=== PATIENT | female | born 1945 | race Caucasian/White ===

== ENCOUNTER → 2016-10-27 | Outpatient (CLI) | payer MEDICARE, BC ==
--- NOTE | 2016-10-27 15:38 | CR ---
EXAMINATION: Right knee HISTORY: Pain COMPARISON: 09/29/2016 TECHNIQUE: 3 views FINDINGS/IMPRESSION: Right total knee hardware is demonstrated in good position and alignment. No ac [place] osseous abnormality or fracture identified. Postoperative soft tissue changes noted without an u nderlying joint effusion.
== END | disposition home or self-care (01) ==
LOC: MW.CHORTHO 07:56
PROVIDERS: ATTEND Orthopaedic Surgery
DX: M25.561 Pain in right knee (principal); M79.1 Myalgia; L90.5 Scar conditions and fibrosis of skin; M79.89 Other specified soft tissue disorders; Z96.651 Presence of right artificial knee joint; M17.11 Unilateral primary osteoarthritis, right knee; Z98.890 Other specified postprocedural states
CPT/HCPCS: 20550; 73562; G0463; J1030

== ENCOUNTER → 2016-12-01 | Outpatient (CLI) | payer MEDICARE, BC | LOC: MW.CHORTHO 08:00 | PROVIDERS: ATTEND Orthopaedic Surgery | DX: M17.11 Unilateral primary osteoarthritis, right knee (principal); Z96.651 Presence of right artificial knee joint | CPT/HCPCS: G0463 ==

== ENCOUNTER → 2017-01-12 | Outpatient (CLI) | payer MEDICARE, BC | LOC: MW.CHORTHO 08:00 | PROVIDERS: ATTEND Orthopaedic Surgery | DX: M17.12 Unilateral primary osteoarthritis, left knee (principal); M17.11 Unilateral primary osteoarthritis, right knee; T84.84XA Pain due to internal orthopedic prosthetic devices, implants and grafts, initial encounter; Z96.659 Presence of unspecified artificial knee joint | CPT/HCPCS: 99214 ==

== ENCOUNTER → 2017-01-19 | Outpatient (CLI) | payer MEDICARE, BC | LOC: MW.MRI 10:47 | PROVIDERS: ATTEND Orthopaedic Surgery | DX: M17.12 Unilateral primary osteoarthritis, left knee (principal) | CPT/HCPCS: 73721-LT ==

== ENCOUNTER 2017-02-15 08:00 | Inpatient (IN) | payer MEDICARE, BC ==
[~2017-02-15 08:00] MED LIST: Acetaminophen 500 MG Tab PO SCH; Famotidine 20 MG/2 ML SDV IVPUSH SCH; Ropivacaine 49.25 ML, EPINEPHrine 0.5 MG, cloNIDine 80 MCG in Sodium Chloride 0.9% 49.4... INJECT ONE; Scopolamine 1.5 MG Transdermal Patch TRDERM SCH; ceFAZolin 2 GM in Premix Bag 1 BAG IV SCH; oxyCODONE ER 10 MG TAB.ER PO SCH
[2017-02-15] MEDS: Lactated Ringers 1,000 ML IV SCH ×2 (10:01→20:19)
[2017-02-15] MEDS ORDERED: Lidocaine 1% 50 ML MDV ONE (10:38)
[2017-02-15] MEDS ORDERED: Midazolam 1 MG/ML 2 ML SDV ONE ×2 (10:58→11:49)
[2017-02-15] MEDS ORDERED: fentaNYL 100 MCG/2 ML SDV ONE (10:58)
[2017-02-15] MEDS ORDERED: Propofol 200 MG/20 ML SDV ONE ×3 (11:03→13:23)
[2017-02-15] MEDS ORDERED: ceFAZolin 1 GM Vial ONE (11:28)
[2017-02-15] MEDS ORDERED: Lidocaine 2% 5 ML SDV ONE (11:36)
--- NOTE | 2017-02-15 11:48 | PCM.PREANE ---
Preanesthetic Assessment - Procedure Proposed Procedure: right knee arthroscopy, and left total knee replacement - Anesthesia/Transfusion/Family Hx Anesthesia History: Prior Anesthesia Without Reaction Other Type of Anesthesia Reaction Comment: Denies any known problem in past Family History of Anesthesia Reaction: No Transfusion History: No Prior Transfusion(s) Intubation History: Unknown - Review of Systems General: No Symptoms Pulmonary: No Symptoms (hx of asthma....uses inhaler daily) Cardiovascular: Other (hypertension-treated) Gastrointestinal: No symptoms Neurological: Other (pain in right knee (s/p replacement)) Other: Reports: Diabetes - Physical Assessment NPO Status Date: 02/14/17 NPO Status Time: 22:00 O2 Sat by Pulse Oximetry: 95 Respiratory Rate: 16 Temperature: 98.8 F Vital Signs: Last Vital Signs Temp 98.8 F 02/15/17 10:56 Pulse 77 02/15/17 09:59 Resp 16 02/15/17 09:59 BP 133/76 02/15/17 09:59 Pulse Ox 95 02/15/17 09:59 Height: 5 ft 3 in Weight: 178 lb ASA Class: 3 Mental Status: Alert & Oriented x3 Dentition: Reports: Normal Dentition ROM/Head Extension: Full Lungs: Clear to auscultation, Normal respiratory effort Cardiovascular: Regular Rate, Regular Rhythm - Lab Values: Laboratory Last Values Blood Type O POSITIVE 02/15/17 10:30 Antibody Screen NEGATIVE 02/15/17 10:30 - Allergies Allergies/Adverse Reactions: Allergies Allergy/AdvReac Type Severity Reaction Status Date / Time No Known Allergies Allergy Verified 09/10/16 12:22 - Blood Blood Available: Yes Product(s) Available: PRBC (T and S) - Anesthesia Plan Pre-Op Medication Ordered: Other (per surgeon) - Acknowledgements Anesthesia Type Planned: Spinal Pt an Appropriate Candidate for the Planned Anesthesia: Yes Alternatives and Risks of Anesthesia Discussed w Pt/Guardian: Yes Pt/Guardian Understands and Agrees with Anesthesia Plan: Yes PreAnesthesia Questionnaire HEENT History: Reports: Other (See Below) Other HEENT History: loss of hearing left ear, wears glasses Cardiovascular History: Reports: Hypertension, Other (See Below) Other Cardiovascular History: states "had blood clot to stomach in 1973 which caused a miscarriage" Respiratory History: Reports: Asthma Other Respiratory History: mild asthma Gastrointestinal History: Reports: Cholelithiasis, Diverticulosis, Other (See Below) Other Gastrointestinal History: occasional reflux Genitourinary History: Reports: None 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: Musculoskeletal History: Reports: Arthritis, Back Pain, Chronic, Fibromyalgia, Osteoporosis Neurological History: Reports: None Other Neuro History: Degenerative disc disease low back Psychiatric History: Reports: None Endocrine/Metabolic History: Reports: Obesity/BMI 30+ Hematologic History: Reports: None Immunologic History: Reports: None Oncologic (Cancer) History: Reports: None Dermatologic History: Reports: None - Infectious Disease History Infectious Disease History: Reports: Chicken Pox, Measles, Mumps - Past Surgical History Head Surgeries/Procedures: Reports: None HEENT Surgical History: Reports: Other (See Below) Other HEENT Surgeries/Procedures: Fer cataract extraction with lens implants Cardiovascular Surgical History: Reports: None Respiratory Surgical History: Reports: None GI Surgical History: Reports: Appendectomy, Cholecystectomy, Colonoscopy Female Surgical History: Reports: Hysterectomy Other Female Surgeries/Procedures: urinary frequency Neurological Surgical History: Reports: None Musculoskeletal Surgical History: Reports: Arthroscopic Knee, Carpal Tunnel, Knee Replacement, Other (See Below) Other Musculoskeletal Surgeries/Procedures:: trigger finger release on both hands, Oncologic Surgical History: Reports: None - SUBSTANCE USE Smoking Status *Q: Never Smoker Tobacco Use Within Last Twelve Months: No Second Hand Smoke Exposure: No Days Per Week of Alcohol Use: 0 Number of Drinks Per Day: 0 Total Drinks Per Week: 0 Recreational Drug Use History: No - HOME MEDS Home Medications: Home Meds Albuterol [Proair HFA] 1 - 2 inh INH ASDIRECTED PRN 04/04/15 [History] Losartan Potassium 12.5 mg PO BRK 04/04/15 [History] Ca Citrate/Mgox/Vit D3/B6/Min [Calcium Citrate Plus Tablet] 1 tab PO DAILY 06/05 [History] Coconut Oil 1 cap PO DAILY 06/05/16 [History] Multivitamin [Multi-Day Vitamins] 1 tab PO DAILY 06/05/16 [History] Acetaminophen [Arthritis Pain Relief] 2 tab PO ASDIRECTED PRN 02/11/17 [History] Cholecalciferol (Vitamin D3) [Vitamin D3] 5,000 units PO ASDIRECTED 02/11/17 [ History] - CURRENT (IN HOUSE) MEDS Current Meds: Current Medications Acetaminophen (Tylenol Extra Strength) 1,000 mg PO ONARRIVE SRINIVAS Last Admin: 02/15/17 10:56 Dose: 1,000 mg Famotidine (Pepcid) 40 mg IVPUSH ONARRIVE SRINIVAS Last Admin: 02/15/17 10:57 Dose: 40 mg Lactated Ringer's (Ringers, Lactated) 1,000 mls @ 100 mls/hr IV ASDIRECTED SRINIVAS Last Admin: 02/15/17 10:01 Dose: 100 mls/hr Cefazolin Sodium/Dextrose 2 gm (/ Premix) 50 mls @ 100 mls/hr IV ONCALL SRINIVAS Oxycodone HCl (Oxycontin) 10 mg PO ONARRIVE SRINIVAS Last Admin: 02/15/17 10:57 Dose: 10 mg Scopolamine (Transderm-Scop) 1.5 mg TRDERM ONARRIVE SRINIVAS Last Admin: 02/15/17 10:55 Dose: 1.5 mg Tranexamic Acid (Cyklokapron) 4,000 mg IV SEECOMMENT [facility] Discontinued Medications Cefazolin Sodium (Ancef) Confirm Administered Dose 2 gm .ROUTE .STK-MED ONE Stop: 02/15/17 11:29 Fentanyl (Sublimaze) Confirm Administered Dose 100 mcg .ROUTE .STK-MED ONE Stop: 02/15/17 10:59 Ropivacaine 49.25 ml/Epinephrine HCl 0.5 mg/Clonidine HCl 80 mcg/ Sodium Chloride 100 mls @ 50 mls/min INJECT ONETIME ONE Stop: 02/15/17 07:16 Lidocaine (Xylocaine-Mpf 2%) Confirm Administered Dose 5 ml .ROUTE .STK-MED ONE Stop: 02/15/17 11:37 Lidocaine HCl (Xylocaine 1%) Confirm Administered Dose 50 ml .ROUTE .STK-MED ONE Stop: 02/15/17 10:39 Midazolam HCl (Versed 1 Mg/Ml) Confirm Administered Dose 2 mg .ROUTE .STK-MED ONE Stop: 02/15/17 10:59 Propofol (Diprivan 20 Ml) Confirm Administered Dose 400 mg .ROUTE .STK-MED ONE Stop: 02/15/17 11:04 Tranexamic Acid (Cyklokapron) Confirm Administered Dose 2,000 mg .ROUTE .STK- MED ONE Stop: 02/15/17 06:54 Tranexamic Acid (Cyklokapron) Confirm Administered Dose 4,000 mg .ROUTE .STK- MED ONE Stop: 02/15/17 10:26
[2017-02-15] MEDS ORDERED: Metoclopramide 10 MG/2 ML SDV IVPUSH ONE (12:06)
[2017-02-15] MEDS ORDERED: HYDROmorphone 2 MG/ML Syringe IVPUSH PRN (12:06)
[2017-02-15] MEDS ORDERED: Ondansetron 4 MG/2 ML SDV IVPUSH ONE (12:06)
[2017-02-15] MEDS ORDERED: fentaNYL 100 MCG/2 ML SDV IVPUSH PRN (12:06)
--- NOTE | 2017-02-15 12:06 | PCM.SN ---
- Free Text/Narrative Note: Anesthesia SAB note: Pt to OR via cart. Helped to OR table. Positioned for sitting SAB. After monitors placed on pt the pt back was prepped with beta X3. Lido 1% skin wheal and deep injection. Introducer placed and a 25g Pencan SAB needle place until a pop was felt. The stylet was pulled out and clear CSF noted. No parathesia noted. 14mg Spinal bupivicaine was injected in a slow fashion. NO complications noted for SAB. 25mcg fentanyl intrathecal 1135 uneventful SAB
[2017-02-15] MEDS ORDERED: Bupivacaine 0.5% 30 ML SDV ONE (12:18)
[2017-02-15] MEDS ORDERED: Bupivacaine 0.25% 10 ML SDV ONE (12:20)
[2017-02-15] MEDS ORDERED: Morphine 4 MG/ML Syringe IVPUSH PRN (14:16)
[2017-02-15] MEDS ORDERED: Aluminum Hydroxide/Magnesium Hydroxide/Simethicone Susp 30 ML Cup PO PRN (14:16)
[2017-02-15] MEDS ORDERED: Bisacodyl 10 MG Supp RECTAL PRN (14:16)
[2017-02-15] MEDS ORDERED: Albuterol 8 GM Inhaler INH PRN (14:19)
[2017-02-15] MEDS ORDERED: Acetaminophen 500 MG Tab PO SCH (14:30)
--- NOTE | 2017-02-15 14:33 | PCM.OPNOTE ---
- General Post-Op/Procedure Note Date of Surgery/Procedure: 02/15/17 Operative Procedure(s): 1. L TKA. 2. R knee arthroscopy with limited synovectomy Post-Op Diagnosis: 1. DJD left knee. 2. s/p right knee TKA with synovitis/scar tissue Anesthesia Technique: Moderate sedation, Spinal Primary Surgeon: Shanice Sigala Iv Therapy Nurse: Dov Aguero Iv Therapy Nurse: Laurence Layton EBL in mLs: 50 Condition: Good Free Text/Narrative:: tt=33 min right, 56 min left #[id number]
--- NOTE | 2017-02-15 15:00 | PCM.POSTAN ---
POST ANESTHESIA ASSESSMENT - MENTAL STATUS Mental Status: alert, oriented - RESPIRATORY Respiratory Status: respiratory rate WNL, airway patent, O2 saturation stable - CARDIOVASCULAR CV Status: pulse rate WNL, blood pressure stable - GASTROINTESTINAL GI Status: no symptoms - PAIN Pain Score: 0 (sensation still blocked although moving her feet.) - POST OP HYDRATION Hydration Status: adequate & stable - OBSERVATIONS Free Text/Narrative:: discharged to the floor for phase II.
--- NOTE | 2017-02-15 15:29 | OR ---
SURGEON: Shanice Sigala MD DATE OF PROCEDURE: 02/15/2017 PREOPERATIVE DIAGNOSES: 1. Degenerative joint disease left knee, tricompartmental. 2. Status post right total knee arthroplasty. 3. Painful right total knee arthroplasty. POSTOPERATIVE DIAGNOSES: 1. Degenerative joint disease left knee, tricompartmental. 2. Status post right total knee arthroplasty. 3. Painful right total knee arthroplasty. PROCEDURE(s): 1. Left total knee arthroplasty using patient specific instrumentation. 2. Right knee arthroscopy with limited synovectomy. 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 ANESTHESIA: Spinal with sedation. ESTIMATED BLOOD LOSS: 50 mL. TOURNIQUET TIME: 36 minutes on the right and 56 minutes on the left. COMPLICATIONS: None. DVT PROPHYLAXIS: PAS boot and HARDIK hose to the nonoperative leg during the total knee arthroplasty. IMPLANTS USED: [employer] femoral component size E (LPS), tibial component, size 4, 12 mm all-polyethylene articular surface, and 32 mm all-polyethylene patella. INTRAOPERATIVE FINDINGS: Findings from the left total knee arthroplasty showed evidence of tricompartmental degenerative changes. She had grade 4 chondromalacia in all compartments. Osteophyte formation was also noted. She had no significant synovitis. A 1 g of tranexamic acid was given prior to the tourniquet inflation. An additional 1 g was given IV upon deflation of the tourniquet. We did apply 1 g of TXA topically as the cement was allowed to harden. BRIEF HISTORY: Michelle is a 71-year-old female, who has had complaint of progressive left knee pain. She had failed conservative treatment. Due to her lack of response to conservative treatment, I did recommend surgical intervention. The risks and goals of procedure were discussed with the patient and were documented preoperatively. She agreed to proceed. She has recently noticed increased pain in her right knee as well. She complains of a catching sensation with certain movements. She was examined in clinic. We did do a trial of conservative treatment, which did not help her. Due to her continued mechanical symptoms, I did recommend a knee arthroscopy to evaluate the prosthesis as well as the scar tissue. The risks and goals of the procedure were discussed with the patient and were documented preoperatively. She agreed to proceed. DESCRIPTION OF PROCEDURE: The patient was properly identified and brought to the operating room. She was transferred from the OR cart and placed on the operating table in a supine position. Spinal anesthesia was then administered by the anesthesia staff. After adequate anesthesia was obtained, a well-padded tourniquet was applied to the right lower extremity. The right lower extremity was then prepped in standard fashion using ChloraPrep solution. It was then sterilely draped. A time-out was performed to ensure correct site and procedure. Preoperative antibiotics were given. The surgical sites were not marked due to the bilateral nature of the procedures. An Esmarch was used to exsanguinate the right lower extremity and then tourniquet was inflated to 250 mmHg. Her knee was examined. She did have motion from 0 to 120 degrees. She was stable to varus and valgus stressing, and did not appear to have a significant anterior translation. The lateral portal arthrotomy was made over the site of the previous arthrotomy. Blunt trocar and cannula were introduced into the suprapatellar space. Camera, inflow, and outflow were assembled. She had no significant scar tissue in the suprapatellar space. She did have abundant scar tissue surrounding the patella. The patella appeared to track centrally. No wear of the patella was noted. The trochlea showed no abnormal findings. I then used an 11 blade scalpel to make the medial portal arthrotomy through the site of the previous arthrotomy incision. A trocar was introduced into the suprapatellar region. A shaver was then introduced. Synovectomy of the surrounding scar tissue around the patella was then performed. There appeared to be no further catching of the tissue within the joint. I then extended down the lateral gutter. No loose bodies were identified. I then extended down the medial gutter. No loose bodies were identified. There was abundant scar formation in this area. This seemed to impinge within the medial joint space between the articular surface and the femoral prosthesis. A shaver was used to resect this. I then entered the notch. The post was visualized. This was extensively probed. It did not appear to have significant loosening. I was able to visualize the polyethylene interface with the tibial tray as the post was probed. I did not appreciate any movement at this site consistent with good stability. The lateral gutter also showed significant synovitis and scar tissue, which appeared to be impinging as well. The shaver was used to resect this portion of soft tissue as well. The knee was then taken through a range of motion. No catching or impingement was palpated or appreciated. Instruments were then removed from the knee. The portal sites were closed with 3-0 nylon. A 0.5% Marcaine was injected along the portal tracts. Xeroform gauze was placed over the wound and a bulky dressing was applied. The tourniquet was then deflated. FELISHA CAMPUZANO /[id number] KRYSTAL
[2017-02-15] MEDS: Acetaminophen 500 MG Tab PO SCH ×2 (15:55→21:38)
[2017-02-15] MEDS: oxyCODONE 5 MG Tab PO PRN ×2 (15:55→21:39)
--- NOTE | 2017-02-15 16:59 | CR ---
EXAMINATION: Left knee HISTORY: Total knee replacement COMPARISON: 09/29/2016 TECHNIQUE: 2 views FINDINGS/IMPRESSION: Left total knee hardware is demonstrated in good position and alignment. Postop erative soft tissue changes are noted.
[2017-02-15] MEDS: Ondansetron 4 MG/2 ML SDV IV PRN (18:12)
[2017-02-15] MEDS: oxyCODONE ER 20 MG TAB.ER PO SCH (20:14)
[2017-02-15] MEDS: Docusate Sodium 100 MG Cap PO SCH (20:14)
[2017-02-15] MEDS: ceFAZolin 2 GM in Premix Bag 1 BAG IV SCH (20:16)
[2017-02-16] MEDS: Acetaminophen 500 MG Tab PO SCH ×4 (04:09→21:09)
[2017-02-16] MEDS: ceFAZolin 2 GM in Premix Bag 1 BAG IV SCH (04:12)
[2017-02-16] MEDS: Lactated Ringers 1,000 ML IV SCH (07:33)
[2017-02-16] MEDS: oxyCODONE 5 MG Tab PO PRN ×3 (07:41→17:12)
[2017-02-16] MEDS: Ondansetron 4 MG/2 ML SDV IV PRN (07:41)
[2017-02-16] MEDS ORDERED: Sodium Chloride 0.9% 2.5 ML Syringe FLUSH PRN (08:08)
[2017-02-16] MEDS ORDERED: Sodium Chloride 0.9% 10 ML Syringe FLUSH PRN (08:08)
--- NOTE | 2017-02-16 08:08 | PCM.SURGPN ---
[id number] of Surgery/Procedure: 02/15/17 POD#: 1 Functional Status: Reports: pain controlled, tolerating diet, ambulating - Review of Systems General: Reports: No Symptoms Pulmonary: Reports: no symptoms Cardiovascular: Reports: No Symptoms Gastrointestinal: Reports: No symptoms Genitourinary: Reports: no symptoms Musculoskeletal: Reports: leg pain, joint pain, joint swelling Neurological: Reports: No Symptoms Psychiatric: Reports: no symptoms - Patient Data Vitals - most recent: Last Vital Signs Temp 37.4 C 02/16/17 07:41 Pulse 89 02/16/17 07:41 Resp 20 02/16/17 07:41 BP 128/65 02/16/17 07:41 Pulse Ox 90 L 02/16/17 07:41 Weight - most recent: 80.739 kg I&O - last 24 hours: Intake & Output 02/15/17 02/16/17 02/16/17 22:59 06:59 14:59 Intake Total 563 350 Output Total 450 Balance 563 -100 Lab Results last 24 hrs: Laboratory Results - last 24 hr 02/15/17 02/16/17 Range/Units 10:30 04:28 Hgb 12.0 (12.0-16.0) g/dL Hct 36.7 (36.0-46.0) % Blood Type O POSITIVE Antibody Screen NEGATIVE Med Orders - Current: Current Medications Acetaminophen (Tylenol Extra Strength) 1,000 mg PO Q6H [facility] Last Admin: 02/16/17 04:09 Dose: 1,000 mg Al Hydroxide/Mg Hydroxide (Mag-Al Plus) 30 ml PO Q4H PRN PRN Reason: indigestion Last Admin: 02/15/17 21:38 Dose: 30 ml Albuterol (Ventolin Hfa) 8 gm INH Q4H PRN PRN Reason: Shortness of Breath Aspirin (Aspirin) 325 mg PO BID [facility] Bisacodyl (Dulcolax) 10 mg RECTAL DAILY PRN PRN Reason: Constipation Calcium Citrate (Calcitrate) 950 mg PO DAILY [facility] Cholecalciferol (Vitamin D3) 5,000 units PO Q2D [facility] Diphenhydramine HCl (Benadryl) 25 - 50 mg PO Q6H PRN PRN Reason: Itching Docusate Sodium (Colace) 100 mg PO BID [facility] Last Admin: 02/15/17 20:14 Dose: 100 mg Lactated Ringer's (Ringers, Lactated) 1,000 mls @ 100 mls/hr IV ASDIRECTED [facility] Last Admin: 02/16/17 07:33 Dose: 100 mls/hr Losartan Potassium (Cozaar) 12.5 mg PO BRK [facility] Morphine Sulfate (Morphine) 1 - 3 mg IVPUSH Q3H PRN PRN Reason: Pain Last Admin: 02/15/17 17:20 Dose: 3 mg Ondansetron HCl (Zofran) 4 mg IV Q6HR PRN PRN Reason: NAUSEA/VOMITING Last Admin: 02/16/17 07:41 Dose: 4 mg Oxycodone HCl (Oxycodone) 5 - 10 mg PO Q4H PRN PRN Reason: Pain Last Admin: 02/16/17 07:41 Dose: 10 mg Oxycodone HCl (Oxycontin) 20 mg PO Q12HR [facility] Last Admin: 02/15/17 20:14 Dose: 20 mg Scopolamine (Transderm-Scop) 1.5 mg TRDERM ONARRIVE [facility] Last Admin: 02/15/17 10:55 Dose: 1.5 mg Discontinued Medications Acetaminophen (Tylenol Extra Strength) 1,000 mg PO ONARRIVE [facility] Last Admin: 02/15/17 10:56 Dose: 1,000 mg Acetaminophen (Tylenol Extra Strength) 1,000 mg PO Q6H [facility] Last Admin: 02/15/17 15:43 Dose: Not Given Bupivacaine HCl (Marcaine 0.5%) Confirm Administered Dose 30 ml .ROUTE .STK-MED ONE Stop: 02/15/17 12:19 Bupivacaine HCl (Sensorcaine-Mpf 0.25%) Confirm Administered Dose 10 ml .ROUTE .STK-MED ONE Stop: 02/15/17 12:21 Cefazolin Sodium (Ancef) Confirm Administered Dose 2 gm .ROUTE .STK-MED ONE Stop: 02/15/17 11:29 Famotidine (Pepcid) 40 mg IVPUSH ONARRIVE [facility] Last Admin: 02/15/17 10:57 Dose: 40 mg Fentanyl (Sublimaze) Confirm Administered Dose 100 mcg .ROUTE .STK-MED ONE Stop: 02/15/17 10:59 Fentanyl (Sublimaze) 50 mcg IVPUSH Q5M PRN PRN Reason: Pain (severe 7-10) Stop: 02/16/17 12:07 Hydromorphone HCl (Dilaudid) 0.25 mg IVPUSH Q10M PRN PRN Reason: Pain (severe 7-10) Stop: 02/16/17 12:06 Ropivacaine 49.25 ml/Epinephrine HCl 0.5 mg/Clonidine HCl 80 mcg/ Sodium Chloride 100 mls @ 50 mls/min INJECT ONETIME ONE Stop: 02/15/17 07:16 Last Admin: 02/15/17 15:42 Dose: Not Given Cefazolin Sodium/Dextrose 2 gm (/ Premix) 50 mls @ 100 mls/hr IV ONCALL [facility] Cefazolin Sodium/Dextrose 2 gm (/ Premix) 50 mls @ 100 mls/hr IV Q8H [facility] Stop: 02/16/17 05:29 Last Admin: 02/16/17 04:12 Dose: 100 mls/hr Lidocaine (Xylocaine-Mpf 2%) Confirm Administered Dose 5 ml .ROUTE .STK-MED ONE Stop: 02/15/17 11:37 Lidocaine HCl (Xylocaine 1%) Confirm Administered Dose 50 ml .ROUTE .STK-MED ONE Stop: 02/15/17 10:39 Metoclopramide HCl (Reglan) 10 mg IVPUSH ONETIME ONE Stop: 02/15/17 12:07 Last Admin: 02/15/17 15:40 Dose: Not Given Midazolam HCl (Versed 1 Mg/Ml) Confirm Administered Dose 2 mg .ROUTE .STK-MED ONE Stop: 02/15/17 10:59 Midazolam HCl (Versed 1 Mg/Ml) Confirm Administered Dose 2 mg .ROUTE .STK-MED ONE Stop: 02/15/17 11:50 Ondansetron HCl (Zofran) 4 mg IVPUSH ONETIME ONE Stop: 02/15/17 12:07 Last Admin: 02/15/17 15:40 Dose: Not Given Oxycodone HCl (Oxycontin) 10 mg PO ONARRIVE [facility] Last Admin: 02/15/17 10:57 Dose: 10 mg Propofol (Diprivan 20 Ml) Confirm Administered Dose 400 mg .ROUTE .STK-MED ONE Stop: 02/15/17 11:04 Propofol (Diprivan 20 Ml) Confirm Administered Dose 200 mg .ROUTE .STK-MED ONE Stop: 02/15/17 12:50 Propofol (Diprivan 20 Ml) Confirm Administered Dose 200 mg .ROUTE .STK-MED ONE Stop: 02/15/17 13:24 Tranexamic Acid (Cyklokapron) 4,000 mg IV SEECOMMENT [facility] Tranexamic Acid (Cyklokapron) Confirm Administered Dose 2,000 mg .ROUTE .STK- MED ONE Stop: 02/15/17 06:54 Tranexamic Acid (Cyklokapron) Confirm Administered Dose 4,000 mg .ROUTE .STK- MED ONE Stop: 02/15/17 10:26 - Exam Wound/Incisions: dressing dry and intact (Bilateral dressings dry and intact) General: alert, oriented HEENT: Pupils equal, Pupils reactive Neck: trachea midline Lungs: Normal respiratory effort Cardiovascular: Regular Rate Extremities: other (Bilateral anterior tibialis, extensor hallucis longus and gastrocnemius strength +5/5. Sensation intact. Dorsalis pedis and posterior tibial pulses +2 bilaterally. ) Neurological: no new focal deficit Psy/Mental Status: alert, normal affect, normal mood - Problem List Review Problem List Initiated/Reviewed/Updated: Yes - My Orders Last 24 Hours: Active Orders 24 hr Category Date Time Status Patient Status [ADT] Routine ADT 02/15/17 09:56 Active Transfer Patient (Change bed) [ADT] Routine ADT 02/15/17 09:56 Ordered Activity as Tolerated [RC] .Routine Care 02/15/17 14:16 Active Intake and Output [RC] Q12H Care 02/15/17 14:16 Active Neurovascular Check [RC] Q2HR Care 02/15/17 14:16 Active Notify Provider Vital Signs [RC] ASDIRECTED Care 02/15/17 14:16 Active RT Incentive Spirometry [RC] Care 02/15/17 14:16 Active Vital Signs [RC] Q4H Care 02/15/17 14:16 Active PT Evaluation and Treatment [CONS] Routine Cons 02/15/17 14:16 Active HEMOGLOBIN/HEMATOCRIT,HH [HEME] DAILY Lab 02/17/17 07:00 Ordered HEMOGLOBIN/HEMATOCRIT,HH [HEME] DAILY Lab 02/18/17 07:00 Ordered Acetaminophen [Tylenol Extra Strength] Med 02/15/17 16:00 Active 1,000 mg PO Q6H Albuterol [Ventolin HFA] Med 02/15/17 14:19 Active 8 gm INH Q4H PRN Alum Hydrox/Mag Hydrox/Simeth [Mag-Al Plus] Med 02/15/17 14:16 Active 30 ml PO Q4H PRN Aspirin Med 02/16/17 09:00 Active 325 mg PO BID Bisacodyl [Dulcolax] Med 02/15/17 14:16 Active 10 mg RECTAL DAILY PRN Calcium Citrate [Calcitrate] Med 02/16/17 09:00 Active 950 mg PO DAILY Cholecalciferol (Vitamin D3) [Vitamin D3] Med 02/16/17 09:00 Active 5,000 units PO Q2D Docusate Sodium [Colace] Med 02/15/17 21:00 Active 100 mg PO BID Losartan [Cozaar] Med 02/16/17 08:00 Active 12.5 mg PO BRK Morphine Med 02/15/17 14:16 Active 1 - 3 mg IVPUSH Q3H PRN Ondansetron [Zofran] Med 02/15/17 14:16 Active 4 mg IV Q6HR PRN diphenhydrAMINE [Benadryl] Med 02/15/17 14:16 Active 25 - 50 mg PO Q6H PRN oxyCODONE Med 02/15/17 14:16 Active 5 - 10 mg PO Q4H PRN oxyCODONE ER [OxyCONTIN] Med 02/15/17 21:00 Active 20 mg PO Q12HR Ice Therapy [OM.PC] Routine Oth 02/15/17 14:16 Ordered Medication Orders Acetaminophen (Tylenol Extra Strength) 1,000 mg PO Q6H [facility] Last Admin: 02/16/17 04:09 Dose: 1,000 mg Admin: 02/15/17 21:38 Dose: 1,000 mg Admin: 02/15/17 15:55 Dose: 1,000 mg Al Hydroxide/Mg Hydroxide (Mag-Al Plus) 30 ml PO Q4H PRN PRN Reason: indigestion Last Admin: 02/15/17 21:38 Dose: 30 ml Albuterol (Ventolin Hfa) 8 gm INH Q4H PRN PRN Reason: Shortness of Breath Aspirin (Aspirin) 325 mg PO BID [facility] Bisacodyl (Dulcolax) 10 mg RECTAL DAILY PRN PRN Reason: Constipation Calcium Citrate (Calcitrate) 950 mg PO DAILY [facility] Cholecalciferol (Vitamin D3) 5,000 units PO Q2D [facility] Diphenhydramine HCl (Benadryl) 25 - 50 mg PO Q6H PRN PRN Reason: Itching Docusate Sodium (Colace) 100 mg PO BID [facility] Last Admin: 02/15/17 20:14 Dose: 100 mg Lactated Ringer's (Ringers, Lactated) 1,000 mls @ 100 mls/hr IV ASDIRECTED [facility] Last Admin: 02/16/17 07:33 Dose: 100 mls/hr Infusion: 02/16/17 06:19 Dose: 100 mls/hr Admin: 02/15/17 20:19 Dose: 100 mls/hr Infusion: 02/15/17 20:01 Dose: 100 mls/hr Admin: 02/15/17 10:01 Dose: 100 mls/hr Losartan Potassium (Cozaar) 12.5 mg PO BRK [facility] Morphine Sulfate (Morphine) 1 - 3 mg IVPUSH Q3H PRN PRN Reason: Pain Last Admin: 02/15/17 17:20 Dose: 3 mg Ondansetron HCl (Zofran) 4 mg IV Q6HR PRN PRN Reason: NAUSEA/VOMITING Last Admin: 02/16/17 07:41 Dose: 4 mg Admin: 02/15/17 18:12 Dose: 4 mg Oxycodone HCl (Oxycodone) 5 - 10 mg PO Q4H PRN PRN Reason: Pain Last Admin: 02/16/17 07:41 Dose: 10 mg Admin: 02/15/17 21:39 Dose: 10 mg Admin: 02/15/17 15:55 Dose: 10 mg Oxycodone HCl (Oxycontin) 20 mg PO Q12HR [facility] Last Admin: 02/15/17 20:14 Dose: 20 mg Scopolamine (Transderm-Scop) 1.5 mg TRDERM ONARRIVE [facility] Last Admin: 02/15/17 10:55 Dose: 1.5 mg - Assessment Assessment (Free Text/Narrative):: Patient up to chair this AM Pain controlled this AM, not well controlled over night Does complain of dizziness this AM Tolerating diet Denies chest pain, SOB or abdominal pain UO 1160 mL Hgb 12 VSS - Plan Plan (Free Text/Narrative):: Continue pain management Continue PT Dizziness- DC Scopolamine patch IV to saline lock, thomas out today Start Aspirin 325 mg PO BID for DVT prophylaxis Possible D/C home tomorrow if pain controlled <Shanice Sigala - Last Filed: 02/17/17 09:25> - Patient Data Vitals - most recent: Last Vital Signs Temp 98.4 F 02/17/17 08:22 Pulse 102 H 02/17/17 08:22 Resp 22 H 02/17/17 08:22 BP 122/59 L 02/17/17 08:46 Pulse Ox 93 L 02/17/17 08:22 I&O - last 24 hours: Intake & Output 02/16/17 02/17/17 02/17/17 22:59 06:59 14:59 Intake Total 1040 500 Output Total 350 350 Balance 690 150 Lab Results last 24 hrs: Laboratory Results - last 24 hr 02/17/17 Range/Units 04:53 Hgb 11.3 L (12.0-16.0) g/dL Hct 34.7 L (36.0-46.0) % Med Orders - Current: Current Medications Acetaminophen (Tylenol Extra Strength) 1,000 mg PO Q6H [facility] Last Admin: 02/17/17 09:14 Dose: 1,000 mg Al Hydroxide/Mg Hydroxide (Mag-Al Plus) 30 ml PO Q4H PRN PRN Reason: indigestion Last Admin: 02/15/17 21:38 Dose: 30 ml Albuterol (Ventolin Hfa) 8 gm INH Q4H PRN PRN Reason: Shortness of Breath Aspirin (Aspirin) 325 mg PO BID [facility] Last Admin: 02/17/17 08:40 Dose: 325 mg Bisacodyl (Dulcolax) 10 mg RECTAL DAILY PRN PRN Reason: Constipation Calcium Citrate (Calcitrate) 950 mg PO DAILY [facility] Last Admin: 02/17/17 08:40 Dose: 950 mg Cholecalciferol (Vitamin D3) 5,000 units PO Q2D [facility] Last Admin: 02/16/17 09:08 Dose: 5,000 units Diphenhydramine HCl (Benadryl) 25 - 50 mg PO Q6H PRN PRN Reason: Itching Last Admin: 02/16/17 12:14 Dose: 50 mg Docusate Sodium (Colace) 100 mg PO BID [facility] Last Admin: 02/17/17 08:40 Dose: 100 mg Lactated Ringer's (Ringers, Lactated) 1,000 mls @ 100 mls/hr IV ASDIRECTED [facility] Last Admin: 02/16/17 07:33 Dose: 100 mls/hr Losartan Potassium (Cozaar) 12.5 mg PO BRK [facility] Last Admin: 02/17/17 08:46 Dose: 12.5 mg Morphine Sulfate (Morphine) 1 - 3 mg IVPUSH Q3H PRN PRN Reason: Pain Last Admin: 02/15/17 17:20 Dose: 3 mg Ondansetron HCl (Zofran) 4 mg IV Q6HR PRN PRN Reason: NAUSEA/VOMITING Last Admin: 02/16/17 07:41 Dose: 4 mg Oxycodone HCl (Oxycodone) 5 - 10 mg PO Q4H PRN PRN Reason: Pain Last Admin: 02/16/17 17:12 Dose: 5 mg Oxycodone HCl (Oxycontin) 20 mg PO Q12HR [facility] Last Admin: 02/17/17 08:40 Dose: 20 mg Sodium Chloride (Saline Flush) 10 ml FLUSH ASDIRECTED PRN PRN Reason: Keep Vein Open Sodium Chloride (Saline Flush) 2.5 ml FLUSH ASDIRECTED PRN PRN Reason: Keep Vein Open Discontinued Medications Acetaminophen (Tylenol Extra Strength) 1,000 mg PO ONARRIVE [facility] Last Admin: 02/15/17 10:56 Dose: 1,000 mg Acetaminophen (Tylenol Extra Strength) 1,000 mg PO Q6H [facility] Last Admin: 02/15/17 15:43 Dose: Not Given Bupivacaine HCl (Marcaine 0.5%) Confirm Administered Dose 30 ml .ROUTE .STK-MED ONE Stop: 02/15/17 12:19 Bupivacaine HCl (Sensorcaine-Mpf 0.25%) Confirm Administered Dose 10 ml .ROUTE .STK-MED ONE Stop: 02/15/17 12:21 Cefazolin Sodium (Ancef) Confirm Administered Dose 2 gm .ROUTE .STK-MED ONE Stop: 02/15/17 11:29 Famotidine (Pepcid) 40 mg IVPUSH ONARRIVE [facility] Last Admin: 02/15/17 10:57 Dose: 40 mg Fentanyl (Sublimaze) Confirm Administered Dose 100 mcg .ROUTE .STK-MED ONE Stop: 02/15/17 10:59 Fentanyl (Sublimaze) 50 mcg IVPUSH Q5M PRN PRN Reason: Pain (severe 7-10) Stop: 02/16/17 12:07 Hydromorphone HCl (Dilaudid) 0.25 mg IVPUSH Q10M PRN PRN Reason: Pain (severe 7-10) Stop: 02/16/17 12:06 Ropivacaine 49.25 ml/Epinephrine HCl 0.5 mg/Clonidine HCl 80 mcg/ Sodium Chloride 100 mls @ 50 mls/min INJECT ONETIME ONE Stop: 02/15/17 07:16 Last Admin: 02/15/17 15:42 Dose: Not Given Cefazolin Sodium/Dextrose 2 gm (/ Premix) 50 mls @ 100 mls/hr IV ONCALL [facility] Cefazolin Sodium/Dextrose 2 gm (/ Premix) 50 mls @ 100 mls/hr IV Q8H [facility] Stop: 02/16/17 05:29 Last Admin: 02/16/17 04:12 Dose: 100 mls/hr Lidocaine (Xylocaine-Mpf 2%) Confirm Administered Dose 5 ml .ROUTE .STK-MED ONE Stop: 02/15/17 11:37 Lidocaine HCl (Xylocaine 1%) Confirm Administered Dose 50 ml .ROUTE .STK-MED ONE Stop: 02/15/17 10:39 Metoclopramide HCl (Reglan) 10 mg IVPUSH ONETIME ONE Stop: 02/15/17 12:07 Last Admin: 02/15/17 15:40 Dose: Not Given Midazolam HCl (Versed 1 Mg/Ml) Confirm Administered Dose 2 mg .ROUTE .STK-MED ONE Stop: 02/15/17 10:59 Midazolam HCl (Versed 1 Mg/Ml) Confirm Administered Dose 2 mg .ROUTE .STK-MED ONE Stop: 02/15/17 11:50 Ondansetron HCl (Zofran) 4 mg IVPUSH ONETIME ONE Stop: 02/15/17 12:07 Last Admin: 02/15/17 15:40 Dose: Not Given Oxycodone HCl (Oxycontin) 10 mg PO ONARRIVE [facility] Last Admin: 02/15/17 10:57 Dose: 10 mg Propofol (Diprivan 20 Ml) Confirm Administered Dose 400 mg .ROUTE .[facility] ONE Stop: 02/15/17 11:04 Propofol (Diprivan 20 Ml) Confirm Administered Dose 200 mg .ROUTE .[facility] ONE Stop: 02/15/17 12:50 Propofol (Diprivan 20 Ml) Confirm Administered Dose 200 mg .ROUTE .[facility] ONE Stop: 02/15/17 13:24 Scopolamine (Transderm-Scop) 1.5 mg TRDERM ONARRIVE [facility] Last Admin: 02/15/17 10:55 Dose: 1.5 mg Tranexamic Acid (Cyklokapron) 4,000 mg IV SEECOMMENT [facility] Tranexamic Acid (Cyklokapron) Confirm Administered Dose 2,000 mg .ROUTE .[facility] ONE Stop: 02/15/17 06:54 Tranexamic Acid (Cyklokapron) Confirm Administered Dose 4,000 mg .ROUTE .[facility] ONE Stop: 02/15/17 10:26 - My Orders Last 24 Hours: Active Orders 24 hr Category Date Time Status Ready for Discharge [RC] PER UNIT ROUTINE Care 02/17/17 08:10 Active HEMOGLOBIN/HEMATOCRIT,HH [HEME] DAILY Lab 02/18/17 07:00 Ordered Aspirin Med 02/16/17 09:00 Active 325 mg PO BID Calcium Citrate [Calcitrate] Med 02/16/17 09:00 Active 950 mg PO DAILY Cholecalciferol (Vitamin D3) [Vitamin D3] Med 02/16/17 09:00 Active 5,000 units PO Q2D Medication Orders Acetaminophen (Tylenol Extra Strength) 1,000 mg PO Q6H [facility] Last Admin: 02/17/17 09:14 Dose: 1,000 mg Admin: 02/17/17 04:38 Dose: 1,000 mg Admin: 02/16/17 21:09 Dose: 1,000 mg Admin: 02/16/17 17:11 Dose: 1,000 mg Admin: 02/16/17 09:07 Dose: 1,000 mg Admin: 02/16/17 04:09 Dose: 1,000 mg Admin: 02/15/17 21:38 Dose: 1,000 mg Admin: 02/15/17 15:55 Dose: 1,000 mg Al Hydroxide/Mg Hydroxide (Mag-Al Plus) 30 ml PO Q4H PRN PRN Reason: indigestion Last Admin: 02/15/17 21:38 Dose: 30 ml Albuterol (Ventolin Hfa) 8 gm INH Q4H PRN PRN Reason: Shortness of Breath Aspirin (Aspirin) 325 mg PO BID [facility] Last Admin: 02/17/17 08:40 Dose: 325 mg Admin: 02/16/17 21:09 Dose: 325 mg Admin: 02/16/17 08:56 Dose: 325 mg Bisacodyl (Dulcolax) 10 mg RECTAL DAILY PRN PRN Reason: Constipation Calcium Citrate (Calcitrate) 950 mg PO DAILY [facility] Last Admin: 02/17/17 08:40 Dose: 950 mg Admin: 02/16/17 08:55 Dose: 950 mg Cholecalciferol (Vitamin D3) 5,000 units PO Q2D [facility] Last Admin: 02/16/17 09:08 Dose: 5,000 units Diphenhydramine HCl (Benadryl) 25 - 50 mg PO Q6H PRN PRN Reason: Itching Last Admin: 02/16/17 12:14 Dose: 50 mg Docusate Sodium (Colace) 100 mg PO BID [facility] Last Admin: 02/17/17 08:40 Dose: 100 mg Admin: 02/16/17 21:09 Dose: 100 mg Admin: 02/16/17 08:56 Dose: 100 mg Admin: 02/15/17 20:14 Dose: 100 mg Lactated Ringer's (Ringers, Lactated) 1,000 mls @ 100 mls/hr IV ASDIRECTED [facility] Last Admin: 02/16/17 07:33 Dose: 100 mls/hr Infusion: 02/16/17 06:19 Dose: 100 mls/hr Admin: 02/15/17 20:19 Dose: 100 mls/hr Infusion: 02/15/17 20:01 Dose: 100 mls/hr Admin: 02/15/17 10:01 Dose: 100 mls/hr Losartan Potassium (Cozaar) 12.5 mg PO BRK [facility] Last Admin: 02/17/17 08:46 Dose: 12.5 mg Admin: 02/16/17 08:56 Dose: 12.5 mg Morphine Sulfate (Morphine) 1 - 3 mg IVPUSH Q3H PRN PRN Reason: Pain Last Admin: 02/15/17 17:20 Dose: 3 mg Ondansetron HCl (Zofran) 4 mg IV Q6HR PRN PRN Reason: NAUSEA/VOMITING Last Admin: 02/16/17 07:41 Dose: 4 mg Admin: 02/15/17 18:12 Dose: 4 mg Oxycodone HCl (Oxycodone) 5 - 10 mg PO Q4H PRN PRN Reason: Pain Last Admin: 02/16/17 17:12 Dose: 5 mg Admin: 02/16/17 12:01 Dose: 5 mg Admin: 02/16/17 07:41 Dose: 10 mg Admin: 02/15/17 21:39 Dose: 10 mg Admin: 02/15/17 15:55 Dose: 10 mg Oxycodone HCl (Oxycontin) 20 mg PO Q12HR [facility] Last Admin: 02/17/17 08:40 Dose: 20 mg Admin: 02/16/17 21:11 Dose: 20 mg Admin: 02/16/17 08:57 Dose: 20 mg Admin: 02/15/17 20:14 Dose: 20 mg Sodium Chloride (Saline Flush) 10 ml FLUSH ASDIRECTED PRN PRN Reason: Keep Vein Open Sodium Chloride (Saline Flush) 2.5 ml FLUSH ASDIRECTED PRN PRN Reason: Keep Vein Open - Plan Plan (Free Text/Narrative):: Late entry: Patient seen and examined at 1300 yesterday. States she didn't have much of an appetite, but otherwise no complaints. Has not noticed any futher catching in her right knee. Has been up with PT. Dressing dry/intact. NVI. Will increase ambulation. Continue current pain management. probably discharge home tomorrow.
[2017-02-16] MEDS: Calcium Citrate 950 MG Tab PO SCH (08:55)
[2017-02-16] MEDS: Aspirin 325 MG Tab PO SCH ×2 (08:56→21:09)
[2017-02-16] MEDS: Docusate Sodium 100 MG Cap PO SCH ×2 (08:56→21:09)
[2017-02-16] MEDS: Losartan 50 MG Tab PO SCH (08:56)
[2017-02-16] MEDS: oxyCODONE ER 20 MG TAB.ER PO SCH ×2 (08:57→21:11)
[2017-02-16] MEDS ORDERED: Cholecalciferol (Vitamin D3) 1,000 Unit Tab PO SCH (09:00)
--- NOTE | 2017-02-16 09:38 | PCM48HPAN ---
Post Anesthesia Note - EVALUATION WITHIN 48HRS OF ANESTHETIC Vital Signs in Normal Range: Yes Patient Participated in Evaluation: Yes Respiratory Function Stable: Yes Airway Patent: Yes Cardiovascular Function Stable: Yes Hydration Status Stable: Yes Pain Control Satisfactory: Yes Nausea and Vomiting Control Satisfactory: Yes Mental Status Recovered: Yes - COMMENTS/OBSERVATIONS Free Text/Narrative:: Walked with satisfaction with care and progress since both knees had been operated.
[2017-02-16] MEDS: diphenhydrAMINE 25 MG Cap PO PRN (12:14)
[2017-02-17] MEDS: Acetaminophen 500 MG Tab PO SCH ×2 (04:38→09:14)
--- NOTE | 2017-02-17 08:08 | PCM.SURGPN ---
- General Info Date of Service: 02/17/17 Date of Surgery/Procedure: 02/15/17 POD#: 2 Functional Status: Reports: pain controlled, tolerating diet, ambulating, urinating - Review of Systems General: Reports: No Symptoms HEENT: Reports: no symptoms Pulmonary: Reports: no symptoms Cardiovascular: Reports: No Symptoms Gastrointestinal: Reports: No symptoms Genitourinary: Reports: no symptoms Musculoskeletal: Reports: leg pain, joint pain, joint swelling Neurological: Reports: No Symptoms Psychiatric: Reports: no symptoms - Patient Data Vitals - most recent: Last Vital Signs Temp 37.4 C 02/17/17 08:00 Pulse 103 H 02/17/17 08:00 Resp 22 H 02/17/17 08:00 BP 101/55 L 02/17/17 08:00 Pulse Ox 93 L 02/17/17 08:00 Weight - most recent: 80.739 kg I&O - last 24 hours: Intake & Output 02/16/17 02/17/17 02/17/17 22:59 06:59 14:59 Intake Total 1040 500 Output Total 350 350 Balance 690 150 Lab Results last 24 hrs: Laboratory Results - last 24 hr 02/17/17 Range/Units 04:53 Hgb 11.3 L (12.0-16.0) g/dL Hct 34.7 L (36.0-46.0) % Med Orders - Current: Current Medications Acetaminophen (Tylenol Extra Strength) 1,000 mg PO Q6H [facility] Last Admin: 02/17/17 04:38 Dose: 1,000 mg Al Hydroxide/Mg Hydroxide (Mag-Al Plus) 30 ml PO Q4H PRN PRN Reason: indigestion Last Admin: 02/15/17 21:38 Dose: 30 ml Albuterol (Ventolin Hfa) 8 gm INH Q4H PRN PRN Reason: Shortness of Breath Aspirin (Aspirin) 325 mg PO BID [facility] Last Admin: 02/16/17 21:09 Dose: 325 mg Bisacodyl (Dulcolax) 10 mg RECTAL DAILY PRN PRN Reason: Constipation Calcium Citrate (Calcitrate) 950 mg PO DAILY [facility] Last Admin: 02/16/17 08:55 Dose: 950 mg Cholecalciferol (Vitamin D3) 5,000 units PO Q2D [facility] Last Admin: 02/16/17 09:08 Dose: 5,000 units Diphenhydramine HCl (Benadryl) 25 - 50 mg PO Q6H PRN PRN Reason: Itching Last Admin: 02/16/17 12:14 Dose: 50 mg Docusate Sodium (Colace) 100 mg PO BID [facility] Last Admin: 02/16/17 21:09 Dose: 100 mg Lactated Ringer's (Ringers, Lactated) 1,000 mls @ 100 mls/hr IV ASDIRECTED [facility] Last Admin: 02/16/17 07:33 Dose: 100 mls/hr Losartan Potassium (Cozaar) 12.5 mg PO BRK [facility] Last Admin: 02/16/17 08:56 Dose: 12.5 mg Morphine Sulfate (Morphine) 1 - 3 mg IVPUSH Q3H PRN PRN Reason: Pain Last Admin: 02/15/17 17:20 Dose: 3 mg Ondansetron HCl (Zofran) 4 mg IV Q6HR PRN PRN Reason: NAUSEA/VOMITING Last Admin: 02/16/17 07:41 Dose: 4 mg Oxycodone HCl (Oxycodone) 5 - 10 mg PO Q4H PRN PRN Reason: Pain Last Admin: 02/16/17 17:12 Dose: 5 mg Oxycodone HCl (Oxycontin) 20 mg PO Q12HR [facility] Last Admin: 02/16/17 21:11 Dose: 20 mg Sodium Chloride (Saline Flush) 10 ml FLUSH ASDIRECTED PRN PRN Reason: Keep Vein Open Sodium Chloride (Saline Flush) 2.5 ml FLUSH ASDIRECTED PRN PRN Reason: Keep Vein Open Discontinued Medications Acetaminophen (Tylenol Extra Strength) 1,000 mg PO ONARRIVE [facility] Last Admin: 02/15/17 10:56 Dose: 1,000 mg Acetaminophen (Tylenol Extra Strength) 1,000 mg PO Q6H [facility] Last Admin: 02/15/17 15:43 Dose: Not Given Bupivacaine HCl (Marcaine 0.5%) Confirm Administered Dose 30 ml .ROUTE .STK-MED ONE Stop: 02/15/17 12:19 Bupivacaine HCl (Sensorcaine-Mpf 0.25%) Confirm Administered Dose 10 ml .ROUTE .STK-MED ONE Stop: 02/15/17 12:21 Cefazolin Sodium (Ancef) Confirm Administered Dose 2 gm .ROUTE .STK-MED ONE Stop: 02/15/17 11:29 Famotidine (Pepcid) 40 mg IVPUSH ONARRIVE [facility] Last Admin: 02/15/17 10:57 Dose: 40 mg Fentanyl (Sublimaze) Confirm Administered Dose 100 mcg .ROUTE .STK-MED ONE Stop: 02/15/17 10:59 Fentanyl (Sublimaze) 50 mcg IVPUSH Q5M PRN PRN Reason: Pain (severe 7-10) Stop: 02/16/17 12:07 Hydromorphone HCl (Dilaudid) 0.25 mg IVPUSH Q10M PRN PRN Reason: Pain (severe 7-10) Stop: 02/16/17 12:06 Ropivacaine 49.25 ml/Epinephrine HCl 0.5 mg/Clonidine HCl 80 mcg/ Sodium Chloride 100 mls @ 50 mls/min INJECT ONETIME ONE Stop: 02/15/17 07:16 Last Admin: 02/15/17 15:42 Dose: Not Given Cefazolin Sodium/Dextrose 2 gm (/ Premix) 50 mls @ 100 mls/hr IV ONCALL SRINIVAS Cefazolin Sodium/Dextrose 2 gm (/ Premix) 50 mls @ 100 mls/hr IV Q8H [facility] Stop: 02/16/17 05:29 Last Admin: 02/16/17 04:12 Dose: 100 mls/hr Lidocaine (Xylocaine-Mpf 2%) Confirm Administered Dose 5 ml .ROUTE .STK-MED ONE Stop: 02/15/17 11:37 Lidocaine HCl (Xylocaine 1%) Confirm Administered Dose 50 ml .ROUTE .STK-MED ONE Stop: 02/15/17 10:39 Metoclopramide HCl (Reglan) 10 mg IVPUSH ONETIME ONE Stop: 02/15/17 12:07 Last Admin: 02/15/17 15:40 Dose: Not Given Midazolam HCl (Versed 1 Mg/Ml) Confirm Administered Dose 2 mg .ROUTE .STK-MED ONE Stop: 02/15/17 10:59 Midazolam HCl (Versed 1 Mg/Ml) Confirm Administered Dose 2 mg .ROUTE .STK-MED ONE Stop: 02/15/17 11:50 Ondansetron HCl (Zofran) 4 mg IVPUSH ONETIME ONE Stop: 02/15/17 12:07 Last Admin: 02/15/17 15:40 Dose: Not Given Oxycodone HCl (Oxycontin) 10 mg PO ONARRIVE [facility] Last Admin: 02/15/17 10:57 Dose: 10 mg Propofol (Diprivan 20 Ml) Confirm Administered Dose 400 mg .ROUTE .STK-MED ONE Stop: 02/15/17 11:04 Propofol (Diprivan 20 Ml) Confirm Administered Dose 200 mg .ROUTE .STK-MED ONE Stop: 02/15/17 12:50 Propofol (Diprivan 20 Ml) Confirm Administered Dose 200 mg .ROUTE .STK-MED ONE Stop: 02/15/17 13:24 Scopolamine (Transderm-Scop) 1.5 mg TRDERM ONARRIVE [facility] Last Admin: 02/15/17 10:55 Dose: 1.5 mg Tranexamic Acid (Cyklokapron) 4,000 mg IV SEECOMMENT [facility] Tranexamic Acid (Cyklokapron) Confirm Administered Dose 2,000 mg .ROUTE .STK- MED ONE Stop: 02/15/17 06:54 Tranexamic Acid (Cyklokapron) Confirm Administered Dose 4,000 mg .ROUTE .STK- MED ONE Stop: 02/15/17 10:26 - Exam Wound/Incisions: dressing dry and intact (Dressing changed today.), no drainage General: alert, oriented HEENT: Pupils equal, Pupils reactive Neck: trachea midline Lungs: Normal respiratory effort Cardiovascular: Regular Rate Extremities: other (Left anterior tibialis, extensor hallucis longus and gastrocnemius strength +5/5 bilaterally. Sensation intact. Dorsalis pedis and posterior tibial pulses +2 bilaterally.) Neurological: no new focal deficit Psy/Mental Status: alert, normal affect, normal mood - Problem List Review Problem List Initiated/Reviewed/Updated: Yes - My Orders Last 24 Hours: Active Orders 24 hr Category Date Time Status HEMOGLOBIN/HEMATOCRIT,HH [HEME] DAILY Lab 02/18/17 07:00 Ordered Aspirin Med 02/16/17 09:00 Active 325 mg PO BID Calcium Citrate [Calcitrate] Med 02/16/17 09:00 Active 950 mg PO DAILY Cholecalciferol (Vitamin D3) [Vitamin D3] Med 02/16/17 09:00 Active 5,000 units PO Q2D Losartan [Cozaar] Med 02/16/17 08:00 Active 12.5 mg PO BRK Sodium Chloride 0.9% [Saline Flush] Med 02/16/17 08:08 Active 10 ml FLUSH ASDIRECTED PRN Sodium Chloride 0.9% [Saline Flush] Med 02/16/17 08:08 Active 2.5 ml FLUSH ASDIRECTED PRN Convert IV to Saline Lock [OM.PC] Routine Oth 02/16/17 08:08 Ordered Medication Orders Acetaminophen (Tylenol Extra Strength) 1,000 mg PO Q6H [facility] Last Admin: 02/17/17 04:38 Dose: 1,000 mg Admin: 02/16/17 21:09 Dose: 1,000 mg Admin: 02/16/17 17:11 Dose: 1,000 mg Admin: 02/16/17 09:07 Dose: 1,000 mg Admin: 02/16/17 04:09 Dose: 1,000 mg Admin: 02/15/17 21:38 Dose: 1,000 mg Admin: 02/15/17 15:55 Dose: 1,000 mg Al Hydroxide/Mg Hydroxide (Mag-Al Plus) 30 ml PO Q4H PRN PRN Reason: indigestion Last Admin: 02/15/17 21:38 Dose: 30 ml Albuterol (Ventolin Hfa) 8 gm INH Q4H PRN PRN Reason: Shortness of Breath Aspirin (Aspirin) 325 mg PO BID [facility] Last Admin: 02/16/17 21:09 Dose: 325 mg Admin: 02/16/17 08:56 Dose: 325 mg Bisacodyl (Dulcolax) 10 mg RECTAL DAILY PRN PRN Reason: Constipation Calcium Citrate (Calcitrate) 950 mg PO DAILY [facility] Last Admin: 02/16/17 08:55 Dose: 950 mg Cholecalciferol (Vitamin D3) 5,000 units PO Q2D [facility] Last Admin: 02/16/17 09:08 Dose: 5,000 units Diphenhydramine HCl (Benadryl) 25 - 50 mg PO Q6H PRN PRN Reason: Itching Last Admin: 02/16/17 12:14 Dose: 50 mg Docusate Sodium (Colace) 100 mg PO BID [facility] Last Admin: 02/16/17 21:09 Dose: 100 mg Admin: 02/16/17 08:56 Dose: 100 mg Admin: 02/15/17 20:14 Dose: 100 mg Lactated Ringer's (Ringers, Lactated) 1,000 mls @ 100 mls/hr IV ASDIRECTED [facility] Last Admin: 02/16/17 07:33 Dose: 100 mls/hr Infusion: 02/16/17 06:19 Dose: 100 mls/hr Admin: 02/15/17 20:19 Dose: 100 mls/hr Infusion: 02/15/17 20:01 Dose: 100 mls/hr Admin: 02/15/17 10:01 Dose: 100 mls/hr Losartan Potassium (Cozaar) 12.5 mg PO BRK [facility] Last Admin: 02/16/17 08:56 Dose: 12.5 mg Morphine Sulfate (Morphine) 1 - 3 mg IVPUSH Q3H PRN PRN Reason: Pain Last Admin: 02/15/17 17:20 Dose: 3 mg Ondansetron HCl (Zofran) 4 mg IV Q6HR PRN PRN Reason: NAUSEA/VOMITING Last Admin: 02/16/17 07:41 Dose: 4 mg Admin: 02/15/17 18:12 Dose: 4 mg Oxycodone HCl (Oxycodone) 5 - 10 mg PO Q4H PRN PRN Reason: Pain Last Admin: 02/16/17 17:12 Dose: 5 mg Admin: 02/16/17 12:01 Dose: 5 mg Admin: 02/16/17 07:41 Dose: 10 mg Admin: 02/15/17 21:39 Dose: 10 mg Admin: 02/15/17 15:55 Dose: 10 mg Oxycodone HCl (Oxycontin) 20 mg PO Q12HR [facility] Last Admin: 02/16/17 21:11 Dose: 20 mg Admin: 02/16/17 08:57 Dose: 20 mg Admin: 02/15/17 20:14 Dose: 20 mg Sodium Chloride (Saline Flush) 10 ml FLUSH ASDIRECTED PRN PRN Reason: Keep Vein Open Sodium Chloride (Saline Flush) 2.5 ml FLUSH ASDIRECTED PRN PRN Reason: Keep Vein Open - Assessment Assessment (Free Text/Narrative):: Patient up to chair this AM Pain controlled Tolerating diet VSS UO 700 mL Hgb 11.3 - Plan Plan (Free Text/Narrative):: Continue pain management Continue PT Encourage PO fluid intake D/C home this afternoon after PT
[2017-02-17] MEDS: oxyCODONE ER 20 MG TAB.ER PO SCH (08:40)
[2017-02-17] MEDS: Docusate Sodium 100 MG Cap PO SCH (08:40)
[2017-02-17] MEDS: Aspirin 325 MG Tab PO SCH (08:40)
[2017-02-17] MEDS: Calcium Citrate 950 MG Tab PO SCH (08:40)
[2017-02-17] MEDS: Losartan 50 MG Tab PO SCH (08:46)
[2017-02-17] MEDS: diphenhydrAMINE 25 MG Cap PO PRN (11:02)
[2017-02-17 11:41] VITALS: BP 130/59
[2017-02-17] MEDS ORDERED: Acetaminophen/HYDROcodone 325-10 MG Tab PO PRN (12:44)
[2017-02-17] MEDS ORDERED: traMADol 50 MG Tab PO PRN (12:44)
--- NOTE | 2017-02-17 12:59 | PCM.SN ---
- Free Text/Narrative Note: Patient seen and examined. Agree with Laci PAC note. Patient has been progressing with physical therapy. She did do stairclimbing earlier today. Her pain has been fairly well controlled. She continues to have some nausea. She states that following her last total knee arthroplasty she used hydrocodone and Ultram which gave her good pain relief. Will plan on switching her to these as it could be her pain medications which are causing her nausea. Dressing is dry and intact. NVI. Will plan to discharge home later today. She should continue with outpatient physical therapy. She is advised to contact us if she has questions or concerns. Patient is in agreement with the plan.
--- NOTE | 2017-02-18 11:09 | PCM.SN ---
- Free Text/Narrative Note: Discharge summary Dressing was changed prior to discharge. See discharge plan for complete list of discharge medications and instructions. Dictation #: [id number]
--- NOTE | 2017-02-19 04:51 | DISCH ---
DATE OF DISCHARGE: 02/17/2017 PRIMARY CARE PHYSICIAN: Wade Cunningham MD ADMITTING DIAGNOSES: 1. Degenerative joint disease, left knee, tricompartmental. 2. Status post right total knee arthroplasty. 3. Painful right total knee arthroplasty. OTHER MEDICAL DIAGNOSES: 1. Hypertension. 2. Asthma. DISCHARGE DIAGNOSES: 1. Status post left total knee arthroplasty. 2. Status post right knee arthroscopy. 3. Hypertension. 4. Asthma. BRIEF HISTORY: The patient is a 71-year-old female, who has had complaint of progressive left knee pain. She has failed conservative treatment. Due to her lack of response to conservative treatment, surgical intervention was recommended at that time. The patient has also recently experienced increased pain in her right knee. She complains of a catching sensation with certain movements. She was examined in clinic. A trial of conservative treatment did not improve her symptoms. Due to her continued mechanical symptoms, surgical intervention was recommended at that time. OPERATIONS: 1. Left total knee arthroplasty. 2. Right knee arthroscopy. HOSPITAL COURSE: Pain was controlled with combination of IV and p.o. pain medications. The patient was given two doses of Ancef postoperatively for 24 hours antibiotic coverage. The patient was followed by Physical Therapy during her hospital stay. Upon discharge, vital signs were stable and the patient was afebrile. Hemoglobin on day of discharge was 11.3. Aspirin 325 mg, was started on postop day 1 for DVT prophylaxis. Pain is currently controlled with oral pain medications only. She is tolerating oral intake and ambulating with wheeled walker. She feels comfortable with discharge home today. DISCHARGE MEDICATIONS: 1. [place] 10/325 mg. 2. Aspirin 325 mg. 3. Colace 100 mg. 4. Tramadol 50 mg. DISCHARGE INSTRUCTIONS: 1. Patient will follow up in the clinic on February 25, 2017. This appointment was made for the patient. 2. Outpatient physical therapy, 2 to 3 times per week for 4-6 weeks. 3. Polar Care to the left knee. 4. HARDIK hose to the right lower extremity, on the morning and off in the evening. For complete medication reconciliation and discharge instructions, please refer to the referred to the patient EHR. If the patient has questions or concerns prior to followup, she may call the clinic. JANEEN CAMPUZANO /[id number] MTDD
== END 2017-02-17 15:00 | disposition home or self-care (01) | DRG 470 ==
LOC: MW.MS 09:30
PROVIDERS: ADMIT Orthopaedic Surgery; ATTEND Orthopaedic Surgery
PROC: 0SRD0J9 Replacement of Left Knee Joint with Synthetic Substitute, Cemented, Open Approach (ICD-10-PCS; principal; 2017-02-15)
PROC: 0SBC4ZZ Excision of Right Knee Joint, Percutaneous Endoscopic Approach (ICD-10-PCS; 2017-02-15)
DX: M17.12 Unilateral primary osteoarthritis, left knee (principal); M25.561 Pain in right knee; Z96.651 Presence of right artificial knee joint
CPT/HCPCS: 01402; 36415; 73560-26-LT; 73560-LT; 85014; 85018; 86850; 86900; 86901; 88304; 88311; 97110-GP; 97162-GP; 97530-GP; A9270-GY; C1713; C1776; J0171; J0690; J0735; J2250; J2270; J2405; J2704; J2795; J3010; J7050; J7120

== ENCOUNTER 2017-05-10 10:55 | Day surgery (SDC) | payer MEDICARE, BC ==
[~2017-05-10 10:55] MED LIST changes: -Acetaminophen 500 MG Tab PO SCH; +Acetaminophen/HYDROcodone 325-5 MG Tab PO PRN; -Famotidine 20 MG/2 ML SDV IVPUSH SCH; +Lactated Ringers 1,000 ML IV SCH; -Ropivacaine 49.25 ML, EPINEPHrine 0.5 MG, cloNIDine 80 MCG in Sodium Chloride 0.9% 49.4... INJECT ONE; -Scopolamine 1.5 MG Transdermal Patch TRDERM SCH; -ceFAZolin 2 GM in Premix Bag 1 BAG IV SCH; -oxyCODONE ER 10 MG TAB.ER PO SCH
[2017-05-10] MEDS ORDERED: Propofol 200 MG/20 ML SDV ONE (12:55)
[2017-05-10] MEDS ORDERED: fentaNYL 100 MCG/2 ML SDV ONE (12:56)
[2017-05-10] MEDS ORDERED: Midazolam 1 MG/ML 2 ML SDV ONE (12:56)
--- NOTE | 2017-05-10 13:35 | PCM.PREANE ---
Preanesthetic Assessment - Procedure Proposed Procedure: left knee manipulation; s/p L TKA 12 weeks ago - Anesthesia/Transfusion/Family Hx Anesthesia History: Prior Anesthesia Without Reaction Other Type of Anesthesia Reaction Comment: Denies any known problem in past Family History of Anesthesia Reaction: No Transfusion History: No Prior Transfusion(s) Intubation History: Unknown - Review of Systems General: Other (stiff left leg; arthritis ) Pulmonary: Wheezing (intermittent treatment with inhaler needed - asthmatic) Cardiovascular: Other (HTN - treated, ) Gastrointestinal: No Symptoms Neurological: Difficulty Walking (due to knee stiffness) Other: Reports: None - Physical Assessment NPO Status Date: 05/09/17 NPO Status Time: 23:00 O2 Sat by Pulse Oximetry: 96 Respiratory Rate: 16 Vital Signs: Last Vital Signs Temp 98.4 F 05/10/17 11:30 Pulse 65 05/10/17 11:30 Resp 16 05/10/17 11:30 BP 154/70 H 05/10/17 11:30 Pulse Ox 96 05/10/17 11:30 Height: 5 ft 3 in Weight: 170 lb ASA Class: 3 Mental Status: Alert & Oriented x3 Airway Class: Mallampati = 2 Dentition: Reports: Normal Dentition Thyro-Mental Finger Breadths: 3 Mouth Opening Finger Breadths: 3 ROM/Head Extension: Full Lungs: Clear to Auscultation, Normal Respiratory Effort Cardiovascular: Regular Rate, Regular Rhythm, No Murmurs - Allergies Allergies/Adverse Reactions: Allergies Allergy/AdvReac Type Severity Reaction Status Date / Time No Known Allergies Allergy Verified 05/04/17 16:32 - Blood Blood Available: No Product(s) Available: None - Acknowledgements Anesthesia Type Planned: General Anesthesia (will do induction meds and airway managment: surgeon aware of plan) Pt an Appropriate Candidate for the Planned Anesthesia: Yes Alternatives and Risks of Anesthesia Discussed w Pt/Guardian: Yes Pt/Guardian Understands and Agrees with Anesthesia Plan: Yes PreAnesthesia Questionnaire HEENT History: Reports: Cataract, Hard of Hearing, Other (See Below) Other HEENT History: loss of hearing left ear, wears glasses Cardiovascular History: Reports: Hypertension, Other (See Below) Other Cardiovascular History: states "had blood clot to stomach in 1973 which caused a miscarriage" Respiratory History: Reports: Asthma Other Respiratory History: mild asthma Gastrointestinal History: Reports: Cholelithiasis, Diverticulosis, Other (See Below) Other Gastrointestinal History: occasional reflux Genitourinary History: Reports: None [employer]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: Musculoskeletal History: Reports: Arthritis, Back Pain, Chronic, Osteoporosis Neurological History: Reports: None Other Neuro History: Degenerative disc disease low back Psychiatric History: Reports: None Endocrine/Metabolic History: Reports: Obesity/BMI 30+ Hematologic History: Reports: None Immunologic History: Reports: None Oncologic (Cancer) History: Reports: None Dermatologic History: Reports: None - Infectious Disease History Infectious Disease History: Reports: Chicken Pox, Measles, Mumps - Past Surgical History Musculoskeletal Surgical History: Reports: Arthroscopic Knee, Carpal Tunnel, Knee Replacement, Shoulder Surgery, Other (See Below) Other Musculoskeletal Surgeries/Procedures:: trigger finger release on both hands, Arthroscopy right knee post TKA, right RTCR - SUBSTANCE USE Smoking Status *Q: Never Smoker Tobacco Use Within Last Twelve Months: No Second Hand Smoke Exposure: No Days Per Week of Alcohol Use: 0 Number of Drinks Per Day: 0 Total Drinks Per Week: 0 Recreational Drug Use History: No - HOME MEDS Home Medications: Home Meds Albuterol [Proair HFA] 1 - 2 inh INH Q4H PRN 04/04/15 [History] Losartan Potassium 12.5 mg PO BRK 04/04/15 [History] Ca Citrate/Mgox/Vit D3/B6/Min [Calcium Citrate Plus Tablet] 1 tab PO DAILY 06/05 [History] Coconut Oil 1 cap PO DAILY 06/05/16 [History] Multivitamin [Multi-Day Vitamins] 1 tab PO DAILY 06/05/16 [History] Cholecalciferol (Vitamin D3) [Vitamin D3] 5,000 units PO Q2D 02/11/17 [History] Diclofenac Sodium [Voltaren] 75 mg PO BID 05/04/17 [History] - CURRENT (IN HOUSE) MEDS Current Meds: Current Medications Hydrocodone Bitart/Acetaminophen (Jameson 325-5 Mg) 1 - 2 tab PO Q4H PRN PRN Reason: Pain Lactated Ringer's (Ringers, Lactated) 1,000 mls @ 100 mls/hr IV ASDIRECTED [facility] Last Admin: 05/10/17 11:35 Dose: 100 mls/hr Discontinued Medications Fentanyl (Sublimaze) Confirm Administered Dose 100 mcg .ROUTE .STK-MED ONE Stop: 05/10/17 12:57 Lidocaine HCl (Xylocaine-Mpf 1%) Confirm Administered Dose 5 ml .ROUTE .STK-MED ONE Stop: 05/10/17 12:58 Midazolam HCl (Versed 1 Mg/Ml) Confirm Administered Dose 2 mg .ROUTE .STK-MED ONE Stop: 05/10/17 12:57 Propofol (Diprivan 20 Ml) Confirm Administered Dose 200 mg .ROUTE .STK-MED ONE Stop: 05/10/17 12:56
[2017-05-10] MEDS ORDERED: Succinylcholine/Normal Saline 200 MG/10 ML Syringe ONE (13:39)
[2017-05-10] MEDS ORDERED: Ondansetron 4 MG/2 ML SDV ONE (13:53)
[2017-05-10] MEDS ORDERED: Rocuronium 10 MG/ML 10 ML Syringe ONE (13:53)
[2017-05-10] MEDS ORDERED: Dexamethasone 4 MG/ML 5 ML MDV ONE (13:53)
--- NOTE | 2017-05-10 14:42 | PCM.OPNOTE ---
- General Post-Op/Procedure Note Date of Surgery/Procedure: 05/10/17 Operative Procedure(s): L knee manipulation, s/p L TKA Post-Op Diagnosis: Arthrofibrosis left knee, s/p TKA Anesthesia Technique: General ET Tube Primary Surgeon: Shanice Sigala Riveter Portable Machine: Dov Aguero in mLs: 0 Condition: Good Free Text/Narrative:: #[id number]
--- NOTE | 2017-05-10 14:48 | PCM.POSTAN ---
POST ANESTHESIA ASSESSMENT - MENTAL STATUS Mental Status: Alert, Oriented - RESPIRATORY Respiratory Status: Respiratory Rate WNL, Airway Patent, O2 Saturation Stable - CARDIOVASCULAR CV Status: Pulse Rate WNL, Blood Pressure Stable - GASTROINTESTINAL GI Status: No Symptoms - POST OP HYDRATION Hydration Status: Adequate & Stable
--- NOTE | 2017-05-10 14:48 | PCM.POSTAN ---
POST ANESTHESIA ASSESSMENT - MENTAL STATUS Mental Status: Alert, Oriented - RESPIRATORY Respiratory Status: Respiratory Rate WNL, Airway Patent, O2 Saturation Stable - CARDIOVASCULAR CV Status: Pulse Rate WNL, Blood Pressure Stable - GASTROINTESTINAL GI Status: No Symptoms - PAIN Pain Score: 4 - POST OP HYDRATION Hydration Status: Adequate & Stable
[2017-05-10] MEDS: fentaNYL 100 MCG/2 ML SDV IVPUSH PRN ×2 (14:50→14:55)
--- NOTE | 2017-05-10 15:51 | PCM48HPAN ---
Post Anesthesia Note - EVALUATION WITHIN 48HRS OF ANESTHETIC Vital Signs in Normal Range: Yes Patient Participated in Evaluation: Yes Respiratory Function Stable: Yes Airway Patent: Yes Cardiovascular Function Stable: Yes Hydration Status Stable: Yes Pain Control Satisfactory: Yes Nausea and Vomiting Control Satisfactory: Yes Mental Status Recovered: Yes
[2017-05-10 17:03] VITALS: BP 133/67
--- NOTE | 2017-05-11 01:06 | OR ---
SURGEON: Shanice Sigala MD DATE OF PROCEDURE: 05/10/2017 PREOPERATIVE DIAGNOSIS: Arthrofibrosis left knee, status post left total knee arthroplasty. POSTOPERATIVE DIAGNOSIS: Arthrofibrosis left knee, status post left total knee arthroplasty. PROCEDURE: Left knee manipulation. DRUM CARRIER: Dov Aguero PA-C. ANESTHESIA: General. ESTIMATED BLOOD LOSS: Zero mL. TOURNIQUET TIME: Zero minutes. COMPLICATIONS: None. DVT PROPHYLAXIS: Not indicated. IMPLANTS USED: None. BRIEF HISTORY: Michelle is a 71-year-old female, who previously underwent a left total knee arthroplasty. She has developed persistent stiffness in the knee following surgery. She has had extensive physical therapy. Due to her lack of response to conservative treatment, I did recommend surgical intervention. The risks and goals of procedure were discussed with the patient and were documented preoperatively. She agreed to proceed. DESCRIPTION OF PROCEDURE: The patient was properly identified and brought to the operating room. She was kept on the OR cart. General anesthesia was administered including full paralysis. After adequate anesthesia was obtained, a time-out was performed to ensure correct site and procedure. Preoperative antibiotics were not given. The surgical site had been marked preoperatively. The hip was flexed to 90 degrees and the knee was also flexed. Initially she had approximately 90 degrees of flexion. Gentle pressure was applied to the distal tibia. I was able to palpate the adhesions releasing within her knee. I was able to apply gentle pressure to bring her to approximately 120 degrees of flexion. This was documented with intraoperative photographs. She had full extension. Her knee was also evaluated for stability. She had good medial lateral stability and there was no sign of significant anterior translation. She was awakened from her anesthetic. She was brought to the recovery room in stable condition. FELISHA / JUSTEN /[id number]
== END 2017-05-10 16:00 | disposition home or self-care (01) ==
LOC: MW.SDS 10:55
PROVIDERS: ATTEND Orthopaedic Surgery
DX: M24.662 Ankylosis, left knee (principal); T84.82XA Fibrosis due to internal orthopedic prosthetic devices, implants and grafts, initial encounter; M17.0 Bilateral primary osteoarthritis of knee; J45.909 Unspecified asthma, uncomplicated; I10 Essential (primary) hypertension; M81.0 Age-related osteoporosis without current pathological fracture; E66.9 Obesity, unspecified; Z79.899 Other long term (current) drug therapy; Z68.32 Body mass index [BMI] 32.0-32.9, adult; Z96.653 Presence of artificial knee joint, bilateral; Z90.49 Acquired absence of other specified parts of digestive tract; Z90.710 Acquired absence of both cervix and uterus; Z90.89 Acquired absence of other organs; Z98.890 Other specified postprocedural states
CPT/HCPCS: 27570; A9270; J1100; J2250; J2405; J3010; J7120; 01400; J2704

== ENCOUNTER 2018-09-25 17:46 | Observation (INO) | payer MEDICARE, BC ==
[2018-09-25] MEDS ORDERED: methylPREDNISolone Sodium Succinate 125 MG/2 ML SDV IVPUSH ONE (17:48)
[2018-09-25] MEDS ORDERED: Albuterol/Ipratropium 3.0-0.5 MG/3 ML Neb Soln NEB ONE ×2 (17:48→18:31)
[2018-09-25] MEDS ORDERED: Sodium Chloride 0.9% 2.5 ML Syringe FLUSH PRN (17:48)
[2018-09-25] MEDS ORDERED: Sodium Chloride 0.9% 10 ML Syringe FLUSH PRN (17:48)
[2018-09-25] MEDS ORDERED: Sodium Chloride 0.9% 1,000 ML IV ONE (17:48)
--- NOTE | 2018-09-25 17:55 | EDM.PDOC ---
ED HPI GENERAL MEDICAL PROBLEM - General Chief Complaint: Respiratory Problem Stated Complaint: HARD TIME BREATHING Time Seen by Provider: 09/25/18 17:48 Source of Information: Reports: Patient History Limitations: Reports: No Limitations - History of Present Illness INITIAL COMMENTS - FREE TEXT/NARRATIVE: History of present illness: []Patient has a history of asthma and started having difficulty breathing on September 07 that has not improved. She was treated with an antibiotic and steroids but is now off those meds. Patient has been using albuterol nebulizers at home without improvement and has progressively been having more difficulty breathing, vomiting, diarrhea or chest pain. Review of systems: As per history of present illness and below otherwise all systems reviewed and negative. Past medical history: As per history of present illness and as reviewed below otherwise noncontributory. Surgical history: As per history of present illness and as reviewed below otherwise noncontributory. Social history: No reported history of drug or alcohol abuse. Family history: As per history of present illness and as reviewed below otherwise noncontributory. Physical exam: General: Well developed, well nourished in mild respiratory distress HEENT: Atraumatic, normocephalic, pupils reactive, negative for conjunctival pallor or scleral icterus, mucous membranes moist, throat clear, neck supple, nontender, trachea midline. Lungs: Bilateral wheezing, accessory muscle use Heart: S1S2, regular, negative for clicks, rubs, or JVD. Abdomen: NABS, Soft, nondistended, nontender. Negative for masses or hepatosplenomegaly. Negative for costovertebral tenderness. Pelvis: Stable nontender. Genitourinary: Deferred. Rectal: Deferred. Extremities: Atraumatic, negative for cords or calf pain. Neurovascular unremarkable. Neuro: Awake, alert, oriented. Cranial nerves II through XII unremarkable. Cerebellum unremarkable. Motor and sensory unremarkable throughout. Exam nonfocal. Skin:warm and dry Diagnostics: O2 sat 91% on arrival, chest x-ray, CBC, chemistry, BNP Therapeutics: DuoNebs x2, Solu-Medrol, saline, magnesium 2 g ED Course: Patient continues to have retractions and wheezing after nebs and IV fluids. Impression: Asthma exacerbation Prescriptions: Plan: C2C Link Definitive disposition and diagnosis as appropriate pending reevaluation and review of above. - Related Data Allergies Allergy/AdvReac Type Severity Reaction Status Date / Time No Known Allergies Allergy Verified 09/25/18 17:49 Home Meds: Home Meds Albuterol [Proair HFA] 1 - 2 inh INH Q4H PRN 04/04/15 [History] Losartan Potassium 12.5 mg PO BRK 04/04/15 [History] Ca Citrate/Mgox/Vit D3/B6/Min [Calcium Citrate Plus Tablet] 1 tab PO DAILY 06/05 [History] Multivitamin [Multi-Day Vitamins] 1 tab PO DAILY 06/05/16 [History] Cholecalciferol (Vitamin D3) [Vitamin D3] 5,000 units PO Q2D 02/11/17 [History] Past Medical History HEENT History: Reports: Cataract, Hard of Hearing, Other (See Below) Other HEENT History: loss of hearing left ear, wears glasses Cardiovascular History: Reports: Hypertension, Other (See Below) Other Cardiovascular History: states "had blood clot to stomach in 1973 which caused a miscarriage" Respiratory History: Reports: Asthma Other Respiratory History: mild asthma Gastrointestinal History: Reports: Cholelithiasis, Diverticulosis, Other (See Below) Other Gastrointestinal History: occasional reflux Genitourinary History: Reports: None 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: Musculoskeletal History: Reports: Arthritis, Back Pain, Chronic, Osteoporosis Neurological History: Reports: None Other Neuro History: Degenerative disc disease low back Psychiatric History: Reports: None Endocrine/Metabolic History: Reports: Obesity/BMI 30+ Hematologic History: Reports: None Immunologic History: Reports: None Oncologic (Cancer) History: Reports: None Dermatologic History: Reports: None - Infectious Disease History Infectious Disease History: Reports: Chicken Pox, Measles, Mumps - Past Surgical History Musculoskeletal Surgical History: Reports: Arthroscopic Knee, Carpal Tunnel, Knee Replacement, Shoulder Surgery, Other (See Below) Other Musculoskeletal Surgeries/Procedures:: trigger finger release on both hands, Arthroscopy right knee post TKA, right RTCR Social & Family History - Family History Cardiac: Reports: Heart Failure Endocrine/Metabolic: Reports: Diabetes, type II Oncologic: Reports: Lung ED ROS GENERAL - Review of Systems Review Of Systems: ROS reveals no pertinent complaints other than HPI. ED EXAM, GENERAL - Physical Exam Exam: See Below (The history of present illness) Course - Vital Signs Last Recorded V/S: Last Vital Signs Temp 96.4 F 09/25/18 17:51 Pulse 81 09/25/18 18:43 Resp 18 09/25/18 18:43 BP 137/99 H 09/25/18 18:43 Pulse Ox 99 09/25/18 18:43 - Orders/Labs/Meds Orders: Active Orders 24 hr Category Date Time Status Oxygen Therapy, ED [RC] ASDIRECTED Care 09/25/18 17:48 Active RT Aerosol Therapy [RC] ASDIRECTED Care 09/25/18 17:48 Active RT Aerosol Therapy [RC] ASDIRECTED Care 09/25/18 18:32 Active Chest 1V Frontal [CR] Stat Exams 09/25/18 17:58 Taken Magnesium Sulfate/Water [Magnesium Sulfate 2 GM in Med 09/25/18 18:31 Active Water 50 ML] 2 gm Premix Bag 1 bag IV ONETIME Sodium Chloride 0.9% [Saline Flush] Med 09/25/18 17:48 Active 10 ml FLUSH ASDIRECTED PRN Sodium Chloride 0.9% [Saline Flush] Med 09/25/18 17:48 Active 2.5 ml FLUSH ASDIRECTED PRN Saline Lock Insert [OM.PC] Stat Oth 09/25/18 17:49 Ordered Medication Orders Magnesium Sulfate 2 gm/ Premix 50 mls @ 25 mls/hr IV ONETIME ONE Stop: 09/25/18 20:30 Last Admin: 09/25/18 18:39 Dose: 25 mls/hr Sodium Chloride (Saline Flush) 10 ml FLUSH ASDIRECTED PRN PRN Reason: Keep Vein Open Last Admin: 09/25/18 18:04 Dose: 10 ml Sodium Chloride (Saline Flush) 2.5 ml FLUSH ASDIRECTED PRN PRN Reason: Keep Vein Open Last Admin: 09/25/18 18:04 Dose: 2.5 ml Labs: Laboratory Tests 09/25/18 09/25/18 09/25/18 Range/Units 17:58 17:58 17:58 WBC 9.54 (4.0-11.0) K/uL RBC 4.51 (4.30-5.90) M/uL Hgb 14.5 (12.0-16.0) g/dL Hct 43.8 (36.0-46.0) % MCV 97.1 (80.0-98.0) fL MCH 32.2 H (27.0-32.0) pg MCHC 33.1 (31.0-37.0) g/dL RDW Std Deviation 45.9 (28.0-62.0) fl RDW Coeff of Farshad 13 (11.0-15.0) % Plt Count 263 (150-400) K/uL MPV 9.70 (7.40-12.00) fL Neut % (Auto) 48.3 (48.0-80.0) % Lymph % (Auto) 34.6 (16.0-40.0) % [place] % (Auto) 8.4 (0.0-15.0) % Eos % (Auto) 8.4 H (0.0-7.0) % Baso % (Auto) 0.3 (0.0-1.5) % Neut # (Auto) 4.6 (1.4-5.7) K/uL Lymph # (Auto) 3.3 H (0.6-2.4) K/uL [place] # (Auto) 0.8 (0.0-0.8) K/uL Eos # (Auto) 0.8 H (0.0-0.7) K/uL Baso # (Auto) 0.0 (0.0-0.1) K/uL Nucleated RBC % 0.0 /100WBC Nucleated RBCs # 0 K/uL Sodium 142 (136-145) mmol/L Potassium 4.1 (3.5-5.1) mmol/L Chloride 105 (98-107) mmol/L Carbon Dioxide 29.9 (21.0-32.0) mmol/L BUN 12 (7.0-18.0) mg/dL Creatinine 1.0 (0.6-1.0) mg/dL Est Cr Clr Drug Dosing 43.27 mL/min Estimated GFR (MDRD) 54.3 ml/min Glucose 104 (74-106) mg/dL Calcium 9.6 (8.5-10.1) mg/dL Total Bilirubin 0.8 (0.2-1.0) mg/dL AST 28 (15-37) IU/L ALT 34 (14-63) IU/L Alkaline Phosphatase 84 (46-116) U/L B-Natriuretic Peptide 20 (<100) PG/ML Total Protein 7.7 (6.4-8.2) g/dL Albumin 4.0 (3.4-5.0) g/dL Globulin 3.7 (2.6-4.0) g/dL Albumin/Globulin Ratio 1.1 (0.9-1.6) Meds: Medications Generic Name Dose Route Start Last Admin Trade Name Freq PRN Reason Stop Dose Admin Magnesium Sulfate 2 gm/ Premix 50 mls @ 25 mls/hr 09/25/18 18:31 09/25/18 18: 39 IV 09/25/18 20:30 25 mls/hr ONETIME ONE Administration Sodium Chloride 10 ml 09/25/18 17:48 09/25/18 18:04 Saline Flush FLUSH 10 ml ASDIRECTED PRN Administration Keep Vein Open Sodium Chloride 2.5 ml 09/25/18 17:48 09/25/18 18:04 Saline Flush FLUSH 2.5 ml ASDIRECTED PRN Administration Keep Vein Open Discontinued Medications Generic Name Dose Route Start Last Admin Trade Name Freq PRN Reason Stop Dose Admin Albuterol/Ipratropium 3 ml 09/25/18 17:48 09/25/18 18:01 Duoneb 3.0-0.5 Mg/3 Ml NEB 09/25/18 17:49 3 ml ONETIME ONE Administration Albuterol/Ipratropium 3 ml 09/25/18 18:31 09/25/18 18:39 Duoneb 3.0-0.5 Mg/3 Ml NEB 09/25/18 18:32 3 ml ONETIME ONE Administration Sodium Chloride 1,000 mls @ 999 mls/hr 09/25/18 17:48 09/25/18 18:05 Normal Saline IV 09/25/18 18:48 999 mls/hr .Bolus ONE Administration Methylprednisolone Sodium Succinate 125 mg 09/25/18 17:48 09/25/18 18:04 Solu-Medrol IVPUSH 09/25/18 17:49 125 mg ONETIME ONE Administration Departure - Departure Time of Disposition: 19:00 Disposition: Refer to Observation Condition: Good Clinical Impression: Asthma exacerbation Qualifiers: Asthma severity: moderate Asthma persistence: persistent Qualified Code(s): J45.41 - Moderate persistent asthma with (acute) exacerbation - Discharge Information *PRESCRIPTION DRUG MONITORING PROGRAM REVIEWED*: No *COPY OF PRESCRIPTION DRUG MONITORING REPORT IN PATIENT ANA: No Referrals: Wade Cunningham MD [Primary Care Provider] - Forms: ED Department Discharge - My Orders Last 24 Hours: My Active Orders 09/25/18 17:48 Oxygen Therapy, ED [RC] ASDIRECTED RT Aerosol Therapy [RC] ASDIRECTED Sodium Chloride 0.9% [Saline Flush] 10 ml FLUSH ASDIRECTED PRN Sodium Chloride 0.9% [Saline Flush] 2.5 ml FLUSH ASDIRECTED PRN 09/25/18 17:49 Saline Lock Insert [OM.PC] Stat 09/25/18 17:58 Chest 1V Frontal [CR] Stat 09/25/18 18:31 Magnesium Sulfate/Water [Magnesium Sulfate 2 GM in Water 50 ML] 2 gm Premix Bag 1 bag IV ONETIME 09/25/18 18:32 RT Aerosol Therapy [RC] ASDIRECTED - Assessment/Plan Last 24 Hours: My Active Orders 09/25/18 17:48 Oxygen Therapy, ED [RC] ASDIRECTED RT Aerosol Therapy [RC] ASDIRECTED Sodium Chloride 0.9% [Saline Flush] 10 ml FLUSH ASDIRECTED PRN Sodium Chloride 0.9% [Saline Flush] 2.5 ml FLUSH ASDIRECTED PRN 09/25/18 17:49 Saline Lock Insert [OM.PC] Stat 09/25/18 17:58 Chest 1V Frontal [CR] Stat 09/25/18 18:31 Magnesium Sulfate/Water [Magnesium Sulfate 2 GM in Water 50 ML] 2 gm Premix Bag 1 bag IV ONETIME 09/25/18 18:32 RT Aerosol Therapy [RC] ASDIRECTED
[2018-09-25] MEDS ORDERED: Magnesium Sulfate/Water 2 GM in Premix Bag 1 BAG IV ONE (18:31)
--- NOTE | 2018-09-25 22:29 | PCM.HP ---
H&P History of Present Illness - General Date of Service: 09/25/18 Admit Problem/Dx: Admission Diagnosis/Problem Admission Diagnosis/Problem Asthma attack - History of Present Illness Initial Comments - Free Text/Narative: 73 yo female who presents with sudden shortness of breath and wheezing. She reported that she got so short of breath she almost passed out. She reports a history of asthma and uses her inhalers or neublizer about three times a day. She did have bronchitis last May and again last month where she was treated with steroids and antiobiotics. She denies any fevers, chest pain or purulent cough. She was treated with duoneb and solumedrol in the ED with improvement in her symptoms. - Related Data Allergies/Adverse Reactions: Allergies Allergy/AdvReac Type Severity Reaction Status Date / Time No Known Allergies Allergy Verified 09/25/18 17:49 Home Medications: Home Meds Albuterol [Proair HFA] 1 - 2 inh INH Q4H PRN 04/04/15 [History] Losartan Potassium 12.5 mg PO BRK 04/04/15 [History] Ca Citrate/Mgox/Vit D3/B6/Min [Calcium Citrate Plus Tablet] 1 tab PO DAILY 06/05 [History] Multivitamin [Multi-Day Vitamins] 1 tab PO DAILY 06/05/16 [History] Cholecalciferol (Vitamin D3) [Vitamin D3] 5,000 units PO Q2D 02/11/17 [History] Fluticasone/Salmeterol [Advair 250-50] 1 puff INH BID #1 diskus 09/26/18 [Rx] predniSONE 40 mg PO WITHBREAKFAST #8 tablet 09/26/18 [Rx] Past Medical History HEENT History: Reports: Cataract, Hard of Hearing, Other (See Below) Other HEENT History: loss of hearing left ear, wears glasses Cardiovascular History: Reports: Hypertension, Other (See Below) Other Cardiovascular History: states "had blood clot to stomach in 1973 which caused a miscarriage" Respiratory History: Reports: Asthma Other Respiratory History: mild asthma Gastrointestinal History: Reports: Cholelithiasis, Diverticulosis, Other (See Below) Other Gastrointestinal History: occasional reflux Genitourinary History: Reports: 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: Musculoskeletal History: Reports: Arthritis, Back Pain, Chronic, Osteoporosis Neurological History: Reports: None Other Neuro History: Degenerative disc disease low back Psychiatric History: Reports: None Endocrine/Metabolic History: Reports: Obesity/BMI 30+ Hematologic History: Reports: None Immunologic History: Reports: None Oncologic (Cancer) History: Reports: None Dermatologic History: Reports: None - Infectious Disease History Infectious Disease History: Reports: Chicken Pox, Measles, Mumps - Past Surgical History Musculoskeletal Surgical History: Reports: Arthroscopic Knee, Carpal Tunnel, Knee Replacement, Shoulder Surgery, Other (See Below) Other Musculoskeletal Surgeries/Procedures:: trigger finger release on both hands, Arthroscopy right knee post TKA, right RTCR Social & Family History - Family History Cardiac: Reports: Heart Failure Endocrine/Metabolic: Reports: Diabetes, type II Oncologic: Reports: Lung - Tobacco Use Smoking Status *Q: Never Smoker - Caffeine Use Caffeine Use: Reports: Coffee, Soda - Recreational Drug Use Recreational Drug Use: No H&P Review of Systems - Review of Systems: Review Of Systems: ROS reveals no pertinent complaints other than HPI. Exam - Exam Exam: See Below - Vital Signs Vital Signs: Last Vital Signs Temp 36.6 C 09/25/18 20:28 Pulse 91 09/25/18 20:28 Resp 18 09/25/18 20:28 BP 136/72 09/25/18 20:28 Pulse Ox 95 09/25/18 20:28 Weight: 82.781 kg - Exam General: Alert, Oriented HEENT: Mucosa Moist & [place] Lungs: Clear to Auscultation, Normal Respiratory Effort Cardiovascular: Regular Rate, Regular Rhythm GI/Abdominal Exam: Soft, Non-Tender Extremities: Non-Tender, No Pedal Edema Skin: Warm, Dry, Intact - Patient Data Lab Results Last 24 hrs: Laboratory Results - last 24 hr 09/25/18 09/25/18 09/25/18 Range/Units 17:58 17:58 17:58 WBC 9.54 (4.0-11.0) K/uL RBC 4.51 (4.30-5.90) M/uL Hgb 14.5 (12.0-16.0) g/dL Hct 43.8 (36.0-46.0) % MCV 97.1 (80.0-98.0) fL MCH 32.2 H (27.0-32.0) pg MCHC 33.1 (31.0-37.0) g/dL RDW Std Deviation 45.9 (28.0-62.0) fl RDW Coeff of Farshad 13 (11.0-15.0) % Plt Count 263 (150-400) K/uL MPV 9.70 (7.40-12.00) fL Neut % (Auto) 48.3 (48.0-80.0) % Lymph % (Auto) 34.6 (16.0-40.0) % [place] % (Auto) 8.4 (0.0-15.0) % Eos % (Auto) 8.4 H (0.0-7.0) % Baso % (Auto) 0.3 (0.0-1.5) % Neut # (Auto) 4.6 (1.4-5.7) K/uL Lymph # (Auto) 3.3 H (0.6-2.4) K/uL [place] # (Auto) 0.8 (0.0-0.8) K/uL Eos # (Auto) 0.8 H (0.0-0.7) K/uL Baso # (Auto) 0.0 (0.0-0.1) K/uL Nucleated RBC % 0.0 /100WBC Nucleated RBCs # 0 K/uL Sodium 142 (136-145) mmol/L Potassium 4.1 (3.5-5.1) mmol/L Chloride 105 (98-107) mmol/L Carbon Dioxide 29.9 (21.0-32.0) mmol/L BUN 12 (7.0-18.0) mg/dL Creatinine 1.0 (0.6-1.0) mg/dL Est Cr Clr Drug Dosing 43.27 mL/min Estimated GFR (MDRD) 54.3 ml/min Glucose 104 (74-106) mg/dL Calcium 9.6 (8.5-10.1) mg/dL Total Bilirubin 0.8 (0.2-1.0) mg/dL AST 28 (15-37) IU/L ALT 34 (14-63) IU/L Alkaline Phosphatase 84 (46-116) U/L B-Natriuretic Peptide 20 (<100) PG/ML Total Protein 7.7 (6.4-8.2) g/dL Albumin 4.0 (3.4-5.0) g/dL Globulin 3.7 (2.6-4.0) g/dL Albumin/Globulin Ratio 1.1 (0.9-1.6) Result Diagrams: 09/25/18 17:58 09/25/18 17:58 Problem List Initiated/Reviewed/Updated: Yes Orders Last 24hrs: Active Orders 24 hr Category Date Time Status Patient Status [ADT] Stat ADT 09/25/18 18:58 Active Oxygen Therapy [RC] PRN Care 09/25/18 22:23 Ordered Oxygen Therapy, ED [RC] ASDIRECTED Care 09/25/18 17:48 Active RT Aerosol Therapy [RC] ASDIRECTED Care 09/25/18 17:48 Active RT Aerosol Therapy [RC] ASDIRECTED Care 09/25/18 18:32 Active RT Aerosol Therapy [RC] ASDIRECTED Care 09/25/18 22:24 Ordered Up ad Leatha [RC] ASDIRECTED Care 09/25/18 22:23 Ordered VTE/DVT Education [RC] PER UNIT ROUTINE Care 09/25/18 22:23 Ordered Vital Signs [RC] Q4H Care 09/25/18 22:23 Ordered Regular Diet [DIET] Diet 09/25/18 Breakfast Ordered Chest 1V Frontal [CR] Stat Exams 09/25/18 17:58 Taken Albuterol/Ipratropium [DuoNeb 3.0-0.5 MG/3 ML] Med 09/26/18 00:00 Ordered 3 ml NEB Q6HRRT Losartan Potassium Med 09/26/18 08:00 Ordered 12.5 mg PO BRK Sodium Chloride 0.9% [Saline Flush] Med 09/25/18 17:48 Active 10 ml FLUSH ASDIRECTED PRN Sodium Chloride 0.9% [Saline Flush] Med 09/25/18 17:48 Active 2.5 ml FLUSH ASDIRECTED PRN predniSONE Med 09/26/18 08:00 Ordered 40 mg PO WITHBREAKFAST Saline Lock Insert [OM.PC] Stat Oth 09/25/18 17:49 Ordered Sequential Compression Device [OM.PC] Per Unit Routine Oth 09/25/18 22:24 Ordered Resuscitation Status Routine Resus Stat 09/25/18 22:23 Ordered Medication Orders Albuterol/Ipratropium (Duoneb 3.0-0.5 Mg/3 Ml) 3 ml NEB Q6HRRT SRINIVAS Non-Formulary Medication (Losartan Potassium) 12.5 mg PO BRK SRINIVAS Prednisone (Prednisone) 40 mg PO WITHBREAKFAST SRINIVAS Sodium Chloride (Saline Flush) 10 ml FLUSH ASDIRECTED PRN PRN Reason: Keep Vein Open Last Admin: 09/25/18 18:04 Dose: 10 ml Sodium Chloride (Saline Flush) 2.5 ml FLUSH ASDIRECTED PRN PRN Reason: Keep Vein Open Last Admin: 09/25/18 18:04 Dose: 2.5 ml Assessment/Plan Comment:: 73 yo female admitted with asthma exacerbation. She was treated with one dose of solumedrol and duonebs with significant improvement in symptoms. She was monitored overnight and today is requesting discharge home. She was discharge home with prednisone 40mg daily for four more days and advair and albuterol inhaler. She is to follow up with Dr. Joyce.
[2018-09-26] MEDS: Albuterol/Ipratropium 3.0-0.5 MG/3 ML Neb Soln NEB SCH ×3 (00:08→11:07)
[2018-09-26] MEDS ORDERED: predniSONE 20 MG Tab PO SCH (08:00)
[2018-09-26] MEDS ORDERED: Losartan 50 MG Tab PO SCH (09:00)
[2018-09-26 11:43] VITALS: BP 148/67
--- NOTE | 2018-09-26 20:30 | CR ---
EXAM DATE: 09/25/18 PATIENT'S AGE: 73 Patient: BABITA COSME Facility: [place], [place] Site . Site : 1945 Study: XRay Chest [id number] 6:17:15 PM Ordering Physician: Killian Gale Final Report: INDICATION: sob TECHNIQUE: Chest 1 view. COMPARISON: 09/27/10 FINDINGS: Cardiovascular and mediastinum: Heart size and vasculature are normal in caliber and appearance. Mediastinum is within normal limits. Lungs and pleural space: Lungs are clear. No sign of infiltrate or mass. No sign of pleural effusion. No pneumothorax. Bones and soft tissues: No significant findings. IMPRESSION: Unremarkable chest. Dictated by: Obey Chino MD @ 09/25/2018 18:28:19 (Electronic Signature) Report Signed by Proxy. [facility]
== END 2018-09-26 11:45 | disposition home or self-care (01) ==
LOC: MW.ED 17:46 → MW.MS 18:58
PROVIDERS: ADMIT Internal Medicine; ATTEND Internal Medicine
DX: J45.901 Unspecified asthma with (acute) exacerbation (principal); I10 Essential (primary) hypertension; E66.9 Obesity, unspecified; Z68.30 Body mass index [BMI] 30.0-30.9, adult; H91.92 Unspecified hearing loss, left ear; Z79.51 Long term (current) use of inhaled steroids; Z79.899 Other long term (current) drug therapy
CPT/HCPCS: 36415; 71045; 80053; 83880; 85025; 93005; 94640; 96361; 96365; 96375; 99285; A9270; G0378; J2930; J3475; J7040; 99284; J7620-GY

== ENCOUNTER 2018-10-19 10:11 | Emergency (ER) | payer MEDICARE, BC ==
--- NOTE | 2018-10-19 10:59 | CR ---
EXAMINATION: Two-view chest (PA and Lateral views). HISTORY: Shortness of breath. FINDINGS: The trachea is midline. The cardiomediastinal silhouette is within normal limits. No pulmonary infiltrates, effusions or pneumothorax. The aorta is tortuous. Osseous structures appear unremarkable. IMPRESSION: No acute cardiopulmonary process.
--- NOTE | 2018-10-19 10:59 | EDM.PDOC ---
ED HPI GENERAL MEDICAL PROBLEM - General Chief Complaint: Respiratory Problem Stated Complaint: SOB Time Seen by Provider: 10/19/18 10:21 Source of Information: Reports: Patient History Limitations: Reports: No Limitations - History of Present Illness INITIAL COMMENTS - FREE TEXT/NARRATIVE: HISTORY AND PHYSICAL: History of present illness: Patient is a 73-year-old female who presents to the emergency room with concerns of shortness of breath. She was admitted to our hospital on 09/25/18 for an asthma exacerbation. She did follow up with her primary care provider Dr. Cunningham on 09/28/18 and was prescribed Advair Diskus inhaler. She states this medication cost approximately $380 and she was unable to afford the medication as prescribed. She has been using Singulair and her rescue inhaler to help manage her symptoms has not been improving her shortness of breath. She denies any fever, chills, chest pain or cough. Denies any abdominal pain, nausea , vomiting, diarrhea or constipation. She has been able to eat and drink appropriately. Review of systems: As per history of present illness and below otherwise all systems reviewed and negative. Past medical history: As per history of present illness and as reviewed below otherwise noncontributory. Surgical history: As per history of present illness and as reviewed below otherwise noncontributory. Social history: See social history for further information Family history: As per history of present illness and as reviewed below otherwise noncontributory. Physical exam: General: Well-developed and well-nourished 73-year-old female. Alert and oriented. Nontoxic appearing and in no acute distress. HEENT: Atraumatic, normocephalic, pupils equal and reactive bilaterally, negative for conjunctival pallor or scleral icterus, mucous membranes moist, TMs normal bilaterally, throat clear, neck supple, nontender, trachea midline. No drooling or trismus noted. No meningeal signs. No hot potato voice noted. Lungs: Slightly diminished throughout otherwise clear to auscultation, breath sounds equal bilaterally, chest nontender. Heart: S1S2, regular rate and rhythm without overt murmur Abdomen: Soft, nondistended, nontender. Negative for masses or hepatosplenomegaly. Negative for costovertebral tenderness. Pelvis: Stable nontender. Genitourinary: Deferred. Rectal: Deferred. Skin: Intact, warm, dry. No lesions or rashes noted. Extremities: Atraumatic, negative for cords or calf pain. Neurovascular unremarkable. Neuro: Awake, alert, oriented. Cranial nerves II through XII unremarkable. Cerebellum unremarkable. Motor and sensory unremarkable throughout. Exam nonfocal. Notes: Chest x-ray shows no acute findings. Vital signs are stable, oxygen saturation 94-96% on room air. I did talk with the patient's pharmacy about the medication she was prescribed along with cough. The problem is with the patient's deductible with her insurance company, requiring her to pay up to $400 before they start covering the medication. He states that after this deductible is met the medication is covered through her insurance. This goes along with any other alternative LABA inhaler. This information was shared with the patient. Prior to discharge vital signs were reviewed by me. Supportive care measures were reviewed and discussed. She voices understanding and is agreeable to plan of care. She'll follow up with her primary care provider in the next 1-2 days. Denies any further questions or concerns at this time Diagnostics: Chest x-ray Therapeutics: [facility]omen[facility] IM Prescription: Medrol Dosepak Impression: Asthma exacerbation Plan: 1. Please continue to take your medication as prescribed. 2. Follow-up with Dr. Cunningham in the next 1-2 days. Return to the ED as needed and as discussed. Definitive disposition and diagnosis as appropriate pending reevaluation and review of above. Duration: Chronic - Related Data Allergies Allergy/AdvReac Type Severity Reaction Status Date / Time No Known Allergies Allergy Verified 10/19/18 10:23 Home Meds: Home Meds Losartan Potassium 12.5 mg PO BRK 04/04/15 [History] Ca Citrate/Mgox/Vit D3/B6/Min [Calcium Citrate Plus Tablet] 1 tab PO DAILY 06/05 [History] Multivitamin [Multi-Day Vitamins] 1 tab PO DAILY 06/05/16 [History] Cholecalciferol (Vitamin D3) [Vitamin D3] 5,000 units PO Q2D 02/11/17 [History] Albuterol [Proventil Neb Soln] 1 dose NEB ASDIRECTED PRN 10/19/18 [History] Albuterol [Ventolin HFA] 2 puff INH ASDIRECTED PRN 10/19/18 [History] Fexofenadine [Lennie] 1 tab PO DAILY 10/19/18 [History] Montelukast Sodium 10 mg PO DAILY 10/19/18 [History] Past Medical History HEENT History: Reports: Cataract, Hard of Hearing, Other (See Below) Other HEENT History: loss of hearing left ear, wears glasses Cardiovascular History: Reports: Hypertension, Other (See Below) Other Cardiovascular History: states "had blood clot to stomach in 1973 which caused a miscarriage" Respiratory History: Reports: Asthma Other Respiratory History: mild asthma Gastrointestinal History: Reports: Cholelithiasis, Diverticulosis, Other (See Below) Other Gastrointestinal History: occasional reflux Genitourinary History: Reports: None 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: Musculoskeletal History: Reports: Arthritis, Back Pain, Chronic, Osteoporosis Neurological History: Reports: None Other Neuro History: Degenerative disc disease low back Psychiatric History: Reports: None Endocrine/Metabolic History: Reports: Obesity/BMI 30+ Hematologic History: Reports: None Immunologic History: Reports: None Oncologic (Cancer) History: Reports: None Dermatologic History: Reports: None - Infectious Disease History Infectious Disease History: Reports: Chicken Pox, Measles, Mumps, Shingles - Past Surgical History GI Surgical History: Reports: Cholecystectomy Musculoskeletal Surgical History: Reports: Arthroscopic Knee, Carpal Tunnel, Knee Replacement, Shoulder Surgery, Other (See Below) Other Musculoskeletal Surgeries/Procedures:: trigger finger release on both hands, Arthroscopy right knee post TKA, right RTCR Social & Family History - Family History Family Medical History: Noncontributory HEENT: Reports: None Cardiac: Reports: Heart Failure Respiratory: Reports: None GI: Reports: None : Reports: None OBGYN: Reports: None Musculoskeletal: Reports: None Neurological: Reports: None Psychiatric: Reports: None Endocrine/Metabolic: Reports: Diabetes, type II Hematologic: Reports: None Immunologic: Reports: None Dermatologic: Reports: None Oncologic: Reports: Lung - Tobacco Use Smoking Status *Q: Never Smoker - Caffeine Use Caffeine Use: Reports: Coffee - Recreational Drug Use Recreational Drug Use: No ED ROS GENERAL - Review of Systems Review Of Systems: ROS reveals no pertinent complaints other than HPI. ED EXAM, GENERAL - Physical Exam Exam: See Below (See dictation) Course - Vital Signs Last Recorded V/S: Last Vital Signs Temp 97.6 F 10/19/18 10:21 Pulse 89 10/19/18 12:07 Resp 16 10/19/18 12:07 BP 136/73 10/19/18 12:07 Pulse Ox 94 L 10/19/18 12:07 - Orders/Labs/Meds Orders: Active Orders 24 hr Category Date Time Status RT Aerosol Therapy [RC] ASDIRECTED Care 10/19/18 11:10 Active Meds: Medications Discontinued Medications Generic Name Dose Route Start Last Admin Trade Name Freq PRN Reason Stop Dose Admin Albuterol/Ipratropium 3 ml 10/19/18 11:09 10/19/18 11:34 Duoneb 3.0-0.5 Mg/3 Ml NEB 10/19/18 11:10 3 ml ONETIME ONE Administration Methylprednisolone Sodium Succinate 125 mg 10/19/18 11:09 10/19/18 11:45 Solu-Medrol IM 10/19/18 11:10 125 mg ONETIME ONE Administration Departure - Departure Time of Disposition: 15:25 Disposition: Home, Self-Care 01 Clinical Impression: Asthma exacerbation Qualifiers: Asthma severity: mild Asthma persistence: persistent Qualified Code(s): J45.31 - Mild persistent asthma with (acute) exacerbation - Discharge Information Instructions: Asthma, Adult, [id number] Referrals: Wade Cunningham MD [Primary Care Provider] - Forms: ED Department Discharge Additional Instructions: The following information is given to patients seen in the emergency department who are being discharged to home. This information is to outline your options for follow-up care. We provide all patients seen in our emergency department with a follow-up referral. The need for follow-up, as well as the timing and circumstances, are variable depending upon the specifics of your emergency department visit. If you don't have a primary care physician on staff, we will provide you with a referral. We always advise you to contact your personal physician following an emergency department visit to inform them of the circumstance of the visit and for follow-up with them and/or the need for any referrals to a consulting specialist. The emergency department will also refer you to a specialist when appropriate. This referral assures that you have the opportunity for follow-up care with a specialist. All of these measure are taken in an effort to provide you with optimal care, which includes your follow-up. Under all circumstances we always encourage you to contact your private physician who remains a resource for coordinating your care. When calling for follow-up care, please make the office aware that this follow-up is from your recent emergency room visit. If for any reason you are refused follow-up, please contact the [facility] Emergency Department at and asked to speak to the emergency department charge nurse. [facility] [address] [place] [address] [facility] [address] [place] [id number] 1. Please continue to take your medication as prescribed. 2. Follow-up with Dr. Cunningham in the next 1-2 days. Return to the ED as needed and as discussed. - My Orders Last 24 Hours: My Active Orders 10/19/18 11:10 RT Aerosol Therapy [RC] ASDIRECTED - Assessment/Plan Last 24 Hours: My Active Orders 10/19/18 11:10 RT Aerosol Therapy [RC] ASDIRECTED
[2018-10-19] MEDS ORDERED: Albuterol/Ipratropium 3.0-0.5 MG/3 ML Neb Soln NEB ONE (11:09)
[2018-10-19] MEDS ORDERED: methylPREDNISolone Sodium Succinate 125 MG/2 ML SDV IM ONE (11:09)
[2018-10-19 12:08] VITALS: BP 136/73
== END 2018-10-19 12:09 | disposition home or self-care (01) ==
LOC: MW.ED 10:11
DX: J45.31 Mild persistent asthma with (acute) exacerbation (principal); I10 Essential (primary) hypertension; E66.9 Obesity, unspecified; Z90.49 Acquired absence of other specified parts of digestive tract
CPT/HCPCS: 71046; 96372; 99284; J2930; J7620-GY

== ENCOUNTER 2019-04-17 08:09 | Inpatient (IN) | payer MEDICARE, OTHER ==
[~2019-04-17 08:09] MED LIST changes: +Acetaminophen 1,000 MG in Premix Bag 1 BAG IV SCH; -Acetaminophen/HYDROcodone 325-5 MG Tab PO PRN; +Famotidine 20 MG/2 ML SDV IVPUSH SCH; +Ketorolac 15 MG/ML SDV IVPUSH SCH; -Lactated Ringers 1,000 ML IV SCH; +Propofol 200 MG/20 ML SDV ONE; +Ropivacaine 49.25 ML, Ketorolac 30 MG, EPINEPHrine 0.5 MG, cloNIDine 80 MCG in Sodium C... INJECT SCH; +Scopolamine 1.5 MG Transdermal Patch TRDERM SCH; +Tranexamic Acid 2,000 MG in Sodium Chloride 0.9% 100 ML IV ONE; +ceFAZolin 1 GM in Premix Bag 1 BAG IV SCH
[2019-04-17] MEDS: Lactated Ringers 1,000 ML IV SCH ×3 (09:10→23:49)
--- NOTE | 2019-04-17 09:25 | PCM.PREANE ---
Preanesthetic Assessment - Anesthesia/Transfusion/Family Hx Anesthesia History: Prior Anesthesia Without Reaction Other Type of Anesthesia Reaction Comment: Denies any known problem in past Family History of Anesthesia Reaction: No Transfusion History: No Prior Transfusion(s) Intubation History: Unknown - Review of Systems General: No Symptoms Pulmonary: No Symptoms Cardiovascular: No Symptoms Gastrointestinal: No Symptoms Neurological: No Symptoms Other: Reports: None - Physical Assessment NPO Status Date: 04/17/19 NPO Status Time: 06:00 O2 Sat by Pulse Oximetry: 94 Respiratory Rate: 20 Vital Signs: Last Vital Signs Temp 36.0 C 04/17/19 08:55 Pulse 62 04/17/19 08:55 Resp 20 04/17/19 08:55 BP 148/93 H 04/17/19 08:55 Pulse Ox 94 L 04/17/19 08:55 Height: 5 ft 3 in Weight: 81.647 kg ASA Class: 2 Mental Status: Alert & Oriented x3 Airway Class: Mallampati = 2 Dentition: Reports: Normal Dentition Thyro-Mental Finger Breadths: 2 Mouth Opening Finger Breadths: 2 ROM/Head Extension: Limited/Partial Lungs: Clear to Auscultation, Normal Respiratory Effort Cardiovascular: Regular Rate, Regular Rhythm - Allergies Allergies/Adverse Reactions: Allergies Allergy/AdvReac Type Severity Reaction Status Date / Time No Known Allergies Allergy Verified 04/13/19 09:17 - Blood Blood Available: No - Anesthesia Plan Pre-Op Medication Ordered: None - Acknowledgements Anesthesia Type Planned: Spinal (general anesthesia back-up plan) Pt an Appropriate Candidate for the Planned Anesthesia: Yes Alternatives and Risks of Anesthesia Discussed w Pt/Guardian: Yes Pt/Guardian Understands and Agrees with Anesthesia Plan: Yes PreAnesthesia Questionnaire HEENT History: Reports: Cataract, Hard of Hearing, Other (See Below) Other HEENT History: loss of hearing left ear, wears glasses Cardiovascular History: Reports: Hypertension, Other (See Below) Other Cardiovascular History: states "had blood clot to stomach in 1973 which caused a miscarriage" Respiratory History: Reports: Asthma Other Respiratory History: mild asthma Gastrointestinal History: Reports: Cholelithiasis, Diverticulosis, Other (See Below) Other Gastrointestinal History: occasional reflux Genitourinary History: Reports: None 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: Musculoskeletal History: Reports: Back Pain, Chronic, Fibromyalgia, Osteoarthritis, Osteoporosis Other Musculoskeletal History: DDD Neurological History: Reports: None Psychiatric History: Reports: None Endocrine/Metabolic History: Reports: Obesity/BMI 30+ Hematologic History: Reports: None Immunologic History: Reports: None Oncologic (Cancer) History: Reports: None Dermatologic History: Reports: None - Infectious Disease History Infectious Disease History: Reports: Chicken Pox, Measles, Mumps, Shingles - Past Surgical History Head Surgeries/Procedures: Reports: None HEENT Surgical History: Reports: Cataract Surgery, Tonsillectomy, Other (See Below) Other HEENT Surgeries/Procedures: Fer cataract extraction with lens implants Cardiovascular Surgical History: Reports: None Respiratory Surgical History: Reports: None GI Surgical History: Reports: Appendectomy, Cholecystectomy Female Surgical History: Reports: Hysterectomy Other Female Surgeries/Procedures: urinary frequency Endocrine Surgical History: Reports: None Neurological Surgical History: Reports: None Musculoskeletal Surgical History: Reports: Arthroscopic Knee, Carpal Tunnel, Knee Replacement, Shoulder Surgery, Other (See Below) Other Musculoskeletal Surgeries/Procedures:: trigger finger release on both hands, knee Arthroscopy, right RTCR, rt and lt TKA Oncologic Surgical History: Reports: None - SUBSTANCE USE Smoking Status *Q: Never Smoker Recreational Drug Use History: No - HOME MEDS Home Medications: Home Meds Losartan Potassium 12.5 mg PO BRK 04/04/15 [History] Ca Citrate/Mgox/Vit D3/B6/Min [Calcium Citrate Plus Tablet] 1 tab PO DAILY 06/05 [History] Multivitamin [Multi-Day Vitamins] 1 tab PO DAILY 06/05/16 [History] Cholecalciferol (Vitamin D3) [Vitamin D3] 5,000 units PO Q2D 02/11/17 [History] Albuterol [Proventil Neb Soln] 1 dose NEB ASDIRECTED PRN 10/19/18 [History] Albuterol [Ventolin HFA] 2 puff INH ASDIRECTED PRN 10/19/18 [History] Fexofenadine [Lennie] 1 tab PO DAILY 10/19/18 [History] Montelukast Sodium 10 mg PO DAILY 10/19/18 [History] Fluticasone/Vilanterol [Breo Ellipta 100-25 MCG Inhalation Kit] 1 inhalation INH DAILY 04/13/19 [History] - CURRENT (IN HOUSE) MEDS Current Meds: Current Medications Famotidine (Pepcid) 40 mg IVPUSH ONARRIVE SRINIVAS Last Admin: 04/17/19 09:20 Dose: 40 mg Acetaminophen 1,000 mg/ Premix 100 mls @ 400 mls/hr IV ONARRIVE SRINIVAS Cefazolin Sodium/Dextrose 1 gm (/ Premix) 50 mls @ 100 mls/hr IV ONCALL SRINIVAS Ropivacaine 49.25 ml/Ketorolac Tromethamine 30 mg/Epinephrine HCl 0.5 mg/ Clonidine HCl 80 mcg/ Sodium Chloride 75 mls @ 50 mls/sec INJECT ASDIRECTED [facility] Lactated Ringer's (Ringers, Lactated) 1,000 mls @ 100 mls/hr IV ASDIRECTED [facility] Last Admin: 04/17/19 09:10 Dose: 100 mls/hr Ketorolac Tromethamine (Toradol) 15 mg IVPUSH ONARRIVE [facility] Last Admin: 04/17/19 09:18 Dose: 15 mg Scopolamine (Transderm-Scop) 1.5 mg TRDERM ONARRIVE [facility] Last Admin: 04/17/19 09:14 Dose: 1.5 mg Discontinued Medications Tranexamic Acid 2,000 mg/ (Sodium Chloride) 120 mls @ 600 mls/hr IV ASDIRECTED ONE Stop: 04/17/19 08:11 Propofol (Diprivan 20 Ml) Confirm Administered Dose 600 mg .ROUTE .STK-MED ONE Stop: 04/17/19 07:22 Tranexamic Acid (Cyklokapron) Confirm Administered Dose 2,000 mg .ROUTE .STK- MED ONE Stop: 04/17/19 09:03
[2019-04-17] MEDS ORDERED: Sodium Chloride 0.9% 20 ML ONE (09:26)
[2019-04-17] MEDS ORDERED: fentaNYL 100 MCG/2 ML SDV ONE (09:27)
[2019-04-17] MEDS ORDERED: Midazolam 1 MG/ML 2 ML SDV ONE ×3 (09:27→10:02)
--- NOTE | 2019-04-17 10:25 | PCM.OPNOTE ---
- General Post-Op/Procedure Note Date of Surgery/Procedure: 04/17/19 Operative Procedure(s): Revision L TKA Post-Op Diagnosis: painful left TKA Anesthesia Technique: Moderate Sedation, Spinal Primary Surgeon: Shanice Sigala Brewing Director: Laurence Layton Brewing Director: Audelia Blackwell in mLs: 20 Condition: Good Free Text/Narrative:: tt=14 min #[id number]
[2019-04-17] MEDS ORDERED: Phenylephrine 1% 10 MG/ML SDV ONE (10:58)
[2019-04-17] MEDS ORDERED: diphenhydrAMINE 25 MG Cap PO PRN (11:11)
[2019-04-17] MEDS ORDERED: Sodium Chloride 0.9% 10 ML Syringe FLUSH PRN (11:11)
[2019-04-17] MEDS ORDERED: Aluminum Hydroxide/Magnesium Hydroxide/Simethicone Susp 30 ML Cup PO PRN (11:11)
[2019-04-17] MEDS ORDERED: Docusate Sodium 100 MG Cap PO PRN (11:11)
[2019-04-17] MEDS ORDERED: Sodium Chloride 0.9% 2.5 ML Syringe FLUSH PRN (11:11)
[2019-04-17] MEDS ORDERED: Ondansetron 4 MG/2 ML SDV IVPUSH PRN (11:11)
[2019-04-17] MEDS ORDERED: Bisacodyl 10 MG Supp RECTAL PRN (11:11)
[2019-04-17] MEDS ORDERED: Morphine 2 MG/ML Syringe IVPUSH PRN (11:22)
[2019-04-17] MEDS ORDERED: Albuterol/Ipratropium 3.0-0.5 MG/3 ML Neb Soln NEB PRN (11:22)
[2019-04-17] MEDS ORDERED: Albuterol 8 GM Inhaler INH PRN (11:23)
[2019-04-17] MEDS ORDERED: ALBUTEROL 1.25 MG/3 ML NEB PRN (11:30)
[2019-04-17 12:29] LABS: BLOOD UREA NITROGEN,BUN 20 mg/dL (7.0-18.0); CHLORIDE,CL 110 mmol/L (98-107); GLUCOSE RANDOM 108 mg/dL (74-106); POTASSIUM,K 4.4 mmol/L (3.5-5.1); SODIUM,NA 142 mmol/L (136-145)
--- NOTE | 2019-04-17 12:38 | PCM.HP ---
H&P History of Present Illness - General Date of Service: 04/17/19 Admit Problem/Dx: s/p REVISION LEFT TOTAL KNEE ARTHROPLASTY Source of Information: Patient, Old Records History Limitations: Reports: No Limitations - History of Present Illness Initial Comments - Free Text/Narative: This 73 year old female with pmh of obesity, asthma and HTN presented today with Dr Sigala for revision of L TKA. Hospitalist service consulted for medical management of asthma and HTN. Michelle recently arrived to floor from PACU alert and oriented and in no distress. She reports feeling well. Reports asthma has been under great control , only using short acting inhaler 3 times since November. Reports being very diligent on Breo every morning since she was admitted in September for asthma exacerbation. She denies chest pain or SOB and no wheezing currently. She reports prior to surgery she was feeling at baseline with no concerns besides knee pain. PCP, Dr Cunningham. - Related Data Allergies/Adverse Reactions: Allergies Allergy/AdvReac Type Severity Reaction Status Date / Time No Known Allergies Allergy Verified 04/13/19 09:17 Home Medications: Home Meds Losartan Potassium 12.5 mg PO BRK 04/04/15 [History] Ca Citrate/Mgox/Vit D3/B6/Min [Calcium Citrate Plus Tablet] 1 tab PO DAILY 06/05 [History] Multivitamin [Multi-Day Vitamins] 1 tab PO DAILY 06/05/16 [History] Cholecalciferol (Vitamin D3) [Vitamin D3] 5,000 units PO Q2D 02/11/17 [History] Albuterol [Ventolin HFA] 2 puff INH ASDIRECTED PRN 10/19/18 [History] Fexofenadine [Lennie] 30 mg PO DAILY 10/19/18 [History] Montelukast Sodium 10 mg PO DAILY 10/19/18 [History] Fluticasone/Vilanterol [Breo Ellipta 100-25 MCG Inhalation Kit] 1 inhalation INH DAILY 04/13/19 [History] Acetaminophen/oxyCODONE [Percocet 325-5 MG] 1 - 2 tab PO Q4H PRN #60 tablet 01/29 [Rx] Aspirin 325 mg PO BID #60 tablet 04/17/19 [Rx] Celecoxib [CeleBREX] 200 mg PO DAILY #30 cap 04/17/19 [Rx] Docusate Sodium [Colace] 100 mg PO BID PRN #60 cap 04/17/19 [Rx] Polyethylene Glycol 3350 [MiraLAX] 17 gm PO DAILY #600 gram 04/17/19 [Rx] Past Medical History HEENT History: Reports: Cataract, Hard of Hearing, Other (See Below) Other HEENT History: loss of hearing left ear, wears glasses Cardiovascular History: Reports: Hypertension, Other (See Below) Other Cardiovascular History: states "had blood clot to stomach in 1974 which caused a miscarriage" Respiratory History: Reports: Asthma Gastrointestinal History: Reports: Cholelithiasis, Diverticulosis, GERD ( occasionally) Genitourinary History: Reports: None [employer] History: Reports: Musculoskeletal History: Reports: Back Pain, Chronic, Fibromyalgia, Osteoarthritis, Osteoporosis Other Musculoskeletal History: DDD Neurological History: Reports: None. Denies: CVA, TIA Psychiatric History: Reports: None Endocrine/Metabolic History: Reports: Obesity/BMI 30+. Denies: Diabetes, Type II, Hypothyroidism Hematologic History: Reports: None Immunologic History: Reports: None Oncologic (Cancer) History: Reports: None Dermatologic History: Reports: None - Infectious Disease History Infectious Disease History: Reports: Chicken Pox, Measles, Mumps, Shingles - Past Surgical History Head Surgeries/Procedures: Reports: None HEENT Surgical History: Reports: Cataract Surgery, Tonsillectomy, Other (See Below) Other HEENT Surgeries/Procedures: Fer cataract extraction with lens implants Cardiovascular Surgical History: Reports: None Respiratory Surgical History: Reports: None GI Surgical History: Reports: Appendectomy, Cholecystectomy Female Surgical History: Reports: Hysterectomy Other Female Surgeries/Procedures: urinary frequency Endocrine Surgical History: Reports: None Neurological Surgical History: Reports: None Musculoskeletal Surgical History: Reports: Arthroscopic Knee, Carpal Tunnel, Knee Replacement, Shoulder Surgery, Other (See Below) Other Musculoskeletal Surgeries/Procedures:: trigger finger release on both hands, knee Arthroscopy, right RTCR, rt and lt TKA Oncologic Surgical History: Reports: None Social & Family History - Family History Family Medical History: Noncontributory HEENT: Reports: None Cardiac: Reports: Heart Failure Respiratory: Reports: None GI: Reports: None : Reports: None OBGYN: Reports: None Musculoskeletal: Reports: None Neurological: Reports: None Psychiatric: Reports: None Endocrine/Metabolic: Reports: Diabetes, type II Hematologic: Reports: None Immunologic: Reports: None Dermatologic: Reports: None Oncologic: Reports: Lung - Tobacco Use Smoking Status *Q: Never Smoker - Caffeine Use Caffeine Use: Reports: Coffee - Recreational Drug Use Recreational Drug Use: No Drug Use in Last 12 Months: No - Living Situation & Occupation Living situation: Reports: H&P Review of Systems - Review of Systems: Review Of Systems: See Below General: Reports: No Symptoms. Denies: Fever, Chills, Malaise HEENT: Reports: Headaches (mild headache after surgery. No neck pain). Denies: Sinus Congestion, Vertigo, Visual Changes Pulmonary: Reports: No Symptoms. Denies: Shortness of Breath, Wheezing, Cough Cardiovascular: Reports: No Symptoms. Denies: Chest Pain, Edema Gastrointestinal: Reports: No Symptoms. Denies: Abdominal Pain, Nausea, Vomiting Genitourinary: Reports: No Symptoms Musculoskeletal: Reports: No Symptoms. Denies: Joint Pain Skin: Reports: No Symptoms Neurological: Reports: No Symptoms Exam - Exam Exam: See Below - Vital Signs Vital Signs: Last Vital Signs Temp 97.9 F 04/17/19 11:34 Pulse 60 04/17/19 12:10 Resp 16 04/17/19 12:10 BP 112/58 L 04/17/19 12:10 Pulse Ox 98 04/17/19 12:10 Weight: 81.647 kg - Exam Quality Assessment: Supplemental Oxygen, Urinary Catheter, DVT Prophylaxis General: Alert, Oriented, Cooperative HEENT: Conjunctiva Clear, Mucosa Moist & [place], Pupils Equal Lungs: Clear to Auscultation, Normal Respiratory Effort Cardiovascular: Regular Rate, Regular Rhythm, Normal S1, Normal S2. No: Systolic Murmur GI/Abdominal Exam: Normal Bowel Sounds, Soft, Non-Tender, No Distention Extremities: Normal Inspection, Normal Range of Motion, Non-Tender, No Pedal Edema Skin: Incision (L knee dressing C/D/I with polar ice intact.) Neuro Extensive - Mental Status: Alert, Oriented x3 Neuro Extensive - Motor, Sensory, Reflexes: CN II-XII Intact Psychiatric: Alert, Normal Affect, Normal Mood - Patient Data Lab Results Last 24 hrs: Laboratory Results - last 24 hr 04/17/19 04/17/19 Range/Units 09:16 11:41 Sodium 142 (136-145) mmol/L Potassium 4.4 (3.5-5.1) mmol/L Chloride 110 H (98-107) mmol/L Carbon Dioxide 26.0 (21.0-32.0) mmol/L BUN 20 H (7.0-18.0) mg/dL Creatinine 0.9 (0.6-1.0) mg/dL Est Cr Clr Drug Dosing 46.05 mL/min Estimated GFR (MDRD) > 60.0 ml/min Glucose 108 H (74-106) mg/dL Calcium 8.2 L (8.5-10.1) mg/dL Magnesium 1.8 (1.8-2.4) mg/dL Blood Type O POSITIVE Antibody Screen NEGATIVE Result Diagrams: 04/17/19 11:41 - Problem List (1) S/P revision of total knee SNOMED Code(s): 2912722980109, 75503188, 6753639728112 ICD Code: Z96.659 - PRESENCE OF UNSPECIFIED ARTIFICIAL KNEE JOINT Status: Acute Current Visit: Yes Qualifiers: Laterality: left Qualified Code(s): Z96.652 - Presence of left artificial knee joint (2) Asthma SNOMED Code(s): 853567944 ICD Code: J45.909 - UNSPECIFIED ASTHMA, UNCOMPLICATED Status: Chronic Current Visit: Yes Qualifiers: Asthma severity: mild Asthma persistence: intermittent Asthma complication type: uncomplicated Qualified Code(s): J45.20 - Mild intermittent asthma, uncomplicated (3) HTN (hypertension) SNOMED Code(s): 52875705 ICD Code: I10 - ESSENTIAL (PRIMARY) HYPERTENSION Status: Chronic Current Visit: Yes Qualifiers: Hypertension type: essential hypertension Qualified Code(s): I10 - Essential (primary) hypertension (4) Obesity SNOMED Code(s): 343553574, 507354257 ICD Code: E66.9 - OBESITY, UNSPECIFIED Status: Chronic Current Visit: Yes Problem List Initiated/Reviewed/Updated: Yes Orders Last 24hrs: Active Orders 24 hr Category Date Time Status Patient Status [ADT] Routine ADT 04/17/19 06:00 Active Communication Order [RC] PRN Care 04/17/19 11:11 Active Communication Order [RC] PRN Care 04/17/19 11:11 Active Insert Urinary Catheter [OM.PC] Q24H Care 04/17/19 08:00 Ordered Neurovascular Check [RC] Q2HR Care 04/17/19 11:11 Active Notify Provider Consults [RC] ASDIRECTED Care 04/17/19 11:19 Active Notify Provider Vital Signs [RC] ASDIRECTED Care 04/17/19 11:11 Active RT Aerosol Therapy [RC] ASDIRECTED Care 04/17/19 11:23 Active RT Incentive Spirometry [RC] Q1HWA Care 04/17/19 11:11 Active Urinary Catheter Removal [RC] ASDIRECTED Care 04/18/19 11:11 Active Vital Signs [RC] PER UNIT ROUTINE Care 04/17/19 11:11 Active Wound Care [RC] DAILY Care 04/17/19 11:11 Active Consult to Physician [CONS] Routine Cons 04/17/19 11:11 Active PT Evaluation and Treatment [CONS] Routine Cons 04/17/19 11:11 Active Regular Diet [DIET] Diet 04/17/19 Lunch Active HEMOGLOBIN/HEMATOCRIT,HH [HEME] DAILY Lab 04/18/19 06:00 Ordered HEMOGLOBIN/HEMATOCRIT,HH [HEME] DAILY Lab 04/19/19 06:00 Ordered Acetaminophen [Ofirmev] 1,000 mg Med 04/17/19 06:00 Active Premix Bag 1 bag IV ONARRIVE Acetaminophen [Ofirmev] 1,000 mg Med 04/17/19 15:00 Active Premix Bag 1 bag IV Q6H Acetaminophen/oxyCODONE [Percocet 325-5 MG] Med 04/18/19 06:00 Active 1 - 2 tab PO Q4H PRN Albuterol [Ventolin HFA] Med 04/17/19 11:23 Active 0 gm INH ASDIRECTED PRN Albuterol/Ipratropium [DuoNeb 3.0-0.5 MG/3 ML] Med 04/17/19 11:22 Active 3 ml NEB Q4HRRT PRN Alum Hydrox/Mag Hydrox/Simeth [Mag-Al Plus] Med 04/17/19 11:11 Active 30 ml PO Q4H PRN Aspirin Med 04/18/19 09:00 Active 325 mg PO BID Bisacodyl [Dulcolax] Med 04/17/19 11:11 Active 10 mg RECTAL DAILY PRN Celecoxib [CeleBREX] Med 04/18/19 09:00 Active 200 mg PO BID Docusate Sodium [Colace] Med 04/17/19 11:11 Active 100 mg PO BID PRN Famotidine [Pepcid] Med 04/17/19 06:00 Active 40 mg IVPUSH ONARRIVE Famotidine [Pepcid] Med 04/18/19 09:00 Active 40 mg PO DAILY Fexofenadine [Lennie] Med 04/18/19 09:00 Active 30 mg PO DAILY Ketorolac [Toradol] Med 04/17/19 06:00 Active 15 mg IVPUSH ONARRIVE Ketorolac [Toradol] Med 04/17/19 15:30 Active 15 mg IVPUSH Q6H Lactated Ringers [Ringers, Lactated] 1,000 ml Med 04/17/19 06:00 Active IV ASDIRECTED Losartan [Cozaar] Med 04/18/19 08:00 Active 12.5 mg PO BRK Montelukast [Singulair] Med 04/18/19 09:00 Active 10 mg PO DAILY Morphine Med 04/17/19 11:22 Active 1 - 3 mg IVPUSH Q3H PRN Ondansetron [Zofran] Med 04/17/19 11:11 Active 4 mg IVPUSH Q6H PRN Patient's Own Medication [Ptom] Med 04/18/19 09:00 Active 1 each INH DAILY Patient's Own Medication [Ptom] Med 04/17/19 11:30 Active 1 each NEB ASDIRECTED PRN Polyethylene Glycol 3350 [MiraLAX] Med 04/18/19 09:00 Active 17 gm PO DAILY Ropivacaine [Naropin 0.2%] 49.25 ml Med 04/17/19 06:00 Active Ketorolac [Toradol] 30 mg EPINEPHrine [Adrenalin] 0.5 mg cloNIDine [Duraclon] 80 mcg Sodium Chloride 0.9% [Normal Saline] 23.45 ml INJECT ASDIRECTED Scopolamine [Transderm-Scop] Med 04/17/19 06:00 Active 1.5 mg TRDERM ONARRIVE Sodium Chloride 0.9% [Saline Flush] Med 04/17/19 11:11 Active 10 ml FLUSH ASDIRECTED PRN Sodium Chloride 0.9% [Saline Flush] Med 04/17/19 11:11 Active 2.5 ml FLUSH ASDIRECTED PRN ceFAZolin [Ancef] 1 gm Med 04/17/19 08:00 Active Premix Bag 1 bag IV ONCALL ceFAZolin [Ancef] 1 gm Med 04/17/19 18:00 Active Premix Bag 1 bag IV Q8H diphenhydrAMINE [Benadryl] Med 04/17/19 11:11 Active 25 - 50 mg PO Q6H PRN oxyCODONE Med 04/17/19 06:00 Active 5 - 10 mg PO Q4H PRN Convert IV to Saline Lock [OM.PC] PRN Oth 04/17/19 11:15 Ordered Convert IV to Saline Lock [OM.PC] PRN Oth 04/18/19 11:15 Ordered Ice Therapy [OM.PC] Routine Oth 04/17/19 11:11 Ordered Obtain Home Medication List [OM.PC] Routine Oth 04/17/19 06:00 Ordered Sequential Compression Device [OM.PC] Routine Ot 04/17/19 08:00 Ordered Medication Orders Al Hydroxide/Mg Hydroxide (Mag-Al Plus) 30 ml PO Q4H PRN PRN Reason: Indigestion Albuterol (Ventolin Hfa) 0 gm INH ASDIRECTED PRN PRN Reason: Wheezing Albuterol/Ipratropium (Duoneb 3.0-0.5 Mg/3 Ml) 3 ml NEB Q4HRRT PRN PRN Reason: SOB/wheezing Aspirin (Aspirin) 325 mg PO BID SRINIVAS Bisacodyl (Dulcolax) 10 mg RECTAL DAILY PRN PRN Reason: Constipation Celecoxib (Celebrex) 200 mg PO BID SRINIVAS Diphenhydramine HCl (Benadryl) 25 - 50 mg PO Q6H PRN PRN Reason: Itching Docusate Sodium (Colace) 100 mg PO BID PRN PRN Reason: Constipation Famotidine (Pepcid) 40 mg IVPUSH ONARRIVE SRINIVAS Last Admin: 04/17/19 09:20 Dose: 40 mg Famotidine (Pepcid) 40 mg PO DAILY SRINIVAS Fexofenadine HCl (Lennie) 30 mg PO DAILY SRINIVAS Acetaminophen 1,000 mg/ Premix 100 mls @ 400 mls/hr IV ONARRIVE SRINIVAS Last Admin: 04/17/19 09:23 Dose: 400 mls/hr Cefazolin Sodium/Dextrose 1 gm (/ Premix) 50 mls @ 100 mls/hr IV ONCALL SRINIVAS Ropivacaine 49.25 ml/Ketorolac Tromethamine 30 mg/Epinephrine HCl 0.5 mg/ Clonidine HCl 80 mcg/ Sodium Chloride 75 mls @ 50 mls/sec INJECT ASDIRECTED [facility] Lactated Ringer's (Ringers, Lactated) 1,000 mls @ 100 mls/hr IV ASDIRECTED [facility] Last Admin: 04/17/19 09:10 Dose: 100 mls/hr Acetaminophen 1,000 mg/ Premix 100 mls @ 400 mls/hr IV Q6H [facility] Stop: 04/18/19 03:14 Cefazolin Sodium/Dextrose 1 gm (/ Premix) 50 mls @ 100 mls/hr IV Q8H [facility] Stop: 04/18/19 02:29 Ketorolac Tromethamine (Toradol) 15 mg IVPUSH ONARRIVE [facility] Last Admin: 04/17/19 09:18 Dose: 15 mg Ketorolac Tromethamine (Toradol) 15 mg IVPUSH Q6H [facility] Stop: 04/18/19 05:00 Losartan Potassium (Cozaar) 12.5 mg PO BRK [facility] Montelukast Sodium (Singulair) 10 mg PO DAILY [facility] Morphine Sulfate (Morphine) 1 - 3 mg IVPUSH Q3H PRN PRN Reason: Pain Ondansetron HCl (Zofran) 4 mg IVPUSH Q6H PRN PRN Reason: Nausea/Vomiting Oxycodone HCl (Oxycodone) 5 - 10 mg PO Q4H PRN PRN Reason: Pain Stop: 04/18/19 08:00 Oxycodone/Acetaminophen (Percocet 325-5 Mg) 1 - 2 tab PO Q4H PRN PRN Reason: Pain Fluticasone/Vilanterol 1 Inhalation 1 each INH DAILY [facility] Albuterol Neb 1.25 (Mg/3 Ml - 1 Dose)) 1 each NEB ASDIRECTED PRN PRN Reason: Wheezing Polyethylene Glycol (Miralax) 17 gm PO DAILY [facility] Scopolamine (Transderm-Scop) 1.5 mg TRDERM ONARRIVE [facility] Last Admin: 04/17/19 09:14 Dose: 1.5 mg Sodium Chloride (Saline Flush) 10 ml FLUSH ASDIRECTED PRN PRN Reason: Keep Vein Open Sodium Chloride (Saline Flush) 2.5 ml FLUSH ASDIRECTED PRN PRN Reason: Keep Vein Open Assessment/Plan Comment:: This 73 year old female admitted s/p revision of L TKA with Dr Sigala. Hospitalist service consulted for asthma and HTN 1. S/P L TKA revision: Orders per Orthopedics. 2. Asthma: Stable. Continue Breo daily, inhaler PRN. Will order Duoneb PRN sob/ wheezing 3. HTN: Stable. BMP WNL. Continue Losartan. VTE prophylaxis: Would recommended when deemed appropriate by Orthopedics
[2019-04-17] MEDS: Acetaminophen 1,000 MG in Premix Bag 1 BAG IV SCH ×2 (15:14→20:41)
[2019-04-17] MEDS: Ketorolac 15 MG/ML SDV IVPUSH SCH ×2 (15:21→20:42)
[2019-04-17] MEDS: oxyCODONE 5 MG Tab PO PRN (16:22)
--- NOTE | 2019-04-17 18:10 | OR ---
SURGEON: Shanice Sigala MD DATE OF PROCEDURE: 04/17/2019 PREOPERATIVE DIAGNOSIS: Painful left total knee arthroplasty. POSTOPERATIVE DIAGNOSIS: Painful left total knee arthroplasty. PROCEDURE: Revision of left total knee arthroplasty with replacement of polyethylene liner. PRIMARY SURGEON: Shanice Sigala MD. ASSISTANTS: Laurence Layton PA-C and ANDREEA Nunes. REASON AND ROLE FOR CMM TECHNICIAN: Retraction, prepping, draping, positioning, and closure assistance. ANESTHESIA: Spinal with sedation. ESTIMATED BLOOD LOSS: 20 mL. TOURNIQUET TIME: 14 minutes. COMPLICATIONS: None. DVT PROPHYLAXIS: PAS boot and HARDIK hose to the nonoperative leg. IMPLANTS USED: [employer] 14 mm all-polyethylene articular surface. BRIEF HISTORY: Michelle is a 73-year-old female who previously underwent a left total knee arthroplasty in 2017. She did develop arthrofibrosis postoperatively and subsequently underwent a knee manipulation. She continued to have pain. She did have inflammatory laboratory studies done preoperatively, which were negative for infection. Due to her continued pain, I did recommend surgical intervention. The risks and goals of the procedure were discussed with the patient and were documented preoperatively. She agreed to proceed. DESCRIPTION OF PROCEDURE: The patient was properly identified and brought to the operating room. She was transferred from the OR cart and placed on the operating table in a supine position. Spinal anesthetic was administered. After adequate anesthesia was obtained, a well-padded tourniquet was applied to the left lower extremity. The left lower extremity was then prepped in standard fashion using ChloraPrep solution. It was then sterilely draped. A time-out was performed to ensure correct site and procedure. Preoperative antibiotics were given. The surgical site had been marked preoperatively. Tranexamic acid was also given preoperatively. An Esmarch was used to exsanguinate the left lower extremity and the tourniquet was inflated to 250 mmHg. An incision was made over the site of the previous incision. Subcutaneous tissues were incised down to the level of the fascia. The medial parapatellar approach to the knee was then made. There was minimal straw-colored fluid present. There was no evidence of obvious infection. The prosthesis was then visualized. The polyethylene that was in place was removed without difficulty. No excess wear or abnormal wear was noted on inspection. She did have quite a bit of abundant scar tissue in the gutters and suprapatellar pouch, which were excised or freed. The patella tendon was quite scarred to the proximal tibia and I elected to leave this in place. The wound was then copiously irrigated with 3 L of normal saline using a Pulsavac flight crew time clerk. The femoral and tibial prosthesis were then inspected. There was no evidence of loosening and they appeared to be well adhered to the bony surface. I then trialed a 14 mm all-polyethylene articular surface. She previously had a [address] The 14 appeared to provide good stability to medial and lateral stressing. No significant anterior translation was noted. I elected to proceed with the 14 mm articular surface. The trial was then removed. The tourniquet was then deflated. No excess bleeding was noted. The 14 mm polyethylene articular surface was then inserted. This was locked into position. Her knee was again taken through a range of motion. The patella appeared to track centrally. There was some scar tissue around the patella that I did remove. The deep tissues were then closed with #1 Vicryl. Subcutaneous tissues were closed with 2-0 Vicryl and the skin was closed with irene. A mixture of Toradol, clonidine, ropivacaine, and epinephrine along with saline was introduced along the periosteum as well as into the subcutaneous tissues. Xeroform gauze was placed over the wound and a bulky dressing was applied. She was awakened from her anesthetic and transferred back to the operating room cart. She was brought to recovery room in stable condition. All needle and sponge counts were correct. FELISHA / JUSTEN /[id number]
[2019-04-17] MEDS: ceFAZolin 1 GM in Premix Bag 1 BAG IV SCH (18:20)
[2019-04-18] MEDS: oxyCODONE 5 MG Tab PO PRN
[2019-04-18] MEDS: ceFAZolin 1 GM in Premix Bag 1 BAG IV SCH (01:49)
[2019-04-18] MEDS: Acetaminophen 1,000 MG in Premix Bag 1 BAG IV SCH (03:26)
[2019-04-18] MEDS: Ketorolac 15 MG/ML SDV IVPUSH SCH (03:26)
[2019-04-18] MEDS ORDERED: Acetaminophen/oxyCODONE 325-5 MG Tab PO PRN (06:00)
[2019-04-18 06:01] LABS: CARBON DIOXIDE,CO2 25.7 mmol/L (21.0-32.0); POTASSIUM,K 4.4 mmol/L (3.5-5.1)
[2019-04-18] MEDS ORDERED: Losartan 50 MG Tab PO SCH (08:00)
[2019-04-18] MEDS ORDERED: Fluticasone/Vilanterol 1 INHALATION INH SCH (09:00)
[2019-04-18] MEDS ORDERED: Polyethylene Glycol 3350 Powder 17 GM Packet PO SCH (09:00)
[2019-04-18] MEDS ORDERED: Famotidine 20 MG Tab PO SCH (09:00)
[2019-04-18] MEDS ORDERED: Celecoxib 100 MG Cap PO SCH (09:00)
[2019-04-18] MEDS ORDERED: Montelukast 10 MG Tab PO SCH (09:00)
[2019-04-18] MEDS ORDERED: Aspirin 325 MG Tab PO SCH (09:00)
--- NOTE | 2019-04-18 09:35 | PCM.CONSN ---
- General Info Date of Service: 04/18/19 Admission Dx/Problem (Free Text): s/p REVISION LEFT TOTAL KNEE ARTHROPLASTY Subjective Update: Sitting up in chair this morning, eating breakfast. No concerns. Pain is 0/10. No chest pain or SOB. Functional Status: Reports: Pain Controlled, Tolerating Diet, Ambulating, Urinating - Review of Systems Pulmonary: Reports: No Symptoms. Denies: Shortness of Breath Cardiovascular: Reports: No Symptoms. Denies: Chest Pain Gastrointestinal: Reports: No Symptoms. Denies: Abdominal Pain, Constipation, Nausea Genitourinary: Reports: No Symptoms Skin: Reports: No Symptoms Neurological: Reports: No Symptoms Psychiatric: Reports: No Symptoms - Patient Data Vitals - Most Recent: Last Vital Signs Temp 98.7 F 04/18/19 07:47 Pulse 57 L 04/18/19 07:47 Resp 18 04/18/19 07:47 BP 133/69 04/18/19 08:25 Pulse Ox 95 04/18/19 07:47 Weight - Most Recent: 81.647 kg I&O - Last 24 Hours: Intake & Output 04/17/19 04/18/19 04/18/19 22:59 06:59 14:59 Intake Total 747 2630 Output Total 272 600 Balance 475 2030 Lab Results Last 24 Hours: Laboratory Results - last 24 hr 04/17/19 04/17/19 04/18/19 Range/Units 09:16 11:41 05:35 Hgb 12.2 (12.0-16.0) g/dL Hct 36.7 (36.0-46.0) % Sodium 142 (136-145) mmol/L Potassium 4.4 (3.5-5.1) mmol/L Chloride 110 H (98-107) mmol/L Carbon Dioxide 26.0 (21.0-32.0) mmol/L BUN 20 H (7.0-18.0) mg/dL Creatinine 0.9 (0.6-1.0) mg/dL Est Cr Clr Drug Dosing 46.05 mL/min Estimated GFR (MDRD) > 60.0 ml/min Glucose 108 H (74-106) mg/dL Calcium 8.2 L (8.5-10.1) mg/dL Magnesium 1.8 (1.8-2.4) mg/dL Blood Type O POSITIVE Antibody Screen NEGATIVE 04/18/19 Range/Units 05:35 Hgb (12.0-16.0) g/dL Hct (36.0-46.0) % Sodium 142 (136-145) mmol/L Potassium 4.4 (3.5-5.1) mmol/L Chloride 108 H (98-107) mmol/L Carbon Dioxide 25.7 (21.0-32.0) mmol/L BUN 22 H (7.0-18.0) mg/dL Creatinine 1.1 H (0.6-1.0) mg/dL Est Cr Clr Drug Dosing 37.68 mL/min Estimated GFR (MDRD) 48.7 ml/min Glucose 110 H (74-106) mg/dL Calcium 8.1 L (8.5-10.1) mg/dL Magnesium (1.8-2.4) mg/dL Blood Type Antibody Screen Med Orders - Current: Current Medications Al Hydroxide/Mg Hydroxide (Mag-Al Plus) 30 ml PO Q4H PRN PRN Reason: Indigestion Albuterol (Ventolin Hfa) 0 gm INH ASDIRECTED PRN PRN Reason: Wheezing Albuterol/Ipratropium (Duoneb 3.0-0.5 Mg/3 Ml) 3 ml NEB Q4HRRT PRN PRN Reason: SOB/wheezing Aspirin (Aspirin) 325 mg PO BID [facility] Last Admin: 04/18/19 08:27 Dose: 325 mg Bisacodyl (Dulcolax) 10 mg RECTAL DAILY PRN PRN Reason: Constipation Celecoxib (Celebrex) 200 mg PO BID [facility] Last Admin: 04/18/19 08:28 Dose: 200 mg Diphenhydramine HCl (Benadryl) 25 - 50 mg PO Q6H PRN PRN Reason: Itching Docusate Sodium (Colace) 100 mg PO BID PRN PRN Reason: Constipation Famotidine (Pepcid) 40 mg PO DAILY [facility] Last Admin: 04/18/19 08:29 Dose: 40 mg Fexofenadine HCl (Lennie) 30 mg PO DAILY [facility] Lactated Ringer's (Ringers, Lactated) 1,000 mls @ 100 mls/hr IV ASDIRECTED [facility] Last Admin: 04/17/19 23:49 Dose: 100 mls/hr Losartan Potassium (Cozaar) 12.5 mg PO BRK [facility] Last Admin: 04/18/19 08:25 Dose: 12.5 mg Montelukast Sodium (Singulair) 10 mg PO DAILY [facility] Last Admin: 04/18/19 08:24 Dose: 10 mg Morphine Sulfate (Morphine) 1 - 3 mg IVPUSH Q3H PRN PRN Reason: Pain Ondansetron HCl (Zofran) 4 mg IVPUSH Q6H PRN PRN Reason: Nausea/Vomiting Oxycodone/Acetaminophen (Percocet 325-5 Mg) 1 - 2 tab PO Q4H PRN PRN Reason: Pain Last Admin: 04/18/19 08:30 Dose: 2 tab Fluticasone/Vilanterol 1 Inhalation 1 each INH DAILY [facility] Last Admin: 04/18/19 08:48 Dose: 1 each Albuterol Neb 1.25 (Mg/3 Ml - 1 Dose)) 1 each NEB ASDIRECTED PRN PRN Reason: Wheezing Polyethylene Glycol (Miralax) 17 gm PO DAILY [facility] Last Admin: 04/18/19 08:33 Dose: 17 gm Scopolamine (Transderm-Scop) 1.5 mg TRDERM ONARRIVE [facility] Last Admin: 04/17/19 09:14 Dose: 1.5 mg Sodium Chloride (Saline Flush) 10 ml FLUSH ASDIRECTED PRN PRN Reason: Keep Vein Open Sodium Chloride (Saline Flush) 2.5 ml FLUSH ASDIRECTED PRN PRN Reason: Keep Vein Open Discontinued Medications Famotidine (Pepcid) 40 mg IVPUSH ONARRIVE [facility] Last Admin: 04/17/19 09:20 Dose: 40 mg Fentanyl (Sublimaze) Confirm Administered Dose 100 mcg .ROUTE .STK-MED ONE Stop: 04/17/19 09:28 Acetaminophen 1,000 mg/ Premix 100 mls @ 400 mls/hr IV ONARRIVE [facility] Last Admin: 04/17/19 09:23 Dose: 400 mls/hr Cefazolin Sodium/Dextrose 1 gm (/ Premix) 50 mls @ 100 mls/hr IV ONCALL [facility] Ropivacaine 49.25 ml/Ketorolac Tromethamine 30 mg/Epinephrine HCl 0.5 mg/ Clonidine HCl 80 mcg/ Sodium Chloride 75 mls @ 50 mls/sec INJECT ASDIRECTED [facility] Tranexamic Acid 2,000 mg/ (Sodium Chloride) 120 mls @ 600 mls/hr IV ASDIRECTED ONE Stop: 04/17/19 08:11 Last Admin: 04/17/19 12:44 Dose: Not Given Sodium Chloride (Normal Saline) Confirm Administered Dose 20 mls @ as directed .ROUTE .STK-MED ONE Stop: 04/17/19 09:27 Acetaminophen 1,000 mg/ Premix 100 mls @ 400 mls/hr IV Q6H [facility] Stop: 04/18/19 03:14 Last Admin: 04/18/19 03:26 Dose: 400 mls/hr Cefazolin Sodium/Dextrose 1 gm (/ Premix) 50 mls @ 100 mls/hr IV Q8H [facility] Stop: 04/18/19 02:29 Last Admin: 04/18/19 01:49 Dose: 100 mls/hr Ketorolac Tromethamine (Toradol) 15 mg IVPUSH ONARRIVE [facility] Last Admin: 04/17/19 09:18 Dose: 15 mg Ketorolac Tromethamine (Toradol) 15 mg IVPUSH Q6H [facility] Stop: 04/18/19 05:00 Last Admin: 04/18/19 03:26 Dose: 15 mg Midazolam HCl (Versed 1 Mg/Ml) Confirm Administered Dose 2 mg .ROUTE .STK-MED ONE Stop: 04/17/19 09:28 Midazolam HCl (Versed 1 Mg/Ml) Confirm Administered Dose 2 mg .ROUTE .STK-MED ONE Stop: 04/17/19 09:28 Midazolam HCl (Versed 1 Mg/Ml) Confirm Administered Dose 2 mg .ROUTE .STK-MED ONE Stop: 04/17/19 10:03 Oxycodone HCl (Oxycodone) 5 - 10 mg PO Q4H PRN PRN Reason: Pain Stop: 04/18/19 08:00 Last Admin: 04/18/19 00:00 Dose: 10 mg Phenylephrine HCl (Brooks-Synephrine) Confirm Administered Dose 10 mg .ROUTE .STK- MED ONE Stop: 04/17/19 10:59 Propofol (Diprivan 20 Ml) Confirm Administered Dose 600 mg .ROUTE .STK-MED ONE Stop: 04/17/19 07:22 Tranexamic Acid (Cyklokapron) Confirm Administered Dose 2,000 mg .ROUTE .STK- MED ONE Stop: 04/17/19 09:03 - Exam General: Alert, Oriented, Cooperative Lungs: Clear to Auscultation, Normal Respiratory Effort Cardiovascular: Regular Rate, Regular Rhythm GI/Abdominal Exam: Normal Bowel Sounds, Soft, Non-Tender Extremities: Normal Inspection, Normal Range of Motion, Non-Tender, No Pedal Edema Wound/Incisions: Dressing Dry and Intact Neurological: No New Focal Deficit Psy/Mental Status: Alert, Normal Affect, Normal Mood Consult PN Assessment/Plan POD#: 1 Procedures: Procedures AIRWAY INHALATION TREATMENT (09/25/18) ARTHROSCOP ROTATOR CUFF REPR (09/16/16) ASSAY OF NATRIURETIC PEPTIDE (09/25/18) BLOOD TYPING SEROLOGIC ABO (02/15/17) BLOOD TYPING SEROLOGIC RH(D) (02/15/17) C-REACTIVE PROTEIN (09/14/17) COMPLETE CBC W/AUTO DIFF WBC (09/25/18) COMPREHEN METABOLIC PANEL (09/25/18) DRAIN/INJ JOINT/BURSA W/O US (09/29/16) ELECTROCARDIOGRAM TRACING (09/25/18) EMERGENCY DEPT VISIT (10/19/18) EMERGENCY DEPT VISIT (09/25/18) FIXATION OF KNEE JOINT (05/10/17) GAIT TRAINING THERAPY (10/21/15) HEMATOCRIT (02/15/17) HEMOGLOBIN (02/15/17) HEPATOBIL SYST IMAGE W/DRUG (04/29/16) HOT OR COLD PACKS THERAPY (05/13/17) HYDRATE IV INFUSION ADD-ON (09/25/18) INJ TENDON SHEATH/LIGAMENT (10/27/16) KNEE ARTHROSCOPY/SURGERY (04/08/15) LAPAROSCOPIC CHOLECYSTECTOMY (06/09/16) MANUAL THERAPY 1/> REGIONS (05/13/16) MRI JNT OF LWR EXTRE W/O DYE (01/19/17) MRI JOINT UPR EXTREM W/O DYE (05/01/16) N BLOCK OTHER PERIPHERAL (09/29/17) OFFICE/OUTPATIENT VISIT EST (08/06/15) OFFICE/OUTPATIENT VISIT NEW (09/29/17) PT EVAL LOW COMPLEX 20 MIN (03/11/17) PT EVAL MOD COMPLEX 30 MIN (02/15/17) PT EVALUATION (05/13/16) PT RE-EVAL EST PLAN CARE (05/13/17) RBC ANTIBODY SCREEN (02/15/17) RBC SED RATE AUTOMATED (09/14/17) ROUTINE VENIPUNCTURE (09/25/18) SHOULDER ARTHROSCOPY/SURGERY (09/16/16) THER/PROPH/DIAG INJ SC/IM (10/19/18) THER/PROPH/DIAG IV INF INIT (09/25/18) THERAPEUTIC ACTIVITIES (02/15/17) THERAPEUTIC EXERCISES (05/21/17) TX/PRO/DX INJ NEW DRUG ADDON (09/25/18) ULTRASOUND THERAPY (12/22/16) URINALYSIS AUTO W/O SCOPE (04/08/15) VASOPNEUMATIC DEVICE THERAPY (05/21/17) X-RAY EXAM CHEST 1 VIEW (09/25/18) X-RAY EXAM CHEST 2 VIEWS (10/19/18) X-RAY EXAM KNEE 4 OR MORE (09/29/16) X-RAY EXAM OF KNEE 1 OR 2 (02/15/17) X-RAY EXAM OF KNEE 3 (02/22/18) X-RAY EXAM OF SHOULDER (03/24/16) (1) S/P revision of total knee SNOMED Code(s): 4853402947490, 04512664, 8152876413747 Code(s): Z96.659 - PRESENCE OF UNSPECIFIED ARTIFICIAL KNEE JOINT Current Visit: Yes Qualifiers: Laterality: left Qualified Code(s): Z96.652 - Presence of left artificial knee joint (2) Asthma SNOMED Code(s): 290025895 Code(s): J45.909 - UNSPECIFIED ASTHMA, UNCOMPLICATED Current Visit: Yes Qualifiers: Asthma severity: mild Asthma persistence: intermittent Asthma complication type: uncomplicated Qualified Code(s): J45.20 - Mild intermittent asthma, uncomplicated (3) HTN (hypertension) SNOMED Code(s): 00724605 Code(s): I10 - ESSENTIAL (PRIMARY) HYPERTENSION Current Visit: Yes Qualifiers: Hypertension type: essential hypertension Qualified Code(s): I10 - Essential (primary) hypertension (4) Obesity SNOMED Code(s): 802242171, 216377146 Code(s): E66.9 - OBESITY, UNSPECIFIED Current Visit: Yes Problem List Initiated/Reviewed/Updated: Yes My Orders Last 24 Hours: My Active Orders 04/17/19 11:22 Albuterol/Ipratropium [DuoNeb 3.0-0.5 MG/3 ML] 3 ml NEB Q4HRRT PRN 04/17/19 11:23 RT Aerosol Therapy [RC] ASDIRECTED Albuterol [Ventolin HFA] 0 gm INH ASDIRECTED PRN 04/18/19 08:00 Losartan [Cozaar] 12.5 mg PO BRK 04/18/19 09:00 Fexofenadine [Lennie] 30 mg PO DAILY Montelukast [Singulair] 10 mg PO DAILY Patient's Own Medication [Ptom] 1 each INH DAILY Plan: This 73 year old female admitted s/p revision of L TKA with Dr Sigala. Hospitalist service consulted for asthma and HTN 1. S/P L TKA revision: Orders per Orthopedics. 2. Asthma: Stable. Continue Breo daily, inhaler PRN. Will order Duoneb PRN sob/ wheezing 3. HTN: Stable. BMP WNL. Continue Losartan. VTE prophylaxis: Would recommended when deemed appropriate by Orthopedics Dispo: Ok for discharge from Hospitalist stand point.
--- NOTE | 2019-04-18 11:22 | PCM.SURGPN ---
<Audelia Blackwell - Last Filed: 04/18/19 11:17> - General Info Date of Service: 04/18/19 (1000) Date of Surgery/Procedure: 04/17/19 (Left knee revision) POD#: 1 Admission Diagnosis/Problem: Knee pain Functional Status: Reports: Pain Controlled (tolerating oral narcotic, did not need supplemental IV morphine), Tolerating Diet, Ambulating (ambulating with staff & PT with walker). Denies: Urinating (Urine output was only 600cc, with an additional 250cc at current time.) - Review of Systems General: Reports: No Symptoms. Denies: Fever Pulmonary: Reports: No Symptoms. Denies: Shortness of Breath (medical history of asthma, currently good control with use of Breo. Not necessitating use of albuterol ), Cough Cardiovascular: Reports: No Symptoms. Denies: Chest Pain Gastrointestinal: Denies: Abdominal Pain, Nausea, Vomiting Genitourinary: Reports: Other (thomas catheter still inserted) Musculoskeletal: Reports: Joint Pain (post-operative knee pain) Neurological: Reports: No Symptoms. Denies: Confusion, Dizziness Psychiatric: Reports: No Symptoms. Denies: Confusion Systems Review Comment:: Has been up in chair for meals (supper last evening and breakfast this morning). Ambulated with PT with use of walker. - Patient Data Vitals - Most Recent: Last Vital Signs Temp 37.1 C 04/18/19 07:47 Pulse 57 L 04/18/19 07:47 Resp 18 04/18/19 07:47 BP 133/69 04/18/19 08:25 Pulse Ox 95 04/18/19 07:47 Weight - Most Recent: 81.647 kg I&O - Last 24 Hours: Intake & Output 04/17/19 04/18/19 04/18/19 22:59 06:59 14:59 Intake Total 747 2630 Output Total 272 600 Balance 475 2030 Lab Results Last 24 Hrs: Laboratory Results - last 24 hr 04/17/19 04/18/19 04/18/19 Range/Units 11:41 05:35 05:35 Hgb 12.2 (12.0-16.0) g/dL Hct 36.7 (36.0-46.0) % Sodium 142 142 (136-145) mmol/L Potassium 4.4 4.4 (3.5-5.1) mmol/L Chloride 110 H 108 H (98-107) mmol/L Carbon Dioxide 26.0 25.7 (21.0-32.0) mmol/L BUN 20 H 22 H (7.0-18.0) mg/dL Creatinine 0.9 1.1 H (0.6-1.0) mg/dL Est Cr Clr Drug Dosing 46.05 37.68 mL/min Estimated GFR (MDRD) > 60.0 48.7 ml/min Glucose 108 H 110 H (74-106) mg/dL Calcium 8.2 L 8.1 L (8.5-10.1) mg/dL Magnesium 1.8 (1.8-2.4) mg/dL Med Orders - Current: Current Medications Al Hydroxide/Mg Hydroxide (Mag-Al Plus) 30 ml PO Q4H PRN PRN Reason: Indigestion Albuterol (Ventolin Hfa) 0 gm INH ASDIRECTED PRN PRN Reason: Wheezing Albuterol/Ipratropium (Duoneb 3.0-0.5 Mg/3 Ml) 3 ml NEB Q4HRRT PRN PRN Reason: SOB/wheezing Aspirin (Aspirin) 325 mg PO BID [facility] Last Admin: 04/18/19 08:27 Dose: 325 mg Bisacodyl (Dulcolax) 10 mg RECTAL DAILY PRN PRN Reason: Constipation Celecoxib (Celebrex) 200 mg PO BID [facility] Last Admin: 04/18/19 08:28 Dose: 200 mg Diphenhydramine HCl (Benadryl) 25 - 50 mg PO Q6H PRN PRN Reason: Itching Docusate Sodium (Colace) 100 mg PO BID PRN PRN Reason: Constipation Famotidine (Pepcid) 40 mg PO DAILY [facility] Last Admin: 04/18/19 08:29 Dose: 40 mg Fexofenadine HCl (Lennie) 30 mg PO DAILY [facility] Lactated Ringer's (Ringers, Lactated) 1,000 mls @ 100 mls/hr IV ASDIRECTED [facility] Last Admin: 04/17/19 23:49 Dose: 100 mls/hr Losartan Potassium (Cozaar) 12.5 mg PO BRK [facility] Last Admin: 04/18/19 08:25 Dose: 12.5 mg Montelukast Sodium (Singulair) 10 mg PO DAILY [facility] Last Admin: 04/18/19 08:24 Dose: 10 mg Morphine Sulfate (Morphine) 1 - 3 mg IVPUSH Q3H PRN PRN Reason: Pain Ondansetron HCl (Zofran) 4 mg IVPUSH Q6H PRN PRN Reason: Nausea/Vomiting Oxycodone/Acetaminophen (Percocet 325-5 Mg) 1 - 2 tab PO Q4H PRN PRN Reason: Pain Last Admin: 04/18/19 08:30 Dose: 2 tab Fluticasone/Vilanterol 1 Inhalation 1 each INH DAILY [facility] Last Admin: 04/18/19 08:48 Dose: 1 each Albuterol Neb 1.25 (Mg/3 Ml - 1 Dose)) 1 each NEB ASDIRECTED PRN PRN Reason: Wheezing Polyethylene Glycol (Miralax) 17 gm PO DAILY [facility] Last Admin: 04/18/19 08:33 Dose: 17 gm Scopolamine (Transderm-Scop) 1.5 mg TRDERM ONARRIVE [facility] Last Admin: 04/17/19 09:14 Dose: 1.5 mg Sodium Chloride (Saline Flush) 10 ml FLUSH ASDIRECTED PRN PRN Reason: Keep Vein Open Sodium Chloride (Saline Flush) 2.5 ml FLUSH ASDIRECTED PRN PRN Reason: Keep Vein Open Discontinued Medications Famotidine (Pepcid) 40 mg IVPUSH ONARRIVE [facility] Last Admin: 04/17/19 09:20 Dose: 40 mg Fentanyl (Sublimaze) Confirm Administered Dose 100 mcg .ROUTE .STK-MED ONE Stop: 04/17/19 09:28 Acetaminophen 1,000 mg/ Premix 100 mls @ 400 mls/hr IV ONARRIVE [facility] Last Admin: 04/17/19 09:23 Dose: 400 mls/hr Cefazolin Sodium/Dextrose 1 gm (/ Premix) 50 mls @ 100 mls/hr IV ONCALL [facility] Ropivacaine 49.25 ml/Ketorolac Tromethamine 30 mg/Epinephrine HCl 0.5 mg/ Clonidine HCl 80 mcg/ Sodium Chloride 75 mls @ 50 mls/sec INJECT ASDIRECTED [facility] Tranexamic Acid 2,000 mg/ (Sodium Chloride) 120 mls @ 600 mls/hr IV ASDIRECTED ONE Stop: 04/17/19 08:11 Last Admin: 04/17/19 12:44 Dose: Not Given Sodium Chloride (Normal Saline) Confirm Administered Dose 20 mls @ as directed .ROUTE .STK-MED ONE Stop: 04/17/19 09:27 Acetaminophen 1,000 mg/ Premix 100 mls @ 400 mls/hr IV Q6H [facility] Stop: 04/18/19 03:14 Last Admin: 04/18/19 03:26 Dose: 400 mls/hr Cefazolin Sodium/Dextrose 1 gm (/ Premix) 50 mls @ 100 mls/hr IV Q8H [facility] Stop: 04/18/19 02:29 Last Admin: 04/18/19 01:49 Dose: 100 mls/hr Ketorolac Tromethamine (Toradol) 15 mg IVPUSH ONARRIVE [facility] Last Admin: 04/17/19 09:18 Dose: 15 mg Ketorolac Tromethamine (Toradol) 15 mg IVPUSH Q6H [facility] Stop: 04/18/19 05:00 Last Admin: 04/18/19 03:26 Dose: 15 mg Midazolam HCl (Versed 1 Mg/Ml) Confirm Administered Dose 2 mg .ROUTE .STK-MED ONE Stop: 04/17/19 09:28 Midazolam HCl (Versed 1 Mg/Ml) Confirm Administered Dose 2 mg .ROUTE .STK-MED ONE Stop: 04/17/19 09:28 Midazolam HCl (Versed 1 Mg/Ml) Confirm Administered Dose 2 mg .ROUTE .STK-MED ONE Stop: 04/17/19 10:03 Oxycodone HCl (Oxycodone) 5 - 10 mg PO Q4H PRN PRN Reason: Pain Stop: 04/18/19 08:00 Last Admin: 04/18/19 00:00 Dose: 10 mg Phenylephrine HCl (Brooks-Synephrine) Confirm Administered Dose 10 mg .ROUTE .STK- MED ONE Stop: 04/17/19 10:59 Propofol (Diprivan 20 Ml) Confirm Administered Dose 600 mg .ROUTE .STK-MED ONE Stop: 04/17/19 07:22 Tranexamic Acid (Cyklokapron) Confirm Administered Dose 2,000 mg .ROUTE .STK- MED ONE Stop: 04/17/19 09:03 - Exam Wound/Incisions: Dressing Dry and Intact, No Drainage (Surgical dresssing removed. CDI. Large AquaCell applied). No: Erythema Quality Assessment: Urine Catheter, DVT Prophylaxis (compression stockings, SCDs , and ASA (started today)) General: Alert, Oriented, Cooperative, No Acute Distress HEENT: Pupils Equal Lungs: Normal Respiratory Effort Cardiovascular: Regular Rate Extremities: No Pedal Edema, Normal Capillary Refill, Other (AT/EHL/gastroc 5/ 5. Sensation grossly intact to LE. PP2+) Skin: Warm, Dry Neurological: Normal Speech, Normal Tone Psy/Mental Status: Alert, Normal Affect, Normal Mood - Problem List Review Problem List Initiated/Reviewed/Updated: Yes - My Orders Last 24 Hours: Active Orders 24 hr Category Date Time Status Communication Order [RC] PRN Care 04/17/19 11:11 Active Communication Order [RC] PRN Care 04/17/19 11:11 Active Neurovascular Check [RC] Q2HR Care 04/17/19 11:11 Active Notify Provider Consults [RC] ASDIRECTED Care 04/17/19 11:19 Active Notify Provider Vital Signs [RC] ASDIRECTED Care 04/17/19 11:11 Active RT Aerosol Therapy [RC] ASDIRECTED Care 04/17/19 11:23 Active RT Incentive Spirometry [RC] Q1HWA Care 04/17/19 11:11 Active Urinary Catheter Removal [RC] ASDIRECTED Care 04/18/19 11:11 Active Vital Signs [RC] PER UNIT ROUTINE Care 04/17/19 11:11 Active Wound Care [RC] DAILY Care 04/17/19 11:11 Active Consult to Physician [CONS] Routine Cons 04/17/19 11:11 Active PT Evaluation and Treatment [CONS] Routine Cons 04/17/19 11:11 Active Regular Diet [DIET] Diet 04/17/19 Lunch Active HEMOGLOBIN/HEMATOCRIT,HH [HEME] DAILY Lab 04/19/19 06:00 Ordered Acetaminophen/oxyCODONE [Percocet 325-5 MG] Med 04/18/19 06:00 Active 1 - 2 tab PO Q4H PRN Albuterol [Ventolin HFA] Med 04/17/19 11:23 Active 0 gm INH ASDIRECTED PRN Albuterol/Ipratropium [DuoNeb 3.0-0.5 MG/3 ML] Med 04/17/19 11:22 Active 3 ml NEB Q4HRRT PRN Alum Hydrox/Mag Hydrox/Simeth [Mag-Al Plus] Med 04/17/19 11:11 Active 30 ml PO Q4H PRN Aspirin Med 04/18/19 09:00 Active 325 mg PO BID Bisacodyl [Dulcolax] Med 04/17/19 11:11 Active 10 mg RECTAL DAILY PRN Celecoxib [CeleBREX] Med 04/18/19 09:00 Active 200 mg PO BID Docusate Sodium [Colace] Med 04/17/19 11:11 Active 100 mg PO BID PRN Famotidine [Pepcid] Med 04/18/19 09:00 Active 40 mg PO DAILY Fexofenadine [Lennie] Med 04/18/19 09:00 Active 30 mg PO DAILY Losartan [Cozaar] Med 04/18/19 08:00 Active 12.5 mg PO BRK Montelukast [Singulair] Med 04/18/19 09:00 Active 10 mg PO DAILY Morphine Med 04/17/19 11:22 Active 1 - 3 mg IVPUSH Q3H PRN Ondansetron [Zofran] Med 04/17/19 11:11 Active 4 mg IVPUSH Q6H PRN Patient's Own Medication [Ptom] Med 04/18/19 09:00 Active 1 each INH DAILY Patient's Own Medication [Ptom] Med 04/17/19 11:30 Active 1 each NEB ASDIRECTED PRN Polyethylene Glycol 3350 [MiraLAX] Med 04/18/19 09:00 Active 17 gm PO DAILY Sodium Chloride 0.9% [Saline Flush] Med 04/17/19 11:11 Active 10 ml FLUSH ASDIRECTED PRN Sodium Chloride 0.9% [Saline Flush] Med 04/17/19 11:11 Active 2.5 ml FLUSH ASDIRECTED PRN diphenhydrAMINE [Benadryl] Med 04/17/19 11:11 Active 25 - 50 mg PO Q6H PRN Convert IV to Saline Lock [OM.PC] PRN Oth 04/17/19 11:15 Ordered Convert IV to Saline Lock [OM.PC] PRN Oth 04/18/19 11:15 Ordered Ice Therapy [OM.PC] Routine Oth 04/17/19 11:11 Ordered Medication Orders Al Hydroxide/Mg Hydroxide (Mag-Al Plus) 30 ml PO Q4H PRN PRN Reason: Indigestion Albuterol (Ventolin Hfa) 0 gm INH ASDIRECTED PRN PRN Reason: Wheezing Albuterol/Ipratropium (Duoneb 3.0-0.5 Mg/3 Ml) 3 ml NEB Q4HRRT PRN PRN Reason: SOB/wheezing Aspirin (Aspirin) 325 mg PO BID [facility] Last Admin: 04/18/19 08:27 Dose: 325 mg Bisacodyl (Dulcolax) 10 mg RECTAL DAILY PRN PRN Reason: Constipation Celecoxib (Celebrex) 200 mg PO BID [facility] Last Admin: 04/18/19 08:28 Dose: 200 mg Diphenhydramine HCl (Benadryl) 25 - 50 mg PO Q6H PRN PRN Reason: Itching Docusate Sodium (Colace) 100 mg PO BID PRN PRN Reason: Constipation Famotidine (Pepcid) 40 mg PO DAILY [facility] Last Admin: 04/18/19 08:29 Dose: 40 mg Fexofenadine HCl (Lennie) 30 mg PO DAILY [facility] Lactated Ringer's (Ringers, Lactated) 1,000 mls @ 100 mls/hr IV ASDIRECTED [facility] Last Admin: 04/17/19 23:49 Dose: 100 mls/hr Infusion: 04/17/19 22:40 Dose: 100 mls/hr Admin: 04/17/19 12:40 Dose: 100 mls/hr Infusion: 04/17/19 12:40 Dose: 100 mls/hr Admin: 04/17/19 09:10 Dose: 100 mls/hr Losartan Potassium (Cozaar) 12.5 mg PO BRK [facility] Last Admin: 04/18/19 08:25 Dose: 12.5 mg Montelukast Sodium (Singulair) 10 mg PO DAILY [facility] Last Admin: 04/18/19 08:24 Dose: 10 mg Morphine Sulfate (Morphine) 1 - 3 mg IVPUSH Q3H PRN PRN Reason: Pain Ondansetron HCl (Zofran) 4 mg IVPUSH Q6H PRN PRN Reason: Nausea/Vomiting Oxycodone/Acetaminophen (Percocet 325-5 Mg) 1 - 2 tab PO Q4H PRN PRN Reason: Pain Last Admin: 04/18/19 08:30 Dose: 2 tab Fluticasone/Vilanterol 1 Inhalation 1 each INH DAILY [facility] Last Admin: 04/18/19 08:48 Dose: 1 each Albuterol Neb 1.25 (Mg/3 Ml - 1 Dose)) 1 each NEB ASDIRECTED PRN PRN Reason: Wheezing Polyethylene Glycol (Miralax) 17 gm PO DAILY [facility] Last Admin: 04/18/19 08:33 Dose: 17 gm Scopolamine (Transderm-Scop) 1.5 mg TRDERM ONARRIVE [facility] Last Admin: 04/17/19 09:14 Dose: 1.5 mg Sodium Chloride (Saline Flush) 10 ml FLUSH ASDIRECTED PRN PRN Reason: Keep Vein Open Sodium Chloride (Saline Flush) 2.5 ml FLUSH ASDIRECTED PRN PRN Reason: Keep Vein Open - Assessment Assessment (Free Text/Narrative):: s/p Left knee revision - Plan Plan (Free Text/Narrative):: Overall, she is doing well. Tolerating oral foods & fluids without N/V. Tolerating pain medication without N/V. Afebrile. VSS. Ambulating well with staff (nursing and PT) and walker. Neurovascular exam WNL to RLE. Surgical dressing removed. Large AquaCell bandage applied. Urine output increasing. Can remove thomas catheter and d/c IV fluids. Once she voids, she may be discharged home. <Shanice Sigala R - Last Filed: 04/19/19 09:46> - Patient Data Vitals - Most Recent: Last Vital Signs Temp 98.1 F 04/18/19 12:21 Pulse 61 04/18/19 12:21 Resp 16 04/18/19 12:21 BP 131/67 04/18/19 12:21 Pulse Ox 93 L 04/18/19 12:21 I&O - Last 24 Hours: Intake & Output 04/18/19 04/19/19 04/19/19 22:59 06:59 14:59 Intake Total 1800 Output Total 450 Balance 1350 Med Orders - Current: Current Medications Discontinued Medications Al Hydroxide/Mg Hydroxide (Mag-Al Plus) 30 ml PO Q4H PRN PRN Reason: Indigestion Albuterol (Ventolin Hfa) 0 gm INH ASDIRECTED PRN PRN Reason: Wheezing Albuterol/Ipratropium (Duoneb 3.0-0.5 Mg/3 Ml) 3 ml NEB Q4HRRT PRN PRN Reason: SOB/wheezing Aspirin (Aspirin) 325 mg PO BID [facility] Last Admin: 04/18/19 08:27 Dose: 325 mg Bisacodyl (Dulcolax) 10 mg RECTAL DAILY PRN PRN Reason: Constipation Celecoxib (Celebrex) 200 mg PO BID [facility] Last Admin: 04/18/19 08:28 Dose: 200 mg Diphenhydramine HCl (Benadryl) 25 - 50 mg PO Q6H PRN PRN Reason: Itching Docusate Sodium (Colace) 100 mg PO BID PRN PRN Reason: Constipation Famotidine (Pepcid) 40 mg IVPUSH ONARRIVE [facility] Last Admin: 04/17/19 09:20 Dose: 40 mg Famotidine (Pepcid) 40 mg PO DAILY [facility] Last Admin: 04/18/19 08:29 Dose: 40 mg Fentanyl (Sublimaze) Confirm Administered Dose 100 mcg .ROUTE .STK-MED ONE Stop: 04/17/19 09:28 Fexofenadine HCl (Lennie) 30 mg PO DAILY [facility] Last Admin: 04/18/19 11:32 Dose: Not Given Acetaminophen 1,000 mg/ Premix 100 mls @ 400 mls/hr IV ONARRIVE [facility] Last Admin: 04/17/19 09:23 Dose: 400 mls/hr Cefazolin Sodium/Dextrose 1 gm (/ Premix) 50 mls @ 100 mls/hr IV ONCALL [facility] Ropivacaine 49.25 ml/Ketorolac Tromethamine 30 mg/Epinephrine HCl 0.5 mg/ Clonidine HCl 80 mcg/ Sodium Chloride 75 mls @ 50 mls/sec INJECT ASDIRECTED [facility] Lactated Ringer's (Ringers, Lactated) 1,000 mls @ 100 mls/hr IV ASDIRECTED [facility] Last Admin: 04/17/19 23:49 Dose: 100 mls/hr Tranexamic Acid 2,000 mg/ (Sodium Chloride) 120 mls @ 600 mls/hr IV ASDIRECTED ONE Stop: 04/17/19 08:11 Last Admin: 04/17/19 12:44 Dose: Not Given Sodium Chloride (Normal Saline) Confirm Administered Dose 20 mls @ as directed .ROUTE .STK-MED ONE Stop: 04/17/19 09:27 Acetaminophen 1,000 mg/ Premix 100 mls @ 400 mls/hr IV Q6H [facility] Stop: 04/18/19 03:14 Last Admin: 04/18/19 03:26 Dose: 400 mls/hr Cefazolin Sodium/Dextrose 1 gm (/ Premix) 50 mls @ 100 mls/hr IV Q8H [facility] Stop: 04/18/19 02:29 Last Admin: 04/18/19 01:49 Dose: 100 mls/hr Ketorolac Tromethamine (Toradol) 15 mg IVPUSH ONARRIVE [facility] Last Admin: 04/17/19 09:18 Dose: 15 mg Ketorolac Tromethamine (Toradol) 15 mg IVPUSH Q6H [facility] Stop: 04/18/19 05:00 Last Admin: 04/18/19 03:26 Dose: 15 mg Losartan Potassium (Cozaar) 12.5 mg PO BRK [facility] Last Admin: 04/18/19 08:25 Dose: 12.5 mg Midazolam HCl (Versed 1 Mg/Ml) Confirm Administered Dose 2 mg .ROUTE .STK-MED ONE Stop: 04/17/19 09:28 Midazolam HCl (Versed 1 Mg/Ml) Confirm Administered Dose 2 mg .ROUTE .STK-MED ONE Stop: 04/17/19 09:28 Midazolam HCl (Versed 1 Mg/Ml) Confirm Administered Dose 2 mg .ROUTE .STK-MED ONE Stop: 04/17/19 10:03 Montelukast Sodium (Singulair) 10 mg PO DAILY [facility] Last Admin: 04/18/19 08:24 Dose: 10 mg Morphine Sulfate (Morphine) 1 - 3 mg IVPUSH Q3H PRN PRN Reason: Pain Ondansetron HCl (Zofran) 4 mg IVPUSH Q6H PRN PRN Reason: Nausea/Vomiting Oxycodone HCl (Oxycodone) 5 - 10 mg PO Q4H PRN PRN Reason: Pain Stop: 04/18/19 08:00 Last Admin: 04/18/19 00:00 Dose: 10 mg Oxycodone/Acetaminophen (Percocet 325-5 Mg) 1 - 2 tab PO Q4H PRN PRN Reason: Pain Last Admin: 04/18/19 08:30 Dose: 2 tab Fluticasone/Vilanterol 1 Inhalation 1 each INH DAILY [facility] Last Admin: 04/18/19 08:48 Dose: 1 each Albuterol Neb 1.25 (Mg/3 Ml - 1 Dose)) 1 each NEB ASDIRECTED PRN PRN Reason: Wheezing Phenylephrine HCl (Boroks-Synephrine) Confirm Administered Dose 10 mg .ROUTE .STK- MED ONE Stop: 04/17/19 10:59 Polyethylene Glycol (Miralax) 17 gm PO DAILY [facility] Last Admin: 04/18/19 08:33 Dose: 17 gm Propofol (Diprivan 20 Ml) Confirm Administered Dose 600 mg .ROUTE .STK-MED ONE Stop: 04/17/19 07:22 Scopolamine (Transderm-Scop) 1.5 mg TRDERM ONARRIVE [facility] Last Admin: 04/17/19 09:14 Dose: 1.5 mg Sodium Chloride (Saline Flush) 10 ml FLUSH ASDIRECTED PRN PRN Reason: Keep Vein Open Sodium Chloride (Saline Flush) 2.5 ml FLUSH ASDIRECTED PRN PRN Reason: Keep Vein Open Tranexamic Acid (Cyklokapron) Confirm Administered Dose 2,000 mg .ROUTE .STK- MED ONE Stop: 04/17/19 09:03 - My Orders Last 24 Hours: Active Orders 24 hr Category Date Time Status Ready for Discharge [RC] PER UNIT ROUTINE Care 04/18/19 11:45 Active Urinary Catheter Removal [RC] ASDIRECTED Care 04/18/19 11:11 Active Convert IV to Saline Lock [OM.PC] PRN Oth 04/18/19 11:15 Ordered - Plan Plan (Free Text/Narrative):: Late entry: Patient seen and examined at 1000 on 04/18/19. Agree with above note. Patient has been up with PT and is doing well. Plan to discharge home later today if doing well. rrk
[2019-04-18 12:22] VITALS: BP 131/67; PULSE 61
--- NOTE | 2019-04-19 12:33 | PCM.DCSUM1 ---
Discharge Summary - Hospital Course Free Text/Narrative:: DOCUMENT #[id number] - Discharge Data Discharge Date: 04/18/19 Discharge Disposition: Home, Self-Care 01 Condition: Good - Patient Summary/Data Operative Procedure(s) Performed: Revision L TKA Consults: Consultations 04/17/19 11:11 Consult to Physician [CONS] Routine PT Evaluation and Treatment [CONS] Routine - Patient Instructions Other/Special Instructions: Refer to Dr. Shanice Sigala's 'Post-operative patient instructions for TOTAL KNEE ARTHROPLASTY' - Discharge Plan Prescriptions/Med Rec: Acetaminophen/oxyCODONE [Percocet 325-5 MG] 1 - 2 tab PO Q4H PRN #60 tablet PRN Reason: Pain Aspirin 325 mg PO BID #60 tablet Celecoxib [CeleBREX] 200 mg PO DAILY #30 cap Docusate Sodium [Colace] 100 mg PO BID PRN #60 cap PRN Reason: Constipation Polyethylene Glycol 3350 [MiraLAX] 17 gm PO DAILY #600 gram Home Medications: Home Meds Losartan Potassium 12.5 mg PO BRK 04/04/15 [History] Ca Citrate/Mgox/Vit D3/B6/Min [Calcium Citrate Plus Tablet] 1 tab PO DAILY 06/05 [History] Multivitamin [Multi-Day Vitamins] 1 tab PO DAILY 06/05/16 [History] Cholecalciferol (Vitamin D3) [Vitamin D3] 5,000 units PO Q2D 02/11/17 [History] Albuterol [Ventolin HFA] 2 puff INH ASDIRECTED PRN 10/19/18 [History] Fexofenadine [Lennie] 30 mg PO DAILY 10/19/18 [History] Montelukast Sodium 10 mg PO DAILY 10/19/18 [History] Fluticasone/Vilanterol [Breo Ellipta 100-25 MCG Inhalation Kit] 1 inhalation INH DAILY 04/13/19 [History] Acetaminophen/oxyCODONE [Percocet 325-5 MG] 1 - 2 tab PO Q4H PRN #60 tablet 01/29 [Rx] Aspirin 325 mg PO BID #60 tablet 04/17/19 [Rx] Celecoxib [CeleBREX] 200 mg PO DAILY #30 cap 04/17/19 [Rx] Docusate Sodium [Colace] 100 mg PO BID PRN #60 cap 04/17/19 [Rx] Polyethylene Glycol 3350 [MiraLAX] 17 gm PO DAILY #600 gram 04/17/19 [Rx] Patient Handouts: Docusate Sodium; Senna tablets or capsules, Acetaminophen; Oxycodone tablets, Celecoxib capsules, Total Knee Replacement, Care After, Easy- to-Read, Aspirin, ASA oral tablets, Polyethylene Glycol powder Referrals: Shanice Sigala MD [Physician] - 05/25/19 9:00 am Laurence Layton PA [Physician Turret Lathe Operator] - 04/28/19 10:30 am - Discharge Summary/Plan Comment DC Time >30 min.: No - Patient Data Vitals - Most Recent: Last Vital Signs Temp 36.7 C 04/18/19 12:21 Pulse 61 04/18/19 12:21 Resp 16 04/18/19 12:21 BP 131/67 04/18/19 12:21 Pulse Ox 93 L 04/18/19 12:21 Weight - Most Recent: 81.647 kg I&O - Last 24 hours: Intake & Output 04/18/19 04/19/19 04/19/19 22:59 06:59 14:59 Intake Total 1800 Output Total 450 Balance 1350 Med Orders - Current: Current Medications Discontinued Medications Al Hydroxide/Mg Hydroxide (Mag-Al Plus) 30 ml PO Q4H PRN PRN Reason: Indigestion Albuterol (Ventolin Hfa) 0 gm INH ASDIRECTED PRN PRN Reason: Wheezing Albuterol/Ipratropium (Duoneb 3.0-0.5 Mg/3 Ml) 3 ml NEB Q4HRRT PRN PRN Reason: SOB/wheezing Aspirin (Aspirin) 325 mg PO BID [facility] Last Admin: 04/18/19 08:27 Dose: 325 mg Bisacodyl (Dulcolax) 10 mg RECTAL DAILY PRN PRN Reason: Constipation Celecoxib (Celebrex) 200 mg PO BID [facility] Last Admin: 04/18/19 08:28 Dose: 200 mg Diphenhydramine HCl (Benadryl) 25 - 50 mg PO Q6H PRN PRN Reason: Itching Docusate Sodium (Colace) 100 mg PO BID PRN PRN Reason: Constipation Famotidine (Pepcid) 40 mg IVPUSH ONARRIVE [facility] Last Admin: 04/17/19 09:20 Dose: 40 mg Famotidine (Pepcid) 40 mg PO DAILY [facility] Last Admin: 04/18/19 08:29 Dose: 40 mg Fentanyl (Sublimaze) Confirm Administered Dose 100 mcg .ROUTE .STK-MED ONE Stop: 04/17/19 09:28 Fexofenadine HCl (Lennie) 30 mg PO DAILY [facility] Last Admin: 04/18/19 11:32 Dose: Not Given Acetaminophen 1,000 mg/ Premix 100 mls @ 400 mls/hr IV ONARRIVE [facility] Last Admin: 04/17/19 09:23 Dose: 400 mls/hr Cefazolin Sodium/Dextrose 1 gm (/ Premix) 50 mls @ 100 mls/hr IV ONCALL [facility] Ropivacaine 49.25 ml/Ketorolac Tromethamine 30 mg/Epinephrine HCl 0.5 mg/ Clonidine HCl 80 mcg/ Sodium Chloride 75 mls @ 50 mls/sec INJECT ASDIRECTED [facility] Lactated Ringer's (Ringers, Lactated) 1,000 mls @ 100 mls/hr IV ASDIRECTED [facility] Last Admin: 04/17/19 23:49 Dose: 100 mls/hr Tranexamic Acid 2,000 mg/ (Sodium Chloride) 120 mls @ 600 mls/hr IV ASDIRECTED ONE Stop: 04/17/19 08:11 Last Admin: 04/17/19 12:44 Dose: Not Given Sodium Chloride (Normal Saline) Confirm Administered Dose 20 mls @ as directed .ROUTE .STK-MED ONE Stop: 04/17/19 09:27 Acetaminophen 1,000 mg/ Premix 100 mls @ 400 mls/hr IV Q6H [facility] Stop: 04/18/19 03:14 Last Admin: 04/18/19 03:26 Dose: 400 mls/hr Cefazolin Sodium/Dextrose 1 gm (/ Premix) 50 mls @ 100 mls/hr IV Q8H [facility] Stop: 04/18/19 02:29 Last Admin: 04/18/19 01:49 Dose: 100 mls/hr Ketorolac Tromethamine (Toradol) 15 mg IVPUSH ONARRIVE [facility] Last Admin: 04/17/19 09:18 Dose: 15 mg Ketorolac Tromethamine (Toradol) 15 mg IVPUSH Q6H [facility] Stop: 04/18/19 05:00 Last Admin: 04/18/19 03:26 Dose: 15 mg Losartan Potassium (Cozaar) 12.5 mg PO BRK [facility] Last Admin: 04/18/19 08:25 Dose: 12.5 mg Midazolam HCl (Versed 1 Mg/Ml) Confirm Administered Dose 2 mg .ROUTE .STK-MED ONE Stop: 04/17/19 09:28 Midazolam HCl (Versed 1 Mg/Ml) Confirm Administered Dose 2 mg .ROUTE .STK-MED ONE Stop: 04/17/19 09:28 Midazolam HCl (Versed 1 Mg/Ml) Confirm Administered Dose 2 mg .ROUTE .STK-MED ONE Stop: 04/17/19 10:03 Montelukast Sodium (Singulair) 10 mg PO DAILY [facility] Last Admin: 04/18/19 08:24 Dose: 10 mg Morphine Sulfate (Morphine) 1 - 3 mg IVPUSH Q3H PRN PRN Reason: Pain Ondansetron HCl (Zofran) 4 mg IVPUSH Q6H PRN PRN Reason: Nausea/Vomiting Oxycodone HCl (Oxycodone) 5 - 10 mg PO Q4H PRN PRN Reason: Pain Stop: 04/18/19 08:00 Last Admin: 04/18/19 00:00 Dose: 10 mg Oxycodone/Acetaminophen (Percocet 325-5 Mg) 1 - 2 tab PO Q4H PRN PRN Reason: Pain Last Admin: 04/18/19 08:30 Dose: 2 tab Fluticasone/Vilanterol 1 Inhalation 1 each INH DAILY [facility] Last Admin: 04/18/19 08:48 Dose: 1 each Albuterol Neb 1.25 (Mg/3 Ml - 1 Dose)) 1 each NEB ASDIRECTED PRN PRN Reason: Wheezing Phenylephrine HCl (Brooks-Synephrine) Confirm Administered Dose 10 mg .ROUTE .STK- MED ONE Stop: 04/17/19 10:59 Polyethylene Glycol (Miralax) 17 gm PO DAILY [facility] Last Admin: 04/18/19 08:33 Dose: 17 gm Propofol (Diprivan 20 Ml) Confirm Administered Dose 600 mg .ROUTE .STK-MED ONE Stop: 04/17/19 07:22 Scopolamine (Transderm-Scop) 1.5 mg TRDERM ONARRIVE [facility] Last Admin: 04/17/19 09:14 Dose: 1.5 mg Sodium Chloride (Saline Flush) 10 ml FLUSH ASDIRECTED PRN PRN Reason: Keep Vein Open Sodium Chloride (Saline Flush) 2.5 ml FLUSH ASDIRECTED PRN PRN Reason: Keep Vein Open Tranexamic Acid (Cyklokapron) Confirm Administered Dose 2,000 mg .ROUTE .[facility] ONE Stop: 04/17/19 09:03
--- NOTE | 2019-04-19 17:23 | DISCH ---
DATE OF DISCHARGE: 04/18/2019 PRIMARY CARE PHYSICIAN: Wade Cunningham MD ADMITTING DIAGNOSIS: Painful left total knee arthroplasty. OTHER MEDICAL DIAGNOSES: 1. Hypertension. 2. Asthma, well controlled. 3. Osteoarthritis. 4. Fibromyalgia. 5. Osteoporosis. DISCHARGE MEDICAL DIAGNOSES: 1. Painful left total knee arthroplasty. 2. Status post left knee arthroplasty with replacement of polyethylene liner. 3. Hypertension. 4. Asthma, well controlled. 5. Osteoarthritis. 6. Fibromyalgia. 7. Osteoporosis. HISTORY: This is a 73-year-old female who previously underwent left total knee arthroplasty in 2017, developed arthrofibrosis postoperatively and underwent a knee manipulation. She continued to have pain. Recommendation after further evaluation by Dr. Sigala was to undergo a revision. She underwent revision of left total knee arthroplasty with replacement of polyethylene liner on 04/17/[address] Shanice Sigala. This was performed under spinal with sedation. EBL 20 mL. Tourniquet time 14 minutes. No known surgical complications. She was transferred to PACU, then to Med Surg for postop care. HOSPITAL COURSE: Postoperatively, Michelle did well. Tolerated oral food/fluids without nausea and vomiting. She received 24 hours of antibiotic coverage, Ancef 1 g. Pain was controlled with oxycodone. She did not necessitate IV morphine prn. Physical therapy was initiated in the hospital. She was ambulating well with staff, PT, and wheeled walker. Vital signs stable; Afebrile. Hemoglobin POD #1 stable at 12.2. Surgical dressing was clean, dry, and intact the following morning. This was removed. Incision well approximated with irene. Large Aquacel dressing was applied. DVT prophylaxis included aspirin therapy starting POD#1, support stockings, SCDs bilaterally, and early ambulation. Diligent use of polar ice therapy to minimize swelling. POD#1, she was ready to be discharged home with her . DISCHARGE MEDICATIONS: 1. Percocet 5/325 mg 1 to 2 tabs every 4 hours p.r.n. 2. Aspirin 325 mg b.i.d. 3. Celebrex 200 mg daily. 4. Colace 100 mg b.i.d. p.r.n. 5. MiraLAX 17 g 1 capsule daily. 6. Multivitamin daily. 7. Singulair 10 mg daily. 8. Losartan 25 mg daily. 9. Breo 100/25 mcg 1 inhalation daily. 10.Vitamin D3 daily. 11.Calcium citrate 1 tablet daily. The patient was given Dr. Shanice Sigala's postoperative instruction sheet. 10 day, then 6 weeks followup appointments were scheduled. She is scheduled to continue physical therapy at the [facility]. If she has any questions or concerns, directed to contact Orthopedics Clinic. ENOC / JUSTEN /[id number] MTDD
== END 2019-04-18 15:15 | disposition home or self-care (01) | DRG 468 ==
LOC: MW.MS 08:09 → EDSTATUS 10:00
PROVIDERS: ADMIT Orthopaedic Surgery; ATTEND Orthopaedic Surgery
PROC: 0SPD0JZ Removal of Synthetic Substitute from Left Knee Joint, Open Approach (ICD-10-PCS; principal; 2019-04-17)
PROC: 0SRD0JZ Replacement of Left Knee Joint with Synthetic Substitute, Open Approach (ICD-10-PCS; 2019-04-17)
DX: T84.84XA Pain due to internal orthopedic prosthetic devices, implants and grafts, initial encounter (principal); I10 Essential (primary) hypertension; J45.909 Unspecified asthma, uncomplicated; M79.7 Fibromyalgia; M81.0 Age-related osteoporosis without current pathological fracture; G89.29 Other chronic pain; M54.9 Dorsalgia, unspecified; E66.9 Obesity, unspecified; Y83.9 Surgical procedure, unspecified as the cause of abnormal reaction of the patient, or of later complication, without mention of misadventure at the time of the procedure; Z79.82 Long term (current) use of aspirin; Z79.899 Other long term (current) drug therapy; Z98.49 Cataract extraction status, unspecified eye; Z90.49 Acquired absence of other specified parts of digestive tract; Z90.89 Acquired absence of other organs
CPT/HCPCS: 01402; 36415; 80048; 83735; 85014; 85018; 86850; 86900; 86901; 88300; 88304; 97110-GP; 97161-GP; 97530-GP; A9270-GY; C1776; J0131; J0171; J0690; J0735; J1885; J2250; J2370; J2704; J2795; J3010; J3490; J7050; J7120

== ENCOUNTER 2023-10-18 14:10 | Emergency (ER) | payer MEDICARE, OTHER ==
[2023-10-18 15:01] LABS: CORONAVIRUS COVID-19 NAA NEGATIVE (NEGATIVE); INFLUENZA A NAA NEGATIVE (NEGATIVE); INFLUENZA B NAA NEGATIVE (NEGATIVE)
[2023-10-18 15:46] LABS: BASOPHILS ABSOLUTE AUTO 0.05 K/uL (0.00-0.20); BASOPHILS PERCENT AUTO 0.5 % (0.0-1.0); EOSINOPHILS ABSOLUTE AUTO 0.84 K/uL (0.00-0.45); EOSINOPHILS PERCENT AUTO 8.9 % (0.0-6.0); HEMATOCRIT 40.4 % (37.0-47.0); HEMOGLOBIN 13.7 g/dL (12.0-16.0); IMMATURE GRAN ABSOLUTE AUTO 0.06 K/uL (0.00-0.05); IMMATURE GRAN PERCENT AUTO 0.6 % (0.0-0.4); LYMPHOCYTES ABSOLUTE AUTO 1.72 K/uL (1.00-4.80); LYMPHOCYTES PERCENT AUTO 18.2 % (24.0-44.0); MEAN CORPUSCULAR HEMOGLOBIN 32.2 pg (28.0-32.0); MEAN CORPUSCULAR HGB CONC 33.9 g/dL (32.0-36.0); MEAN CORPUSCULAR VOLUME 95.1 fL (83.0-99.0); MEAN PLATELET VOLUME 9.4 fL (9.4-12.3); MONOCYTES ABSOLUTE AUTO 0.81 K/uL (0.00-0.80); MONOCYTES PERCENT AUTO 8.6 % (0.0-8.0); NEUTROPHILS ABSOLUTE AUTO 5.98 K/uL (1.80-7.70); NEUTROPHILS PERCENT AUTO 63.2 % (41.0-71.0); PLATELET COUNT,PLT 262 K/uL (150-400); RED BLOOD CELL COUNT 4.25 M/uL (4.10-5.30); WHITE BLOOD CELL COUNT,WBC 9.46 K/uL (3.9-11.3)
[2023-10-18 16:11] LABS: A/G RATIO 1.1 (0.9-1.6); ALBUMIN 3.7 g/dL (3.4-5.0); BILIRUBIN TOTAL 0.4 mg/dL (0.2-1.0); CALCIUM 9.2 mg/dL (8.5-10.1); CARBON DIOXIDE,CO2 30.2 mmol/L (21.0-32.0); CREATININE 0.9 mg/dL (0.6-1.0); EST CRCL DRUG DOSING (CG) 40.74 mL/min; POTASSIUM,K 4.2 mmol/L (3.5-5.1); PROTEIN TOTAL,TP 7.1 g/dL (6.4-8.2)
[2023-10-18] MEDS: methylPREDNISolone Sodium Succinate 125 MG/2 ML SDV IVPUSH ONE (16:11)
[2023-10-18] MEDS: Albuterol/Ipratropium 3.0-0.5 MG/3 ML Neb Soln NEB ONE (16:11)
[2023-10-18] MEDS: Sodium Chloride 0.9% 500 ML IV SCH (16:11)
[2023-10-18 17:05] VITALS: BP 146/80
[2023-10-18 18:16] VITALS: PULSE 88
== END 2023-10-18 18:16 | disposition home or self-care (01) ==
LOC: MW.ED 14:10
DX: J45.31 Mild persistent asthma with (acute) exacerbation (principal); I10 Essential (primary) hypertension; Z79.82 Long term (current) use of aspirin; Z79.899 Other long term (current) drug therapy; Z90.49 Acquired absence of other specified parts of digestive tract; Z90.710 Acquired absence of both cervix and uterus
CPT/HCPCS: 0240U; 36415; 71046; 80053; 84484; 85025; 93005; 96361; 96374; 99285; J2930; J7040; 93010; 99284; J7620-GY

== ENCOUNTER 2023-10-25 09:57 | Emergency (ER) | payer MEDICARE, OTHER ==
[2023-10-25 12:40] LABS: CORONAVIRUS COVID-19 NAA POSITIVE (NEGATIVE); INFLUENZA A NAA NEGATIVE (NEGATIVE); INFLUENZA B NAA NEGATIVE (NEGATIVE)
[2023-10-25 13:31] VITALS: BP 154/82; PULSE 88
== END 2023-10-25 13:29 | disposition home or self-care (01) ==
LOC: MW.ED 09:57
DX: U07.1 COVID-19 (principal); I10 Essential (primary) hypertension; J45.909 Unspecified asthma, uncomplicated; E66.9 Obesity, unspecified; Z68.44 Body mass index [BMI] 60.0-69.9, adult; Z79.899 Other long term (current) drug therapy; Z90.49 Acquired absence of other specified parts of digestive tract; Z90.710 Acquired absence of both cervix and uterus
CPT/HCPCS: 0240U; 71046; 99284

== ENCOUNTER 2023-12-03 19:35 | Inpatient (IN) | payer MEDICARE, OTHER ==
[2023-12-03] MEDS: Magnesium Sulfate/Water 2 GM in Premix Bag 1 BAG IV ONE (20:28)
[2023-12-03] MEDS: Albuterol 0.083% 2.5 MG/3 ML Neb Soln NEB ONE ×2 (20:28→22:34)
[2023-12-03 20:29] LABS: BASOPHILS ABSOLUTE AUTO 0.06 K/uL (0.00-0.20); BASOPHILS PERCENT AUTO 0.7 % (0.0-1.0); EOSINOPHILS ABSOLUTE AUTO 0.95 K/uL (0.00-0.45); EOSINOPHILS PERCENT AUTO 11.3 % (0.0-6.0); HEMATOCRIT 38.5 % (37.0-47.0); HEMOGLOBIN 13.1 g/dL (12.0-16.0); IMMATURE GRAN ABSOLUTE AUTO 0.01 K/uL (0.00-0.05); IMMATURE GRAN PERCENT AUTO 0.1 % (0.0-0.4); LYMPHOCYTES ABSOLUTE AUTO 1.71 K/uL (1.00-4.80); LYMPHOCYTES PERCENT AUTO 20.3 % (24.0-44.0); MEAN CORPUSCULAR HEMOGLOBIN 32.5 pg (28.0-32.0); MEAN CORPUSCULAR VOLUME 95.5 fL (83.0-99.0); MEAN PLATELET VOLUME 9.6 fL (9.4-12.3); MONOCYTES ABSOLUTE AUTO 0.72 K/uL (0.00-0.80); MONOCYTES PERCENT AUTO 8.6 % (0.0-8.0); NEUTROPHILS ABSOLUTE AUTO 4.96 K/uL (1.80-7.70); PLATELET COUNT,PLT 239 K/uL (150-400); RED BLOOD CELL COUNT 4.03 M/uL (4.10-5.30); WHITE BLOOD CELL COUNT,WBC 8.41 K/uL (3.9-11.3)
[2023-12-03] MEDS: Sodium Chloride 0.9% 2.5 ML Syringe FLUSH PRN (20:29)
[2023-12-03] MEDS: Sodium Chloride 0.9% 10 ML Syringe FLUSH PRN (20:29)
[2023-12-03] MEDS: methylPREDNISolone Sodium Succinate 125 MG/2 ML SDV IM ONE (20:33)
[2023-12-03] MEDS: methylPREDNISolone Sodium Succinate 125 MG/2 ML SDV IVPUSH ONE (20:33)
[2023-12-03 21:01] LABS: A/G RATIO 1.1 (0.9-1.6); ALANINE AMINOTRANSFERASE,ALT 46 IU/L (14-63); ALBUMIN 3.7 g/dL (3.4-5.0); ALKALINE PHOSPHATASE 96 U/L (46-116); ASPARTATE AMNIOTRANSFERASE,AST 44 IU/L (15-37); BILIRUBIN TOTAL 0.5 mg/dL (0.2-1.0); BLOOD UREA NITROGEN,BUN 15 mg/dL (7.0-18.0); CALCIUM 9.5 mg/dL (8.5-10.1); CARBON DIOXIDE,CO2 28.8 mmol/L (21.0-32.0); CHLORIDE,CL 105 mmol/L (98-107); GLUCOSE RANDOM 118 mg/dL (74-106); POTASSIUM,K 3.9 mmol/L (3.5-5.1); SODIUM,NA 142 mmol/L (136-145)
[2023-12-03 21:03] LABS: ESTIMATED GFR 58 mL/min (>60)
[2023-12-03 21:16] LABS: CORONAVIRUS COVID-19 NAA POSITIVE (NEGATIVE); INFLUENZA A NAA NEGATIVE (NEGATIVE); INFLUENZA B NAA NEGATIVE (NEGATIVE); RESPIRATORY SYNCYTIAL VIR NAA NEGATIVE (NEGATIVE)
[2023-12-03] MEDS: cefTRIAXone 500 MG in Sodium Chloride 0.9% 50 ML IV ONE (22:50)
[2023-12-03] MEDS ORDERED: Acetaminophen 650 MG Supp RECTAL PRN (23:12)
[2023-12-03] MEDS ORDERED: Ondansetron 4 MG/2 ML SDV IVPUSH PRN (23:12)
[2023-12-03] MEDS ORDERED: Polyethylene Glycol 3350 Powder 17 GM Packet PO PRN (23:12)
[2023-12-03] MEDS ORDERED: Acetaminophen 325 MG Tab PO PRN (23:12)
[2023-12-04] MEDS: cefTRIAXone 2 GM in Sodium Chloride 0.9% 50 ML IV SCH ×2 (00:36→22:54)
[2023-12-04] MEDS: cefTRIAXone 500 MG in Sodium Chloride 0.9% 50 ML IV ONE (00:37)
[2023-12-04] MEDS: Heparin Sodium 5,000 Units/ML Vial SUBCUT SCH (00:38)
[2023-12-04 01:18] LABS: APPEARANCE,URINE CLEAR; BILIRUBIN,URINE NEGATIVE (NEGATIVE); COLOR,URINE YELLOW; GLUCOSE,URINE NEGATIVE (NEGATIVE); KETONES,URINE 15 mg/dL (NEGATIVE); LEUKOCYTE ESTERASE,URINE NEGATIVE (NEGATIVE); NITRITE,URINE NEGATIVE (NEGATIVE); OCCULT BLOOD,URINE NEGATIVE (NEGATIVE); PROTEIN,URINE NEGATIVE (NEGATIVE); UROBILINOGEN,URINE 0.2 EU/dL (<2.0)
[2023-12-04 04:03] LABS: LACTIC ACID 2.4 mmol/L (0.4-2.0)
[2023-12-04] MEDS: Sodium Chloride 0.9% 1,000 ML IV STA (04:18)
[2023-12-04] MEDS: Albuterol/Ipratropium 3.0-0.5 MG/3 ML Neb Soln NEB PRN (05:39)
[2023-12-04 08:02] LABS: BASOPHILS ABSOLUTE AUTO 0.01 K/uL (0.00-0.20); BASOPHILS PERCENT AUTO 0.2 % (0.0-1.0); HEMATOCRIT 35.7 % (37.0-47.0); HEMOGLOBIN 12.3 g/dL (12.0-16.0); IMMATURE GRAN ABSOLUTE AUTO 0.02 K/uL (0.00-0.05); IMMATURE GRAN PERCENT AUTO 0.4 % (0.0-0.4); LYMPHOCYTES ABSOLUTE AUTO 0.51 K/uL (1.00-4.80); LYMPHOCYTES PERCENT AUTO 10.5 % (24.0-44.0); MEAN CORPUSCULAR HGB CONC 34.5 g/dL (32.0-36.0); MEAN CORPUSCULAR VOLUME 95.7 fL (83.0-99.0); MEAN PLATELET VOLUME 9.8 fL (9.4-12.3); MONOCYTES ABSOLUTE AUTO 0.04 K/uL (0.00-0.80); MONOCYTES PERCENT AUTO 0.8 % (0.0-8.0); NEUTROPHILS ABSOLUTE AUTO 4.27 K/uL (1.80-7.70); NEUTROPHILS PERCENT AUTO 88.1 % (41.0-71.0); PLATELET COUNT,PLT 228 K/uL (150-400); RED BLOOD CELL COUNT 3.73 M/uL (4.10-5.30); WHITE BLOOD CELL COUNT,WBC 4.85 K/uL (3.9-11.3)
[2023-12-04 08:10] LABS: CALCIUM 8.7 mg/dL (8.5-10.1); CARBON DIOXIDE,CO2 25.6 mmol/L (21.0-32.0); CREATININE 0.8 mg/dL (0.6-1.0); EST CRCL DRUG DOSING (CG) 47.94 mL/min; MAGNESIUM 2.1 mg/dL (1.8-2.4); POTASSIUM,K 4.3 mmol/L (3.5-5.1)
[2023-12-04] MEDS: Losartan 25 MG Tab PO SCH (08:46)
[2023-12-04] MEDS: methylPREDNISolone Sodium Succinate 40 MG/1 ML SDV IVPUSH SCH (08:47)
[2023-12-04] MEDS: Albuterol 0.083% 2.5 MG/3 ML Neb Soln NEB PRN (11:40)
[2023-12-04] MEDS: Pantoprazole 40 MG in Sodium Chloride 0.9% 10 ML IVPUSH SCH (11:40)
[2023-12-04] MEDS: Iopamidol 755 MG/ML 500 ML Multipack Bottle IVPUSH STA (12:15)
[2023-12-04] MEDS: Melatonin 3 MG Tab PO PRN (22:54)
[2023-12-04] MEDS: Lactated Ringers 1,000 ML IV SCH (22:55)
[2023-12-05 06:03] LABS: BASOPHILS ABSOLUTE AUTO 0.01 K/uL (0.00-0.20); BASOPHILS PERCENT AUTO 0.1 % (0.0-1.0); HEMOGLOBIN 11.6 g/dL (12.0-16.0); IMMATURE GRAN ABSOLUTE AUTO 0.08 K/uL (0.00-0.05); IMMATURE GRAN PERCENT AUTO 0.7 % (0.0-0.4); LYMPHOCYTES PERCENT AUTO 6.7 % (24.0-44.0); MEAN CORPUSCULAR HEMOGLOBIN 33.1 pg (28.0-32.0); MEAN CORPUSCULAR HGB CONC 34.1 g/dL (32.0-36.0); MEAN CORPUSCULAR VOLUME 97.1 fL (83.0-99.0); MEAN PLATELET VOLUME 9.7 fL (9.4-12.3); MONOCYTES ABSOLUTE AUTO 0.34 K/uL (0.00-0.80); MONOCYTES PERCENT AUTO 2.8 % (0.0-8.0); NEUTROPHILS ABSOLUTE AUTO 10.71 K/uL (1.80-7.70); NEUTROPHILS PERCENT AUTO 89.7 % (41.0-71.0); PLATELET COUNT,PLT 234 K/uL (150-400); WHITE BLOOD CELL COUNT,WBC 11.94 K/uL (3.9-11.3)
[2023-12-05 06:27] LABS: CALCIUM 8.8 mg/dL (8.5-10.1); CARBON DIOXIDE,CO2 27.8 mmol/L (21.0-32.0); EST CRCL DRUG DOSING (CG) 38.35 mL/min; MAGNESIUM 2.2 mg/dL (1.8-2.4); POTASSIUM,K 4.5 mmol/L (3.5-5.1)
[2023-12-05] MEDS: LORazepam 2 MG/ML SDV IVPUSH ONE (12:08)
[2023-12-05] MEDS: Lactated Ringers 1,000 ML IV SCH (12:09)
[2023-12-05] MEDS ORDERED: hydrOXYzine Pamoate 25 MG Cap PO PRN (18:33)
[2023-12-05] MEDS ORDERED: LORazepam 0.5 MG Tab PO PRN (18:50)
[2023-12-05] MEDS: Benzonatate 100 MG Cap PO PRN (23:30)
[2023-12-06 05:54] LABS: BASOPHILS ABSOLUTE AUTO 0.01 K/uL (0.00-0.20); BASOPHILS PERCENT AUTO 0.1 % (0.0-1.0); EOSINOPHILS ABSOLUTE AUTO 0.01 K/uL (0.00-0.45); EOSINOPHILS PERCENT AUTO 0.1 % (0.0-6.0); HEMATOCRIT 34.8 % (37.0-47.0); HEMOGLOBIN 11.6 g/dL (12.0-16.0); IMMATURE GRAN ABSOLUTE AUTO 0.06 K/uL (0.00-0.05); IMMATURE GRAN PERCENT AUTO 0.7 % (0.0-0.4); LYMPHOCYTES ABSOLUTE AUTO 2.14 K/uL (1.00-4.80); LYMPHOCYTES PERCENT AUTO 24.2 % (24.0-44.0); MEAN CORPUSCULAR HEMOGLOBIN 32.4 pg (28.0-32.0); MEAN CORPUSCULAR HGB CONC 33.3 g/dL (32.0-36.0); MEAN CORPUSCULAR VOLUME 97.2 fL (83.0-99.0); MEAN PLATELET VOLUME 9.6 fL (9.4-12.3); MONOCYTES ABSOLUTE AUTO 0.57 K/uL (0.00-0.80); MONOCYTES PERCENT AUTO 6.4 % (0.0-8.0); NEUTROPHILS ABSOLUTE AUTO 6.05 K/uL (1.80-7.70); NEUTROPHILS PERCENT AUTO 68.5 % (41.0-71.0); PLATELET COUNT,PLT 204 K/uL (150-400); RED BLOOD CELL COUNT 3.58 M/uL (4.10-5.30); WHITE BLOOD CELL COUNT,WBC 8.84 K/uL (3.9-11.3)
[2023-12-06 06:29] LABS: ALBUMIN 2.8 g/dL (3.4-5.0); BILIRUBIN TOTAL 0.2 mg/dL (0.2-1.0); CALCIUM 8.6 mg/dL (8.5-10.1); CREATININE 0.9 mg/dL (0.6-1.0); EST CRCL DRUG DOSING (CG) 42.61 mL/min; POTASSIUM,K 3.9 mmol/L (3.5-5.1); PROTEIN TOTAL,TP 5.6 g/dL (6.4-8.2)
[2023-12-06 07:52] VITALS: PULSE 74
[2023-12-06] MEDS: predniSONE 20 MG Tab PO SCH (07:54)
[2023-12-06 12:21] VITALS: BP 145/84
[2023-12-06] MEDS ORDERED: cefTRIAXone 1 GM in Sodium Chloride 0.9% 50 ML IV SCH (23:00)
[2023-12-07] MEDS ORDERED: Pantoprazole 40 MG Tab.CR PO SCH (07:30)
== END 2023-12-06 12:40 | disposition home or self-care (01) | DRG 189 ==
LOC: MW.ED 19:35 → MW.MS 22:46
PROVIDERS: ADMIT Family Medicine; ATTEND Family Medicine
DX: R06.02 Shortness of breath (principal); J96.01 Acute respiratory failure with hypoxia; J45.31 Mild persistent asthma with (acute) exacerbation; I10 Essential (primary) hypertension; E78.2 Mixed hyperlipidemia; E66.09 Other obesity due to excess calories; M81.0 Age-related osteoporosis without current pathological fracture; E55.9 Vitamin D deficiency, unspecified; Z68.31 Body mass index [BMI] 31.0-31.9, adult; Z86.16 Personal history of COVID-19; Z90.49 Acquired absence of other specified parts of digestive tract; Z79.899 Other long term (current) drug therapy; Z90.710 Acquired absence of both cervix and uterus; Z96.659 Presence of unspecified artificial knee joint; Z98.890 Other specified postprocedural states
CPT/HCPCS: 0241U; 36415; 71045; 71275; 80048; 80053; 81003; 83605; 83735; 84484; 85025; 87040; 93005; 94640; 96365; 96375; 99285; 93010; 99291; A9270-GY; C9113; J0696; J1644; J2060; J2920; J2930; J3475; J3490; J7030; J7120; J7620-GY; Q9967